=== PATIENT | female | born 1990 | race Caucasian/White ===

== ENCOUNTER 2018-07-22 09:36 | Emergency (ER) | payer MEDICAID, SELFPAY ==
[2018-07-22 09:40] VITALS: BP 118/64; PULSE 109; RESP 16; TEMP 36.2; O2SAT 97
--- NOTE | 2018-07-22 11:09 | ED.GENADUL_ITS ---
Discharge Plan Disposition Patient Disposition: HOME Condition: Stable Discharge Details Chief Complaint: Sorethroat Clinical Impression: Strep tonsillitis Primary Care Provider: None,None ED Provider: Sj Kohler Home Meds and New Rx's Prescriptions: New amoxicillin 500 mg capsule 500 mg PO BID Qty: 20 RF: 0 Continued Mini Pill 1 tab PO DAILY RF: 0 Discharge Instructions Instructions: Strep Throat (ED) Additional Instructions: Take antibiotic's as prescribed and until fully gone. Please return to the [facility] department for any new or significant worsening of symptoms otherwise follow-up with primary care provider for reassessment if not improving after antibiotics are completed Stand Alone Forms: Work Release Referrals: Primary Care Provider [Outside] (As needed for reassessment) Discharge Data Discharge Date/Time-TO BE ENTERED AT DEPARTURE: 07/22/18 13:17 Medical Decision Making Patient presenting the emergency department for chief complaint of sore throat for last 3 days. She states chills throughout the evening and fever at night that seemed to resolve by morning and symptoms have slightly improved but given that this is been persistent for the last 3 days with some lymph node swelling to her neck she is presenting for concern of strep throat. Patient denies any nasal congestion cough, or secondary symptoms. Patient has bilateral tonsillary erythema and hypertrophy with superior anterior cervical lymphadenopathy that is also mild otherwise patient is nontoxic in appearance uvula midline no signs of Vikas's angina, peritonsillar abscess, or retropharyngeal abscess. 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 This does correlate with patient's clinical symptoms and physical exam. Patient placed upon amoxicillin for 10 days. Return precautions discussed. After discussion of diagnosis and plan of care patient has no further needs, questions, or concerns and states clear understanding to return to the emergency department for any worsening symptoms. HPI General Mode of arrival: ambulatory . Date/Time Provider Initiated Documentation: 07/22/18 10:51 . Limitations to Documentation: no limitations . Information obtained by: patient and RN notes reviewed . History of Present Illness 28 year old F presents to the emergency department with the chief complaint of Sore throat, described as moderate, with intensity rated at 5. Quality is described as aching, and is localized to the mouth (Sore throat). Patient started experiencing this day(s) (3) and it has been intermittent. No relieving factors improve symptom(s), Patient did receive the following treatments prior to arrival, none Related Data Home Medications Medication Instructions Recorded Confirmed Mini Pill 1 tab PO DAILY 07/22/18 amoxicillin 500 mg PO BID #20 cap 07/22/18 Previous Rx's Medication Instructions Recorded amoxicillin 500 mg PO BID #20 cap 07/22/18 Allergies Allergy/AdvReac Type Severity Reaction Status Date / Time sulfamethoxazole Allergy Severe Unverified 07/22/18 09:42 [From ] trimethoprim [From ] Allergy Severe Unverified 07/22/18 09:42 Latex, Natural Rubber Allergy Intermediate Swelling/Ed Unverified 07/22/18 09:42 alonso General Stated Complaint: Sorethroat LAURA: 4 Review of Systems Constitutional Reports chills, Reports fever(s) and Denies headache(s) ENT Denies change in voice, Denies dysphagia, Denies otalgia, Denies headache(s), Denies hoarseness, Denies lip swelling, Denies mouth lesions, Denies nasal congestion, Reports odynophagia, Reports sore throat, Denies throat swelling and Denies tongue swelling Cardiovascular Denies chest pain Respiratory Denies chest congestion and Denies cough Gastrointestinal Denies dysphagia and Reports odynophagia Neurologic Denies headache(s) Allergic/Immunologic Denies lip swelling, Denies throat swelling and Denies tongue swelling [facility] Social History Smoking/Tobacco Use Status: Never Drug use: Occasionally Exam Const General: cooperative, healthy appearing, comfortable, no acute distress and not ill appearing Orientation: alert, awake and oriented x3 HENMT Head: normal to inspection and normocephalic Ears: hearing grossly normal bilaterally, external ears normal, TM's normal bilaterally and mastoids normal General nose exam: external nose normal and nares normal Face and sinus: normal facial exam Mouth: oral mucosae normal, lip normal, tongue normal, no audible dysphonia, no drooling and no trismus Throat: uvula midline, abnormal tonsil bilaterally erythema and hypertrophy 2+, no peritonsillar masses and posterior oropharynx abnormal erythema Neck Neck: normal visual inspection, full ROM, no meningeal signs and lymphadenopathy (Mild superior anterior cervical) Resp Effort & Inspection: normal respiratory effort, able to speak in complete sentences and no stridor Skin General skin exam: no rashes or lesions noted Course Vital Signs Temperature 36.2 C L 07/22/18 09:40 Pulse 109 H 07/22/18 09:40 Respiratory Rate 16 07/22/18 09:40 Blood Pressure 118/64 07/22/18 09:40 Pulse Oximetry 97 07/22/18 09:40 Temperature 36.2 C L 07/22/18 09:40 Temperature Source Skin 07/22/18 09:40 Pulse 109 H 07/22/18 09:40 Respiratory Rate 16 07/22/18 09:40 Respiratory Effort Non-Labored 07/22/18 09:41 Blood Pressure 118/64 07/22/18 09:40 Blood Pressure Position Sitting 07/22/18 09:40 Pulse Oximetry 97 07/22/18 09:40 Oxygen Delivery Method Room Air 07/22/18 09:40 Oxygen Flow Rate 0 07/22/18 09:40 Pain Level 5 07/22/18 09:40 Lab/Test Results Lab/Test Results: POC Strep Test-YUMIKO(Rapid) Start: 07/22/18 09:54 Freq: .Rapid Strep Test Status: Active Protocol: Document 07/22/18 09:55 MMQ (Rec: 07/22/18 09:55 MMQ [id number]) Strep test-YUMIKO(Rapid)-POC POC-Strep test-YUMIKO (Rapid) Positive POC-Strep test-YUMIKO (Rapid) Positive
== END 2018-07-22 13:17 | disposition home or self-care (01) ==
PROVIDERS: Emergency Provider Nurse Practitioner Family
DX: J03.00 Acute streptococcal tonsillitis, unspecified (principal)
CPT/HCPCS: 87880; 99283

== ENCOUNTER 2020-12-25 02:03 | Emergency (ER) | payer MEDICAID, SELFPAY ==
--- NOTE | 2020-12-25 02:06 | ED.GENADUL_ITS ---
Discharge Plan Disposition Patient Disposition: HOME Condition: Good Discharge Details Clinical Impression: Kidney stone Primary Care Provider: None,None ED Provider: Piyush Henson Home Meds and New Rx's Prescriptions: New cephalexin 500 mg capsule 500 mg PO QID 3 Days Qty: 12 RF: 0 Continued [id number]-lac-Nn-FA 1 mg Tablet 1 tab PO DAILY RF: 0 Discharge Instructions Instructions: Kidney Stones (ED) Additional Instructions: At this time your symptoms and urinalysis are concerning for potential kidney stone. Please drink plenty of fluids, take Tylenol and the pain pills as needed. The pain pills do have Tylenol in them, you can take 500 mg Tylenol with them. Due to your we have decided to hold off on imaging at this time. If you have continued pain over the next 36 hours does not get better please return for reassessment and potential x-ray and ultrasound. Please use the urine strainer to look for your kidney stone. As a precaution we have started you on an antibiotic to prevent any infection associated with potential kidney stone. It is been sent to your pharmacy. Please take this as directed. If you notice any worsening of your symptoms, or any new symptoms such as vomiting, diarrhea, fever, chills, shortness of breath, chest pain, numbness, weakness, or fainting , please return immediately to the emergency department for reevaluation. Please follow up with your primary care provider as soon as possible for reassessment and reevaluation. As always, it was a pleasure participating in your medical care today. Stand Alone Forms: Work Release Referrals: Sj Suazo [ [facility] STAFF PHYSICIAN] - Medical Decision Making 30-year-old female who is a currently 17 weeks presents today for evaluation of left flank pain. Flank pain came on suddenly a few hours ago when the patient was at work. She denies any radiation to her groin. She denies any vaginal discharge or pelvic cramping. She denies any history of kidney stones. She denies any urinary frequency or burning. She did take 500 mg of Tylenol at home and this did not change anything. No other modifying factors. No other complaints at this time. Physical exam demonstrates no flank or CVA tenderness, mild left paraspinal spasm. Bedside ultrasound demonstrates minimal hydronephrosis on the left kidney, no hydronephrosis on the right. Urinalysis shows no evidence of infection, but does show evidence of moderate blood and 20-50 RBCs. As well as rare calcium oxalate stones. Suspect concern for potential kidney stone as this would correlate with the patient's signs and symptoms. Due to the patient's current after discussing the risks and benefits patient would like to hold off on radiographic imaging at this time. I do feel this is appropriate. Patient drove herself, and is not a candidate for IM narcotics at this time. She does not have someone who can pick her up. We will give her [place] to go. Out of an abundance of precaution we will start the patient on Keflex to prevent any infection. Recommend that the patient return for reassessment if she has continued pain after 36 hours. Recommend continued hydration, Tylenol, [place] as needed. Discussed red flags for which to return. I have extensively reviewed the treatment plan and discharge instructions with the patient. I have addressed all patient concerns at this time. The patient was made aware of what symptoms to monitor for that would warrant a return to the emergency department. Discussed the plan with the patient, they demonstrate verbal understanding and agreement with our assessment and plan at this time. The documentation in this chart was dictated using [employer] dictation software. Please excuse any dictation errors. HPI General Date/Time Provider Initiated Documentation: 12/25/20 02:04 . HPI Narrative: 30-year-old female who is a currently 17 weeks presents today for evaluation of left flank pain. Flank pain came on suddenly a few hours ago when the patient was at work. She denies any radiation to her groin. She denies any vaginal discharge or pelvic cramping. She denies any history of kidney stones. She denies any urinary frequency or burning. She did take 500 mg of Tylenol at home and this did not change anything. No other modifying fa ctors. No other complaints at this time. Related Data Home Medications Medication Instructions Recorded Confirmed cephalexin 500 mg PO QID 3 Days #12 cap 12/25/20 [id number]-FA 1 tab PO DAILY 12/25/20 12/25/20 Previous Rx's Medication Instructions Recorded cephalexin 500 mg PO QID 3 Days #12 cap 12/25/20 Allergies Allergy/AdvReac Type Severity Reaction Status Date / Time sulfamethoxazole Allergy Severe Unverified 12/25/20 02:17 [From ] trimethoprim [From ] Allergy Severe Unverified 12/25/20 02:17 Latex, Natural Rubber Allergy Intermediate Swelling/Ed Unverified 12/25/20 02:17 alonso General LAURA: 4 Review of Systems All systems reviewed & are unremarkable except as noted in HPI and below PFSH Social History Smoking/Tobacco Use Status: Never Smoking risk assessment performed?: Yes Alcohol Intake: never Drug use: Occasionally Exam Narrative Exam Narrative: 1.Const: Well-nourished, Well-developed, appearing stated age 2.Eyes: PERRL, no conjunctival injection, and symmetrical lids. 3.ENT: Atraumatic external nose and ears. Moist MM. Neck: Symmetric, trachea midline, No thyromegaly. 4.CVS: +S1/S2, No murmurs or gallops. Peripheral pulses 2+ and equal in all extremities. Brisk capillary refill in all extremities. 5.RESP: Unlabored respiratory effort. Clear to auscultation bilaterally. No wheezes rales or rhonchi 6.GI: Soft, Nontender/Nondistended, No hepatosplenomegaly. No guarding or rebound. No flank or CVA tenderness. No pelvic or suprapubic tenderness. 7.MSK: Normocephalic/Atraumatic, Extremities w/o deformity or ttp No cyanosis or clubbing, Normal movement of all extremities 8.Skin: Warm, Dry. No rashes or lesions. 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 Sensation grossly intact, no focal neurologic deficits. 10.Psych: (AAO) x3. Appropriate mood and affect
[2020-12-25 02:07] VITALS: BP 137/69; PULSE 106; RESP 16; TEMP 36.7; O2SAT 97
[2020-12-25 02:24] LABS: Bilirubin Negative (Negative); Blood Moderate (Negative); Clarity Sl Cloudy (Clear); Glucose Negative (Negative); Ketones >=160 mg/dL (Negative); Leukocyte Esterase Negative (Negative); Nitrite Negative (Negative); Specific Gravity >= 1.030 (1.005-1.025); Urobilinogen 0.2 EU/dL (Up TO 0.2)
[2020-12-25] MEDS: Lidocaine 5% Patch 1 PATCH TP (02:24)
[2020-12-25 02:33] LABS: Bacteria Few HPF (Negative); C & S Indicated? No/Sq. Contamination; Casts Negative LPF (Negative); Crystals Rare Calcium Oxalate HPF (Negative); Epithelial Cells Moderate HPF (Negative); Mucus Moderate (Negative); RBC 20-50 HPF (0-2)
[2020-12-25] MEDS: Cephalexin 500 MG CAP, 4 CAPS/BTL PO (02:58)
== END 2020-12-25 03:49 | disposition home or self-care (01) ==
LOC: ER 03:01
PROVIDERS: Emergency Provider Student in an Organized Health Care Education/Training Program
DX: O26.892 Other specified pregnancy related conditions, second trimester (principal); N20.0 Calculus of kidney; Z3A.17 17 weeks gestation of pregnancy
CPT/HCPCS: 99284; 81003; 81015; 99283

== ENCOUNTER 2021-10-31 12:28 | Emergency (ER) | payer MEDICAID, SELFPAY ==
[2021-10-31 12:38] VITALS: BP 134/78; PULSE 98; RESP 18; TEMP 37.1; O2SAT 97
== END 2021-10-31 16:16 | disposition left before discharge ==
DX: Z53.21 Procedure and treatment not carried out due to patient leaving prior to being seen by health care provider (principal)

== ENCOUNTER 2022-01-02 14:54 | Emergency (ER) | payer MEDICAID, SELFPAY ==
[2022-01-02 14:58] VITALS: BP 135/86; PULSE 98; RESP 16; TEMP 36.6; O2SAT 98
--- NOTE | 2022-01-02 15:23 | ED.GENADUL_ITS ---
Discharge Plan Disposition Patient Disposition: HOME Condition: Stable Discharge Details Chief Complaint: Urinary Clinical Impression: Hematuria Primary Care Provider: None,None ED Provider: Pablito Dickens Home Meds and New Rx's Prescriptions: No Action [id number]-Sr-[id number] 1 mg Tablet 1 tab PO DAILY Discharge Instructions Instructions: Hematuria (ED) Additional Instructions: Please follow-up with your primary care physician. Please follow-up with urology as scheduled. Return to the emergency department for any worsening symptoms Medical Decision Making 31-year-old female history of kidney stones, currently 7 months , presents with asymptomatic hematuria over the last several hours, denies frequency urgency or dysuria denies back pain fevers chills nausea or vomiting, denies vaginal bleeding or rectal bleeding. No new strenuous physical activity that would predispose her to rhabdo. Consider early UTI versus asymptomatic kidney stone versus less likely rhabdomyolysis; will obtain UA as well as urine . Pending results consider disposition with treatment for UTI versus further labs and possibly imaging. Patient currently resting comfortably no acute distress afebrile nontoxic. 16: 07 evidence of hematuria. No evidence of UTI. Given asymptomatic nontoxic afebrile will have patient follow-up closely with urology. Given home care instructions and return precautions. HPI General Date/Time Provider Initiated Documentation: 01/02/22 15:13 . HPI Narrative: 31-year-old female history of kidney stones, presents with asymptomatic bloody urine, denies fevers chills nausea vomiting back pain or urinary symptoms such as frequency or dysuria. Currently is 7 months . No recent heavy exertion Related Data Home Medications Medication Instructions Recorded Confirmed ofuvewcp-zie-Ac-FA 1 mg 1 tab PO DAILY 12/25/20 01/02/22 tablet Allergies Allergy/AdvReac Type Severity Reaction Status Date / Time sulfamethoxazole Allergy Severe Unverified 12/25/20 02:17 [From ] trimethoprim [From ] Allergy Severe Unverified 12/25/20 02:17 Latex, Natural Rubber Allergy Intermediate Swelling/Ed Unverified 12/25/20 02:17 alonso General Stated Complaint: Urinary LAURA: 4 Review of Systems Narrative: Review of Systems Constitutional: negative Eyes: negative ENT: negative Cardiovascular: negative Respiratory: negative Gastrointestinal: negative : Bloody urine Musculoskeletal: negative Skin: negative Neurologic: negative Psych: negative PFSH All Active Problems (Updated 01/02/22 @ 16:08 by Pablito Dickens MD) Kidney stone (Chronic) Hematuria (Acute) Social History Smoking/Tobacco Use Status: Never Smoking risk assessment performed?: Yes Alcohol Intake: current Alcohol Intake frequency: a few times a month Alcohol type: hard liquor Drug use: Occasionally Substance use type: marijuana Do you feel safe at home: Yes Do you feel safe in your relationship?: Yes Exam Narrative Exam Narrative: Physical Examination General: alert, awake, cooperative, resting comfortably, no acute distress HEENT: normocephalic, atraumatic; PERRL, EOM intact, conjunctiva normal; no nasal discharge; moist mucous membranes, oral and pharyngeal mucosa normal, tolerating secretions Neck: supple, trachea midline; full ROM Chest: normal to inspection Respiratory: normal respiratory effort, speaking in full sentences, clear to auscultation, no wheezing, rales or rhonchi Cardiac: regular rate, regular rhythm, S1S2 intact, no murmurs rubs or gallops GI: abdomen soft, non-tender, non-distended; no palpable mass or hepatosplenomegaly : No CVA tenderness Skin: no lesions, rashes or trauma appreciated Neuro: AAOx3, normal speech, moving all extremities Psych: Appropriate mood and affect Course Vital Signs Vital signs: Vital Signs Temperature 36.6 C 01/02/22 14:58 Pulse 98 H 01/02/22 14:58 Respiratory Rate 16 01/02/22 14:58 Blood Pressure 135/86 01/02/22 14:58 Pulse Oximetry 98 01/02/22 14:58 Temperature 36.6 C 01/02/22 14:58 Temperature Source Temporal Artery Scan 01/02/22 14:58 Pulse 98 H 01/02/22 14:58 Respiratory Rate 16 01/02/22 14:58 Respiratory Effort Non-Labored 01/02/22 15:02 Blood Pressure 135/86 01/02/22 14:58 Blood Pressure Position Sitting 01/02/22 14:58 Pulse Oximetry 98 01/02/22 14:58 Oxygen Delivery Method Room Air 01/02/22 14:58 Oxygen Flow Rate 0 01/02/22 14:58 Pain Level 0 01/02/22 15:05 PAWSS Have you Been Recently Intoxicated or Drunk Within the Last 30 days?: No Have you Ever Experienced Previous Episodes of Alcohol Withdrawal?: No Have you ever Experienced Withdrawal Seizures?: No Have you ever Experienced Delirium Tremens(DT)s?: No Have you ever undergone Alcohol Rehabilitation Treatment (i.e, inpt ot outpatient treatment programs)?: No Have you ever Experienced Blackouts?: No Have you ever Combined Alcohol with other Downers within the last 90 days?: No Have you ever Combined Alcohol with any other Substance of Abuse during the last 90 days?: No Positive Blood Alcohol level on Presentation? [PCS.BAL]: No Evidence of Increased Autonomic Activity (i.e. HR>120, tremor, sweating, agitation, nausea)?: No Result: 0
[2022-01-02 15:50] LABS: Bilirubin Negative (Negative); Blood Large (Negative); Clarity Cloudy (Clear); Glucose Negative (Negative); Ketones Negative (Negative); Leukocyte Esterase Negative (Negative); Nitrite Negative (Negative); Specific Gravity >= 1.030 (1.005-1.025); Urobilinogen 0.2 EU/dL (Up TO 0.2); pH 5.5 (5-8)
[2022-01-02 15:58] LABS: Bacteria Few HPF (Negative); Crystals Negative HPF (Negative); Epithelial Cells Many HPF (Negative); Mucus Negative (Negative); RBC >50 HPF (0-2); WBC 0-2 HPF (0-5)
[2022-01-02 15:59] LABS: C & S Indicated? No/Sq. Contamination
--- NOTE | 2022-01-02 18:05 | NUR.NOTE ---
Nursing Note: Referral faxed to [facility] for hematuria in 1 to 2 weeks.
== END 2022-01-02 16:13 | disposition home or self-care (01) ==
PROVIDERS: Emergency Provider Emergency Medicine
DX: R31.9 Hematuria, unspecified (principal)
CPT/HCPCS: 81025; 99281; 81003; 81015

== ENCOUNTER 2022-01-03 08:09 | Emergency (ER) | payer MEDICAID, SELFPAY ==
[2022-01-03 08:24] VITALS: BP 143/75; PULSE 85; RESP 18; TEMP 36.8; O2SAT 98
--- NOTE | 2022-01-03 09:30 | DI.CT_ITS ---
Exam(s) CT RENAL COLIC WO EXAM: CT RENAL COLIC WO CLINICAL HISTORY: rt flank pain, hematuria, nausea/vomiting. TECHNIQUE: Imaging Protocol: Axial computed tomography images with coronal and sagittal reformatted images were created and reviewed. COMPARISON: No exams were available for comparison FINDINGS: ABDOMEN: Lung Bases: Normal where visualized. Liver: Normal density. No measurable mass. Gallbladder and biliary tract: Gallstones are present. There is no biliary ductal dilatation. Pancreas: Normal density, no abnormal calcifications or inflammatory process. Spleen: Normal. Kidneys: Normal size, contour and axis.There is a 6 mm right UPJ stone causing mild hydronephrosis. There is bilateral nephrolithiasis. No masses seen. Adrenal glands: No mass is seen. Lymph nodes: Within normal limits. Abdominal Aorta: Abdominal portion non-dilated. PELVIS: Bladder:Symmetric distention, no gross wall thickening. Bowel: No obstruction or bowel wall thickening. Appendix is unremarkable. Peritoneal cavity: No ascites, collection or mesenteric inflammatory response. No free air. Reproductive organs: Unremarkable as visualized. Bones: Within normal limits. Soft Tissues: Within normal limits. IMPRESSION: 1. There is a 6 mm right UPJ stone causing mild hydronephrosis. 2. Bilateral nephrolithiasis. 3. Cholelithiasis. No biliary ductal dilatation. 4. Findings were discussed with Dr. Olivo at 10:09 a.m. on 01/03/2022. RADIATION DOSE DELIVERED: 1,031.29mGy.cm Total DLP DATA REPOSITORY: All CT scans at this facility are submitted to the National Radiology Data Registry (NRDR) Dose Index Registry (DIR) with the [employer] (A[employer]). RADIATION OPTIMIZATION: All CT scans at this facility use at least one of these dose optimization te chniques: automated exposure control; mA and/or kV adjustment per patient size (includes targeted exa ms where dose is matched to clinical indication); or iterative reconstruction.
--- NOTE | 2022-01-03 09:34 | W.ED.GENAD ---
Discharge Plan Disposition Patient Disposition: HOME Condition: Stable Discharge Details Clinical Impression: Kidney stone ED Provider: Clif Olivo Home Meds and New Rx's Prescriptions: No Action norethindrone (contraceptive) 0.35 mg tablet 1 tab PO HS Label Comments: TAKE 1 TABLET BY MOUTH EVERY DAY Discharge Instructions Instructions: Kidney Stones (ED) Additional Instructions: Please follow-up with urology. There is plan for likely procedure on . Please call urology office later today or tomorrow to arrange follow-up. Please contact your primary care physician to arrange follow-up. Return to the ER immediately for any worsening or new concerning symptoms. Referrals: Craig Haley MD [ [facility] STAFF PHYSICIAN] - Discharge Data Discharge Date/Time-TO BE ENTERED AT DEPARTURE: 01/03/22 10:53 Medical Decision Making 941 -- 31-year-old female with history of renal stone diagnosed during without imaging, here 7 months with hematuria that started yesterday, initially painless, now with right flank pain that started this morning. Suspect renal stone. Plan to CT abdomen pelvis. 1022 --CT of the abdomen pelvis interpreted by radiology: 1. There is a 6 mm right UPJ stone causing mild hydronephrosis. 2. Bilateral nephrolithiasis. 3. Cholelithiasis.? No biliary ductal dilatation. 4. Findings were discussed with Dr. Olivo at 10:09 a.m. on 01/03/2022. I consulted urology, Dr. Haley, discussed ED presentation course, he will plan on stone removal procedure on . He recommended prescribing Toradol. Patient reassessed and currently pain-free. Tolerating p.o. All results were discussed with the patient. Discharge plan discussed with the patient. HPI General Mode of arrival: ambulatory. Date/Time Provider Initiated Documentation: 01/03/22 09:02. Limitations to Documentation: no limitations. Information obtained by: patient. HPI Narrative: 31-year-old female presents with chief complaint of right flank pain. Patient has history of renal stones that were diagnosed during . She notes she passed a large stone during . She is now 7 months . She came to the emerge department yesterday with hematuria that was painless. Patient was felt to have likely kidney stone and discharged. This morning around 5 AM she developed severe pain in right flank. Pain persistent. Severe. Radiating to right lower abdomen. Associated nausea and vomiting. She continues to have hematuria. Related Data Home Medications Medication Instructions Recorded Confirmed norethindrone (contraceptive) 0.35 1 tab PO HS 01/04/22 01/16/22 mg tablet Allergies Allergy/AdvReac Type Severity Reaction Status Date / Time sulfamethoxazole Allergy Severe Hives Verified 01/13/22 13:44 [From ] trimethoprim [From ] Allergy Severe Hives Verified 01/13/22 13:44 Latex, Natural Rubber Allergy Intermediate Swelling/Ed Verified 01/13/22 13:44 alonso General Stated Complaint: Nk/Back Pain LAURA: 3 Review of Systems All systems reviewed & are unremarkable except as noted in HPI and below Constitutional Constitutional: Denies fever(s) Genitourinary Genitourinary: Reports as per HPI, Denies urinary urgency and Denies vaginal discharge Integumentary/Breasts Skin/Breast: Reports rash (On breast that started 2 days ago after swimming in a hotel pool, no inflam) PFSH All Active Problems (Updated 01/16/22 @ 06:19 by Elena Yap) Kidney stone (Chronic) Hematuria (Acute) Medical History (Updated 01/16/22 @ 06:19 by Elena Yap) Kidney stone Surgical History (Updated 01/16/22 @ 06:20 by Elena Yap) H/O lithotripsy History of adenoidectomy Hx of wisdom tooth extraction Social History Smoking/Tobacco Use Status: Never Smoking risk assessment performed?: Yes Alcohol Intake: current Alcohol Intake frequency: a few times a week Alcohol type: beer and hard liquor Drug use: Occasionally Substance use type: marijuana Details: pt states she smokes it, close to a week ago Do you feel safe at home: Yes Do you feel safe in your relationship?: Yes Exam Const General: cooperative and no acute distress [facility] [place] Head: normocephalic Mouth: moist mucous membranes Eyes Conjunctivae: normal conjunctivae Sclera: normal sclerae Resp Auscultation: clear to auscultation bilaterally, no rales, no rhonchi and no wheezes Cardio Rate: regular rate and not tachycardic Rhythm: regular rhythm GI Palpation: soft, not firm, no guarding, no masses, not rigid and nontender Skin Rashes: rashes noted (she has macular rash of the upper breasts bilaterally with no erythema) Neuro General: patient alert, patient awake and tone normal Extrem General: no edema Psych Appearance: grossly normal Mental Status: mental status grossly normal Course Vital Signs Vital signs: Vital Signs Temperature 36.8 C 01/03/22 08:24 Pulse 85 01/03/22 08:24 Respiratory Rate 18 01/03/22 08:24 Blood Pressure 143/75 H 01/03/22 08:24 Pulse Oximetry 98 01/03/22 08:24 Temperature 36.8 C 01/03/22 08:24 Temperature Source Temporal Artery Scan 01/03/22 08:24 Pulse 85 01/03/22 08:24 Respiratory Rate 18 01/03/22 08:24 Respiratory Effort Non-Labored 01/03/22 08:28 Blood Pressure 143/75 H 01/03/22 08:24 Blood Pressure Position Sitting 01/03/22 08:24 Pulse Oximetry 98 01/03/22 08:24 Oxygen Delivery Method Room Air 01/03/22 08:24 Oxygen Flow Rate 0 01/03/22 08:24
== END 2022-01-03 10:53 | disposition home or self-care (01) ==
PROVIDERS: Emergency Provider Student in an Organized Health Care Education/Training Program
DX: N13.2 Hydronephrosis with renal and ureteral calculous obstruction (principal)
CPT/HCPCS: 99284; 74176

== ENCOUNTER 2022-01-04 21:19 | Emergency (ER) | payer MEDICAID, SELFPAY ==
[2022-01-04 21:25] VITALS: BP 123/93; PULSE 77; RESP 20; TEMP 37; O2SAT 99
--- NOTE | 2022-01-04 21:31 | ED.GENADUL_ITS ---
Discharge Plan Disposition Patient Disposition: HOME Condition: Stable Discharge Details Clinical Impression: Kidney stone Primary Care Provider: None,None ED Provider: Michael Dickey Home Meds and New Rx's Prescriptions: Continued norethindrone (contraceptive) 0.35 mg tablet 1 tab PO HS Label Comments: TAKE 1 TABLET BY MOUTH EVERY DAY No Action ketorolac 10 mg tablet 10 mg PO Q6H PRN (Reason: pain) 5 Days Qty: 30 0RF Discharge Instructions Instructions: Kidney Stones (ED) Additional Instructions: follow up as scheduled with urology for surgery tomorrow if you feel more ill, have persistent vomiting or fevers return to the emergency department Medical Decision Making 31 yo female who had a ct done on 01/03 for flank pain and found to have bilateral kidney stones and an obstructing right upj stone. She is scheduled to have surgery with urology tomorrow. She arrives tonight with continued right flank pain, had no tylenol at home and was told not to take nsaids before the procedure. She denies fevers, chills, chest pain dyspnea. She localizes the pain to the right lower back and radiates to the right groin. She has no abdominal tenderness. Given recent ct suspect renal colic with pain not adequately controlled. No fevers or other systemic symptoms to suggest sepsis, do not feel labs indicated, will treat her pain and reassess. pt feels significantly better after one dose of im dilaudid and feel well enough for d/c. Discussed that one time dose of an opiate unlikely to cause significant issues with but if she continues to take opiates at home she should not breastfeed her child. She will f/u as scheduled for surgery tomorroow, return precautions given Differential Diagnosis Differential Diagnosis: kidney stone, renal colic HPI General Mode of arrival: ambulatory . Date/Time Provider Initiated Documentation: 01/04/22 21:19 . Limitations to Documentation: no limitations . Information obtained by: patient . History of Present Illness 31 year old F presents to the emergency department with the chief complaint of right flank pain, described as severe, with intensity rated at 9. Quality is described as sharp, and is localized to the back. Patient abdomen. Patient started experiencing this day(s) (2) and it has been constant. No relieving factors improve symptom(s), No exacerbating factors reported . Patient notes denies fever/chills. Patient did receive the following treatments prior to arrival, none Related Data Home Medications Medication Instructions Recorded Confirmed ketorolac 10 mg tablet 10 mg PO Q6H PRN pain 5 days #30 01/03/22 01/04/22 tabs norethindrone (contraceptive) 0.35 1 tab PO HS 01/04/22 01/04/22 mg tablet Previous Rx's Medication Instructions Recorded ketorolac 10 mg tablet 10 mg PO Q6H PRN pain 5 days #30 01/03/22 tabs Allergies Allergy/AdvReac Type Severity Reaction Status Date / Time sulfamethoxazole Allergy Severe Hives Verified 01/04/22 21:28 [From ] trimethoprim [From ] Allergy Severe Hives Verified 01/04/22 21:28 Latex, Natural Rubber Allergy Intermediate Swelling/Ed Verified 01/04/22 21:28 alonso General Stated Complaint: FlankPain LAURA: 3 Review of Systems All systems reviewed & are unremarkable except as noted in HPI and below Constitutional Constitutional: Denies chills, Denies fever(s) and Denies weakness Cardiovascular Cardiovascular: Denies dyspnea Respiratory Respiratory: Denies cough and Denies dyspnea Neurologic Neurologic: Denies weakness PFSH All Active Problems (Updated 01/04/22 @ 22:00 by Michael Dickey MD) Kidney stone (Chronic) Hematuria (Acute) Surgical History (Updated 01/04/22 @ 11:27 by Escobar Vasquez) History of adenoidectomy Hx of wisdom tooth extraction Social History Smoking/Tobacco Use Status: Never Smoking risk assessment performed?: Yes Alcohol Intake: current Alcohol Intake frequency: a few times a month Alcohol type: hard liquor Drug use: Occasionally Substance use type: marijuana Do you feel safe at home: Yes Do you feel safe in your relationship?: Yes Exam Const Orientation: alert HENMT Head: normal to inspection Ears: external ears normal General nose exam: external nose normal Mouth: moist mucous membranes Eyes General: appearance normal, both eyes and all related structures Neck Neck: normal visual inspection Resp Effort & Inspection: normal respiratory effort and able to speak in complete sentences Cardio Rate: regular rate GI Palpation: soft and nontender Skin General skin exam: no rashes or lesions noted Neuro General: patient alert and patient oriented x3 Extrem General: normal to inspection Psych Mental Status: mental status grossly normal Course Vital Signs Vital signs: Vital Signs Temperature 37 C 01/04/22 21:25 Pulse 77 01/04/22 21:25 Respiratory Rate 20 01/04/22 21:25 Blood Pressure 123/93 H 01/04/22 21:25 Pulse Oximetry 99 01/04/22 21:25 Temperature 37 C 01/04/22 21:25 Temperature Source Temporal Artery Scan 01/04/22 21:25 Pulse 77 01/04/22 21:25 Respiratory Rate 20 01/04/22 21:25 Respiratory Effort 01/04/22 21:25 Blood Pressure 123/93 H 01/04/22 21:25 Pulse Oximetry 99 01/04/22 21:25 Oxygen Delivery Method Room Air 01/04/22 21:25 Oxygen Flow Rate 0 01/04/22 21:25 Pain Level 10 01/04/22 21:25
[2022-01-04] MEDS: HYDROmorphone 2 MG/ML SYR IM (21:59)
[2022-01-04 22:41] VITALS: BP 119/85; PULSE 75; RESP 18; TEMP 36.8; O2SAT 96
== END 2022-01-04 22:47 | disposition home or self-care (01) ==
PROVIDERS: Emergency Provider Emergency Medicine
DX: N20.2 Calculus of kidney with calculus of ureter (principal); Z32.02 Encounter for pregnancy test, result negative
CPT/HCPCS: 81025; 96372; 99284; J1170

== ENCOUNTER 2022-01-05 11:24 | Day surgery (SDC) | payer MEDICAID, SELFPAY ==
[2022-01-05] VITALS (9 sets, daily range): BP systolic 110–132; BP diastolic 57–89; PULSE 71–95; RESP 16–20; TEMP 36.6–36.8; O2SAT 95–97; BMI 39.6
--- NOTE | 2022-01-05 11:41 | W.PM.HP.N ---
Date of service: 01/05/22 Time of Service: 11:42 Assessment and Plan Assessment and plan (1) Kidney stone: Status: Chronic Assessment and plan: Symptomatically, I would not be surprised if her stone has migrated distally. We will be prepared to perform cystoscopy, retrograde pyelogram and ureteroscopy (either flexible or semirigid based on the stone location). We may place a ureteral stent and make a planned return to the OR as she has additional large stones in the kidneys. I do not have access to old films to make any judgement about benito rates of her stones. History of Present Illness History of Present Illness Chief Complaint: Right ureteral stone Narrative: This is a 31-year-old woman who previously passed the stone during a . She presented to the emergency department earlier this week with an acute onset of right sided flank pain. She was found to have a 6 mm right proximal ureteral stone along with bilateral nonobstructing kidney stones. Her pain has been persistent and intermittent. She has nausea but no fever or chills. She now feels the need to void but only small volumes of urine are obtained. She is not seeing any gross hematuria. She has no dysuria. Because of the persistence of her symptoms, she presents for ureteroscopy and stone manipulation. Review of Systems Narrative: No fevers or chills No vision change or dysphasia No diabetes or thyroid No shortness of breath, cough or hemoptysis No chest pain or palpitations No nausea, vomiting, hepatitis, ulcers, jaundice, diarrhea or constipation No seizures, strokes or peripheral neuropathy No bleeding disorders or anemia No gout or arthralgia PFSH All Active Problems (Updated 01/04/22 @ 22:00 by Michael Dickey MD) Kidney stone (Chronic) Hematuria (Acute) Surgical History History of adenoidectomy Hx of wisdom tooth extraction Social History Smoking/Tobacco Use Status: Never Smoking risk assessment performed?: Yes Alcohol Intake: current Alcohol Intake frequency: a few times a week Alcohol type: beer and hard liquor Drug use: Occasionally Substance use type: marijuana Details: pt states she smokes it, close to a week ago Do you feel safe at home: Yes Do you feel safe in your relationship?: Yes Meds Allergies and Home Medications Allergies Allergy/AdvReac Type Severity Reaction Status Date / Time sulfamethoxazole Allergy Severe Hives Verified 01/05/22 11:44 [From ] trimethoprim [From ] Allergy Severe Hives Verified 01/05/22 11:44 Latex, Natural Rubber Allergy Intermediate Swelling/Ed Verified 01/05/22 11:44 alonso Home Medications Medication Instructions Recorded Confirmed Type ketorolac 10 mg tablet 10 mg PO Q6H PRN pain 5 days #30 01/03/22 01/04/22 Rx tabs norethindrone (contraceptive) 0.35 1 tab PO HS 01/04/22 01/04/22 History mg tablet Exam Const General: cooperative Neck Neck: supple Resp Effort & Inspection: normal respiratory effort Auscultation: clear to auscultation bilaterally Cardio Rate: regular rate Rhythm: regular rhythm Neuro General: patient alert, patient awake and patient oriented x3
--- NOTE | 2022-01-05 11:50 | W.ANESPRE ---
General Info Date of Service Date Performed: 01/05/22 Height: 5 ft 2 in Weight: 98.2 kg Body Mass Index (BMI): 39.6 Surgical Procedure: Operation Date: 01/05/22 13:10 Proposed Procedure Side Surgeon p Cystoscopy/Retrograde/Ureteroscopy/Stone Manipulation/? Stone Craig Haley MD Meds Allergies and Home Medications Allergies Allergy/AdvReac Type Severity Reaction Status Date / Time sulfamethoxazole Allergy Severe Hives Verified 01/05/22 11:44 [From ] trimethoprim [From ] Allergy Severe Hives Verified 01/05/22 11:44 Latex, Natural Rubber Allergy Intermediate Swelling/Ed Verified 01/05/22 11:44 alonso Home Medication Medication Instructions Recorded ketorolac 10 mg tablet 10 mg PO Q6H PRN pain 5 days #30 01/03/22 tabs norethindrone (contraceptive) 0.35 1 tab PO HS 01/04/22 mg tablet Current Visit Medications: Current Medications Generic Name Dose Route Start Last Admin Trade Name Freq PRN Reason Stop Dose Admin Ringer's Solution 1,000 mls @ 80 mls/hr 01/05/22 06:00 IV 02/03/22 23:59 INFUSION JULIA Cefazolin Sodium/Dextrose 2 gm in 50 mls @ 100 mls/hr 01/05/22 06:00 Ancef Duplex IVPB 01/05/22 16:00 PREOP JULIA IV Miscellaneous Supplies 1 each 01/05/22 06:00 Iv Access IV 02/03/22 23:59 DIRECTED JULIA Sodium Chloride 0 ml 01/05/22 06:00 Normal Saline Flush 10 Ml Syr IV 02/03/22 23:59 PRN PRN Sodium Chloride 0 ml 01/05/22 06:00 Normal Saline 10 Ml Vial IJ 02/03/22 23:59 DIRECTED PRN Sterile Water 0 ml 01/05/22 06:00 Water,Injection,Sterile 10 Ml Vial IJ 02/03/22 23:59 DIRECTED PRN PFSH Active Problems Active Problems: Problem Status Onset Code Kidney stone N20.0 Hematuria R31.9 Medical History Medical History Comments:: Pt states she wakes up swinging from adenoidectomy Surgical History Surgical History History of adenoidectomy Hx of wisdom tooth extraction Tobacco Smoking/Tobacco Use Status: Never Alcohol Alcohol Intake: current Alcohol intake frequency: a few times a week Alcohol type: beer and hard liquor Substance Use Substance use: Occasionally Substance use type: marijuana Details: pt states she smokes it, close to a week ago Vital Signs and Lab Results Vital Signs Most Recent Vital Signs in EMR: Most Recent Vital Signs Temp Pulse Resp BP Pulse Ox 36.6 C 95 H 18 132/89 97 01/05/22 11:36 01/05/22 11:36 01/05/22 11:36 01/05/22 11:36 01/05/22 11:36 Vital Signs Comment Vital Signs Comment:: Temp Pulse Resp BP Pulse Ox 36.6 C 95 H 18 132/89 97 01/05/22 11:36 01/05/22 11:36 01/05/22 11:36 01/05/22 11:36 01/05/22 11:36 Lab Results Blood Type / Crossmatch: No Data to Display Complete Blood Count: No Data to Display Complete Metabolic Panel: No Data to Display Liver Function Panel: No Data to Display Coagulation Panel: No Data to Display Cardiac Panel: No Data to Display Arterial Blood Gas: No Data to Display Venous Blood Gas: No Data to Display Pancreas Panel: No Data to Display Thyroid Panel: No Data to Display Infectious Disease: No Data to Display Blood Cultures: No Data to Display Toxicology Panel: No Data to Display Panel: No Data to Display Anesthesia Assessment and Plan Anesthesia History Personal History: Other Family History: No Family History of Anesthesia Complications Exercise Tolerance Exercise Tolerance: Metabolic Equivalents>4 Pertinent Negatives Pertinent Negatives: No Symptoms of GERD, No Major Cardiovascular Symptoms or Complaints and No Major Pulmonary Symptoms or Complaints Cardiac & Pulmonary Exam Cardiac Exam: Normal S1/S2 Heart Sounds Pulmonary Exam: Clear Bilateral Breath Sounds Implantable Cardiac Device Does patient have a Pacemaker or an ICD?: No Airway Exam Known Difficult Airway: No Mallampati Class: 1 Mouth Opening: Normal (> 3cm) Thyromental Distance: Greater than 3 cm Neck Range of Motion: Full ROM Neck Circumference: Normal Teeth Condition: Normal Dentition ASA Classification ASA Score: ASA 2 Emergency Case?: No NPO Status NPO Status: NPO Clears >2 hours, Solids >8 hours Status Status: Negative HCG Anesthesia Plan Resuscitation Status: Full Code Anesthesia Technique: General Anesthesia Airway Planned: LMA Monitors Used: Standard Monitors
[2022-01-05] MEDS: Lactated Ringers 1,000 ML 80 ML IV (11:58)
[2022-01-05] MEDS: ceFAZolin 2 GM/50 ML BAG IVPB (12:33)
[2022-01-05] MEDS: Lidocaine 2% Jelly 6 ML SYR (12:47)
--- NOTE | 2022-01-05 13:16 | DI.RAD_ITS ---
Exam(s) XR RETROGRADE IN OR EXAM: XR RETROGRADE IN OR CLINICAL HISTORY: bilateral renal calculi TECHNIQUE: 2D and realtime digital imaging was performed. CONTRAST MATERIAL: Refer to procedure report. COMPARISON: No exams were available for comparison FINDINGS: Fluoroscopy was provided for Dr. Haley during the performance of a retrograde evaluation of the dacia l collecting system. Please refer to the procedure report for complete details. Ka,r=9.54 mGy IMPRESSION: RADIATION DOSE DELIVERED:
--- NOTE | 2022-01-05 13:19 | W.PM.DSUDISC ---
Discharge Plan Disposition Patient Disposition: HOME Condition: Good Discharge Details Reason For Visit: ureteroscopy Attending Provider: Craig Haley Primary Care Provider: None,None Home Meds and New Rx's Prescriptions: No Action ketorolac 10 mg tablet 10 mg PO Q6H PRN (Reason: pain) 5 Days Qty: 30 0RF norethindrone (contraceptive) 0.35 mg tablet 1 tab PO HS Label Comments: TAKE 1 TABLET BY MOUTH EVERY DAY Discharge Instructions Additional Instructions: no need to strain urine my office will contact patient to arrange followup flexible ureteroscopy to address stone in kidney pt has stent (without string) so frequency, urgency and blood in urine are common Activity:: Activity as Tolerated Shower/Bathe:: 24 hours Diet:: As Tolerated Discharge Orders Discharge Orders: Discharge Order (Routine); Ordered 01/05/22 Ordered By: Craig Haley DS: Diagnosis Discharge Diagnosis (1) Kidney stone: Status: Chronic
--- NOTE | 2022-01-05 13:23 | W.PM.OP ---
Date of service: 01/05/22 Time of Service: :23 Operative Note Operative Note DATE OF PROCEDURE: 01/05/22 PRE-OP DIAGNOSIS: Right ureteral stone POST-OP DIAGNOSIS: same right renal stone PROCEDURE: cystoscopy, right retrograde pyelogram, right semirigid ureteroscopy, holmium laser lithotripsy of stone, extraction of stone fragments, insert right ureteral stent SURGEON: Craig Haley ANESTHESIA TYPE: General LMA/ETT Refer to Anesthesia Record ESTIMATED BLOOD LOSS: 10 PATHOLOGY: other (stone for chemical analysis) COMPLICATIONS: None Patient was transported to: PACU Patient's condition: stable Implants: 6 Burmese by 22 to 30 cm right ureteral stent Indications: This is a 31-year-old woman who has a past history of kidney stones. She passed a stone during her recent . No imaging studies were taken at that time. More recently, she presented to our emergency department with right-sided flank pain. She was found to have a proximal 7 mm right ureteral stone with bilateral nonobstructing renal stones. She has remained symptomatic so she presents now for ureteroscopy. Findings: Stone had migrated distally into the right ureter Nonobstructing right lower pole kidney stone Procedure Description: The patient was brought to the operating room on 01/05/2022. She was given preoperative IV antibiotics. After successful induction of general anesthesia, she was placed in the dorsal lithotomy position. Her genitalia and perineum were prepped and draped. 2% Xylocaine jelly was then instilled into the urethra to act as a local anesthetic. A 22 Burmese rigid cystoscope was passed through the urethra into the bladder. The bladder was inspected with a 30 degree lens. The left ureteral orifice appeared normal in configuration and location. The right ureteral orifice appeared normal in location, but there was increased erythema surrounding the right orifice. No obvious swelling in the intramural portion of the ureter was identified. The right orifice was then cannulated with a 6 Burmese access catheter. Retrograde pyelogram was obtained by injecting Omnipaque through the access catheter under fluoroscopic guidance. The previously identified right proximal ureter was now seen in the right distal ureter. I was able to pass a guidewire through the lumen of the access catheter and advanced the wire up the remainder of the ureter. We left the wire in place as a safety wire. The cystoscope was removed and the semirigid ureteroscope was advanced through the urethra into the bladder. The scope was advanced up to the level of the stone. The stone appeared closely adherent to the ureteral mucosa. We then treated the stone with a 365 ?m holmium laser fiber. We used a dusting setting of 200 with a rate of 8. The stone fragmented/dusted quite nicely. Once the stone was more mobile within the lumen of the ureter, we grasped the stone fragment in a Angely stone basket and removed the stone fragment in its entirety. The stone was sent to pathology for chemical analysis. The ureteroscope was reintroduced and no additional large stone fragments were identified. Omnipaque was injected through the ureteroscope and no extravasation of contrast was identified. Based on her previous CT scan, we know that she has a large stone in the right lower pole. We elected to place a ureteral stent in preparation for a return to the operating room to address the right lower pole stone. We chose a 6 Burmese variable length stent and advanced the stent over the safety wire. The proximal end of the stent was curled in the upper pole calyx and the distal end was curled within the bladder. The patient tolerated this procedure well with no complications.
--- NOTE | 2022-01-05 14:06 | W.ANESPOSTOP ---
Postoperative Evaluation Date, Time and Location Date Performed: 01/05/22 Time Performed: 14:06 Patient Location: Day Surgery Unit Vital Signs Most Recent Imported Vital Signs: Most Recent Vital Signs Temp Pulse Resp BP Pulse Ox 36.7 C 82 17 127/81 95 01/05/22 13:50 01/05/22 13:55 01/05/22 13:55 01/05/22 13:55 01/05/22 13:55 Pain Score Most Recent Pain Score: Most Recent Pain Score Pain Level 0 01/05/22 13:55 Assessment Mental Status: Awake (Alert & Oriented to Patient Baseline) Airway and Respiratory Function: Patent airway with normal (patient baseline) respiratory exam Cardiovascular Function: Hemodynamically Stable Hydration Status: Adequately Hydrated Nausea & Vomiting: No Nausea or Vomiting Pain: Pt. Denies Any Pain Peripheral Nerve Block: Patient did not receive a nerve block
[2022-01-12 13:33] LABS: Source: Right Ureter
== END 2022-01-05 14:31 | disposition home or self-care (01) ==
PROVIDERS: Visit Provider Urology
PROC: (CPT 52356; principal; 2022-01-05 13:00)
DX: N20.1 Calculus of ureter (principal)
CPT/HCPCS: 52356; 74420; 82365; J0690; J1100; J1885; J2250; J2405; J2704

== ENCOUNTER 2022-01-16 06:12 | Day surgery (SDC) | payer MEDICAID, SELFPAY ==
[2022-01-16] VITALS (8 sets, daily range): BP systolic 104–124; BP diastolic 57–80; PULSE 70–80; RESP 15–22; TEMP 36.2–36.6; O2SAT 95–99; BMI 38.5
[2022-01-16] MEDS: Lactated Ringers 1,000 ML 80 ML IV (06:45)
--- NOTE | 2022-01-16 06:45 | DI.RAD_ITS ---
Exam(s) XR RETROGRADE IN OR EXAM: XR RETROGRADE IN OR CLINICAL HISTORY: Right ureteral stone. TECHNIQUE: Fluoroscopy was provided for the referring physician for guidance with performing retrogr linda procedure. COMPARISON: XA XR RETROGRADE IN OR from 01/05/2022 FINDINGS: Please see procedure note for details. Fluoro time: 13.2 seconds RADIATION DOSE DELIVERED: arpit Gilbert=3.94 mGy
--- NOTE | 2022-01-16 06:52 | W.ANESPRE ---
General Info Date of Service Date Performed: 01/16/22 Height: 5 ft 3 in Weight: 98.7 kg Body Mass Index (BMI): 38.5 Surgical Procedure: Operation Date: 01/16/22 07:40 Proposed Procedure Side Surgeon p Cystoscopy/Laser/Ureteroscopy/Removal of Ureteral Stent Right Craig Haley MD Meds Allergies and Home Medications Allergies Allergy/AdvReac Type Severity Reaction Status Date / Time sulfamethoxazole Allergy Severe Hives Verified 01/13/22 13:44 [From ] trimethoprim [From ] Allergy Severe Hives Verified 01/13/22 13:44 Latex, Natural Rubber Allergy Intermediate Swelling/Ed Verified 01/13/22 13:44 alonso Home Medication Medication Instructions Recorded norethindrone (contraceptive) 0.35 1 tab PO HS 01/04/22 mg tablet Current Visit Medications: Current Medications Generic Name Dose Route Start Last Admin Trade Name Freq PRN Reason Stop Dose Admin Ringer's Solution 1,000 mls @ 80 mls/hr 01/16/22 06:00 01/16/22 06:45 IV 02/12/22 23:59 80 mls/hr INFUSION JULIA Administration Cefazolin Sodium/Dextrose 2 gm in 50 mls @ 100 mls/hr 01/16/22 06:00 Ancef Duplex IVPB 02/12/22 23:59 PREOP JULIA IV Miscellaneous Supplies 1 each 01/16/22 06:00 Iv Access IV 02/12/22 23:59 DIRECTED JULIA Sodium Chloride 0 ml 01/16/22 06:00 Normal Saline Flush 10 Ml Syr IV 02/12/22 23:59 PRN PRN Sodium Chloride 0 ml 01/16/22 06:00 Normal Saline 10 Ml Vial IJ 02/12/22 23:59 DIRECTED PRN Sterile Water 0 ml 01/16/22 06:00 Water,Injection,Sterile 10 Ml Vial IJ 02/12/22 23:59 DIRECTED PRN PFSH Active Problems Active Problems: Problem Status Onset Code Kidney stone N20.0 Hematuria R31.9 Medical History Medical History (Updated 01/16/22 @ 06:19 by Elena Yap) Kidney stone Medical History Comments:: Pt states she wakes up swinging from adenoidectomy Surgical History Surgical History (Updated 01/16/22 @ 06:20 by Elena Yap) H/O lithotripsy History of adenoidectomy Hx of wisdom tooth extraction Tobacco Smoking/Tobacco Use Status: Never Alcohol Alcohol Intake: current Alcohol intake frequency: a few times a week Alcohol type: beer and hard liquor Substance Use Substance use: Occasionally Substance use type: marijuana Details: pt states she smokes it, close to a week ago Vital Signs and Lab Results Vital Signs Most Recent Vital Signs in EMR: Most Recent Vital Signs Temp Pulse Resp BP Pulse Ox 36.6 C 78 18 124/67 97 01/16/22 06:15 01/16/22 06:15 01/16/22 06:15 01/16/22 06:15 01/16/22 06:15 Lab Results Blood Type / Crossmatch: No Data to Display Complete Blood Count: No Data to Display Complete Metabolic Panel: No Data to Display Liver Function Panel: No Data to Display Coagulation Panel: No Data to Display Cardiac Panel: No Data to Display Arterial Blood Gas: No Data to Display Venous Blood Gas: No Data to Display Pancreas Panel: No Data to Display Thyroid Panel: No Data to Display Infectious Disease: No Data to Display Blood Cultures: No Data to Display Toxicology Panel: No Data to Display Panel: No Data to Display Anesthesia Assessment and Plan Anesthesia History Personal History: No History of Anesthesia Complications Family History: No Family History of Anesthesia Complications Exercise Tolerance Exercise Tolerance: Metabolic Equivalents>4 Cardiac & Pulmonary Exam Cardiac Exam: Normal S1/S2 Heart Sounds Pulmonary Exam: Clear Bilateral Breath Sounds Implantable Cardiac Device Does patient have a Pacemaker or an ICD?: No Airway Exam Known Difficult Airway: No Mallampati Class: 1 Mouth Opening: Normal (> 3cm) Thyromental Distance: Greater than 3 cm Neck Range of Motion: Full ROM Neck Circumference: Normal Teeth Condition: Normal Dentition ASA Classification ASA Score: ASA 2 Emergency Case?: No NPO Status NPO Status: NPO Clears >2 hours, Solids >8 hours Status Status: Negative HCG Anesthesia Plan Resuscitation Status: Full Code Anesthesia Technique: General Anesthesia Airway Planned: LMA Monitors Used: Standard Monitors
--- NOTE | 2022-01-16 07:00 | W.PM.HP.N ---
Date of service: 01/16/22 Time of Service: 07:00 History of Present Illness History of Present Illness Chief Complaint: Kidney stones Narrative: This is a 31-year-old woman who has a history of kidney stones. She passed a stone during the recent , but then developed a symptomatic left ureteral stone. She was treated with ureteroscopy and holmium laser lithotripsy of the stone. She still has nonobstructing stones up in the left kidney. She presents now for stent removal, ureteroscopy and treatment of her other remaining stones. She has some stent discomfort but no fever or chills Review of Systems Narrative: No fevers or chills No vision change or dysphasia No diabetes or thyroid No shortness of breath, cough or hemoptysis No chest pain or palpitations No nausea, vomiting, hepatitis, ulcers, jaundice No seizures, strokes or peripheral neuropathy No bleeding disorders or anemia No gout or arthralgia PFSH All Active Problems (Updated 01/16/22 @ 06:19 by Elena Yap) Kidney stone (Chronic) Hematuria (Acute) Medical History (Updated 01/16/22 @ 06:19 by Elena Yap) Kidney stone Surgical History (Updated 01/16/22 @ 06:20 by Elena Yap) H/O lithotripsy History of adenoidectomy Hx of wisdom tooth extraction Social History Smoking/Tobacco Use Status: Never Smoking risk assessment performed?: Yes Alcohol Intake: current Alcohol Intake frequency: a few times a week Alcohol type: beer and hard liquor Drug use: Occasionally Substance use type: marijuana Details: pt states she smokes it, close to a week ago Do you feel safe at home: Yes Do you feel safe in your relationship?: Yes Meds Allergies and Home Medications Allergies Allergy/AdvReac Type Severity Reaction Status Date / Time sulfamethoxazole Allergy Severe Hives Verified 01/13/22 13:44 [From ] trimethoprim [From ] Allergy Severe Hives Verified 01/13/22 13:44 Latex, Natural Rubber Allergy Intermediate Swelling/Ed Verified 01/13/22 13:44 alonso Home Medications Medication Instructions Recorded Confirmed Type norethindrone (contraceptive) 0.35 1 tab PO HS 01/04/22 01/16/22 History mg tablet Exam Const General: cooperative and comfortable Neck Neck: supple Resp Effort & Inspection: normal respiratory effort Auscultation: clear to auscultation bilaterally Cardio Rate: regular rate Rhythm: regular rhythm GI Inspection: normal to inspection Neuro General: patient alert, patient awake and patient oriented x3 Results Last Vital Signs Temp 36.6 C 01/16/22 06:15 Pulse 78 01/16/22 06:15 Resp 18 01/16/22 06:15 BP 124/67 01/16/22 06:15 Pulse Ox 97 01/16/22 06:15
[2022-01-16] MEDS: ceFAZolin 2 GM/50 ML BAG IVPB (07:36)
[2022-01-16] MEDS: Lidocaine 2% Jelly 6 ML SYR (08:09)
--- NOTE | 2022-01-16 08:46 | W.PM.DSUDISC ---
Date of service: 01/16/22 Time of Service: 08:46 Discharge Plan Disposition Patient Disposition: HOME Condition: Good Discharge Details Attending Provider: Craig Haley Primary Care Provider: None,None Home Meds and New Rx's Prescriptions: No Action norethindrone (contraceptive) 0.35 mg tablet 1 tab PO HS Label Comments: TAKE 1 TABLET BY MOUTH EVERY DAY Discharge Instructions Additional Instructions: no need to strain urine foolowup for stent removal 3 to 7 days (tell my office there is string on pt's stent) followup appt @ 6 weeks with renal US Activity:: Activity as Tolerated Shower/Bathe:: 24 hours Diet:: As Tolerated Discharge Orders Discharge Orders: Discharge Order (Routine); Ordered 01/16/22 Ordered By: Craig Haley
--- NOTE | 2022-01-16 08:53 | ROE_ITS ---
Date of service: 01/16/22 Time of Service: 08:54 Operative Note Operative Note DATE OF PROCEDURE: 01/16/22 PRE-OP DIAGNOSIS: Right renal stone POST-OP DIAGNOSIS: same PROCEDURE: Cystoscopy, remove right ureteral stent, right retrograde pyelogram, right ureteroscopy with holmium laser lithotripsy, extraction of stone fragments, insert right ureteral stent SURGEON: Craig Haley ANESTHESIA TYPE: Local By Surgeon and General:No Airway Refer to Anesthesia Record ESTIMATED BLOOD LOSS: 10 PATHOLOGY: other (stones for chemical analysis) COMPLICATIONS: None Patient was transported to: PACU Implants: 4.8 Liberian by 22 to 30 cm ureteral stent (with string attached) Indications: Is a 31-year-old woman who has a history of kidney stones that initially presented during . After her delivery, she again had an episode of right flank pain and was found to have a ureteral stone that was causing obstruction. She also had a nonobstructing lower pole kidney stone on the right. She had undergone ureteroscopy and treatment of her right ureteral stone. The stent was left in place. She presents now for stent removal and flexible ureteroscopy to address her lower pole stone. Findings: large right lower pole stone Procedure Description: Was brought to the operating room on 01/16/2022. After successful induction of general anesthesia, she was placed in the dorsal lithotomy position. Her genitalia was prepped and draped. 2% Xylocaine jelly was instilled into the urethra to act as a local anesthetic. A 22 Liberian rigid cystoscope was passed through the urethra into the bladder. The bladder was inspected with a 30 degree lens. The right ureteral stent was visualized as it protruded from the right ureteral orifice. The stent was grasped and alligator forceps and brought to the level of the urethral meatus. A Glidewire was advanced through the lumen of the stent and the stent was removed leaving the wire in place. A dual-lumen catheter was advanced over the wire and the catheter was positioned with the proximal end in the ureter. A retrograde pyelogram was obtained by injecting Omnipaque through the second lumen of the dual-lumen catheter under fluoroscopic guidance. This allowed us to outline the collecting system. Second wire was then positioned through the dual-lumen catheter and the catheter was removed. A ureteral access sheath was advanced over one of the wires. We chose the second wire as our safety wire. The flexible ureteroscope was then advanced through the lumen of the access sheath. The scope was advanced up to the kidney and the lower pole calyces were inspected. A large stone was seen in the lower pole calyx. The stone was grasped in a 0 tip stone basket and brought up to the level of the renal pelvis. We then released the stone from the basket and removed the basket. We treated the stone with a 272 ?m holmium laser fiber. We fragmented the stone with a power setting of 800 and a rate of 8. We then grasped each of the stone fragments and remove them with a 0 tip stone basket. Each of the stone fragments was sent to pathology for analysis. Once all large stone burden was removed, we removed the access sheath. I placed a 4.8 Liberian variable length stent over the safety wire. The proximal end of the stent was seen in the renal pelvis and the distal and was within the bladder. The safety string was left in place and brought through the patient's urethral meatus. The end of the safety string was tucked into the patient's vaginal cavity. The patient tolerated this procedure well with no complications. She was taken to the recovery room in stable condition.
[2022-01-16] MEDS: Ketorolac 15 MG/ML VIAL IVP (09:15)
--- NOTE | 2022-01-16 09:47 | W.ANESPOSTOP ---
Postoperative Evaluation Date, Time and Location Date Performed: 01/16/22 Time Performed: 09:47 Patient Location: PACU Vital Signs Most Recent Imported Vital Signs: Most Recent Vital Signs Temp Pulse Resp BP Pulse Ox 36.4 C L 71 15 118/63 98 01/16/22 09:35 01/16/22 09:35 01/16/22 09:35 01/16/22 09:35 01/16/22 09:35 Pain Score Most Recent Pain Score: Most Recent Pain Score Pain Level 0 01/16/22 09:35 Assessment Mental Status: Awake (Alert & Oriented to Patient Baseline) Airway and Respiratory Function: Patent airway with normal (patient baseline) respiratory exam Cardiovascular Function: Hemodynamically Stable Hydration Status: Adequately Hydrated Nausea & Vomiting: No Nausea or Vomiting Pain: Pt. Denies Any Pain Peripheral Nerve Block: Patient did not receive a nerve block
[2022-01-23 15:33] LABS: Source: Right Kidney
== END 2022-01-16 10:50 | disposition home or self-care (01) ==
PROVIDERS: Visit Provider Urology
PROC: (CPT 52356; principal; 2022-01-16 07:30)
DX: N20.0 Calculus of kidney (principal)
CPT/HCPCS: 52356; 81025; 74420; 82365; J0690; J1100; J1885; J2250; J2405; J2704

== ENCOUNTER → 2022-02-24 00:25 | Outpatient (CLI) | payer MEDICAID, SELFPAY ==
--- NOTE | 2022-02-24 07:30 | DI.US_ITS ---
Exam(s) US RENAL EXAM: US RENAL CLINICAL HISTORY: ? HYDRONEPHROSIS AFTER URETEROSCOPY, CALCULUS OF KIDNEY,N20.0. TECHNIQUE: Jerez scale, color and spectral Doppler were used. COMPARISON: CT CT RENAL COLIC WO from 01/03/2022 FINDINGS: Renal size in cm: Right: 11 left: 11 Echogenicity: Normal Hydronephrosis: No Cyst or mass: No Nephrolithiasis: Right: None visible. Left: 7 millimeter stone lower pole. Questionable echogenic f ocus upper pole left kidney. No stone was seen in this location on the prior CT in this may be artif actual. Bladder: Empty. Not evaluated. IMPRESSION: Left nephrolithiasis. No evidence of hydronephrosis. DATA REPOSITORY:
== END ==
PROVIDERS: Visit Provider Urology
DX: N20.0 Calculus of kidney (principal)
CPT/HCPCS: 76770

== ENCOUNTER 2022-03-14 10:23 | Outpatient (REF) | payer MEDICAID, SELFPAY | END 2022-03-14 10:24 | disposition home or self-care (01) | LOC: LBN 10:23 | PROVIDERS: Visit Provider Nurse Practitioner Family | DX: L98.9 Disorder of the skin and subcutaneous tissue, unspecified (principal) | CPT/HCPCS: 87077; 87070; 87205 ==

== ENCOUNTER 2022-07-29 09:20 | Emergency (ER) | payer MEDICAID, SELFPAY ==
[2022-07-29 09:23] VITALS: BP 115/62; PULSE 83; RESP 16; TEMP 37.1; O2SAT 97
--- NOTE | 2022-07-29 09:31 | W.ED.GENAD ---
Discharge Plan Disposition Patient Disposition: Home Condition: Stable Discharge Details Clinical Impression: Skin pustule, Chronic dermatitis of feet Primary Care Provider: None,None ED Provider: Leticia Montanez Home Meds and New Rx's Prescriptions: Continued cephalexin 500 mg capsule 500 mg PO BID Patient Comments: TAKE 1 CAPSULE BY MOUTH TWICE DAILY FOR 10 DAYS Rx Instructions: for 10 days, started 07/28/22. betamethasone, augmented 0.05 % ointment 1 applic TOPICAL BID Discharge Instructions Instructions: Contact Dermatitis (ED), Eczema (ED), Abscess (ED), Blister (ED) Additional Instructions: Keep your feet clean and dry. Try to elevate your feet as much as possible to help with swelling and pain. Keep wound clean and dry. Cover wound with bandage if risk of contamination. Otherwise you can keep the wound open to air if resting at home to allow edges to dry and heal. Continue your topical betamethasone and oral antibiotic cephalexin as directed until finished. You have been placed on care management list to arrange for a follow-up appointment with a primary care doctor to establish care and for reevaluation. Follow-up with your scheduled appointment with dermatology next month. Return immediately to the emergency department if you develop any worsening or new concerning symptoms such as fever, worsening pain, redness or swelling. Stand Alone Forms: Work Release Discharge Data Discharge Date/Time-TO BE ENTERED AT DEPARTURE: 07/29/22 12:12 Discharge Physician: Leticia Montanez Medical Decision Making 0915 -- 32-year-old female with a history of chronic pruritic and tender rash to her hands and feet for the past 10 years, seen by multiple providers including a PCP, the ED and dermatology for which she is currently being followed at [facility] dermatology with a biopsy pending presents for a separate area of increased pain and swelling noted to her left lateral foot. Patient appears otherwise comfortable and nontoxic. She is afebrile. There is a 3 x 5 mm pustule to her left lateral foot just below her lateral malleolus. There does appear to be a mild amount of surrounding cellulitis. Patient has an allergy to sulfa. Discussed with patient that it would likely would be beneficial to puncture the area to drain the pus and continue with her cephalexin. Do not see an indication for labs or imaging at this time. We will attempt to contact [facility] dermatology if they are recommending any additional or changing antibiotics. Patient is breast-feeding and is allergic to sulfa, so would potentially need clindamycin which may cause patient and infant diarrhea. 1130 --Case discussed with [facility] dermatology Dr. Lerner --agrees with plan for attempt at drainage. Discussed that mainly only serous fluid with a tiny amount of purulent fluid was expressed. She had recommended a wound culture if possible to obtain otherwise can continue on the cephalexin and follow-up as scheduled. Wound culture was obtained and sent. Skin markers placed. Patient does not have a PCP. We will place patient on care management list to establish care with a primary care doctor and for reevaluation in the next week. Patient advised to keep the left lateral foot clean and dry. Advised to elevate her foot as much as possible. Usual and customary return precautions given prior to discharge. Medical Records Medical records reviewed: Yes I reviewed the patient's medical records. HPI General Mode of arrival: ambulatory. Date/Time Provider Initiated Documentation: 07/29/22 09:23. Limitations to Documentation: no limitations. Information obtained by: patient. HPI Narrative: Patient is a 32-year-old female with a history of kidney stones with lithotripsy with chronic pruritic and at times tender rash to both feet and hands for the past 10 years. Patient has seen multiple providers including a PCP, the ED and dermatology for this in the past, most recently 3 days ago and had a biopsy by dermatology at [facility] at that time. Patient states she has been treated with topical steroids and antifungals and antibiotics in the past. She reports that with all 3 of her pregnancies the rash had resolved and then returned after giving a few months later. Patient states the incising machine operator at [facility] reported 3 days ago that her rash is not fungal and was concerned about a secondary skin infection and was placed on cephalexin and betamethasone topical. She reports that she had been also told previously by a provider that she has polycystic psoriasis. She states over the past 10 years she has been told that she has possibly eczema or psoriasis. She has never been given a formal diagnosis. She has not taken any injections or other immunomodulators for this. She reports she has just started the cephalexin and is taking it as prescribed. She reports she is here today as she noted that an area to her left lateral heel has become larger and more painful and this is why she presented to the ED. She has not taken any Motrin or Tylenol. She denies any known and reports she is currently on her menses and her has a history of a vasectomy. She denies any known fever, new injury, new soaps, lotions, detergents. Related Data Home Medications Medication Instructions Recorded Confirmed betamethasone, augmented 0.05 % 1 applic topical BID 07/29/22 07/29/22 topical ointment cephalexin 500 mg capsule 500 mg PO BID 07/29/22 07/29/22 Allergies Allergy/AdvReac Type Severity Reaction Status Date / Time sulfamethoxazole Allergy Severe Hives Verified 07/29/22 09:30 [From ] trimethoprim [From ] Allergy Severe Hives Verified 07/29/22 09:30 Latex, Natural Rubber Allergy Intermediate Swelling/Ed Verified 07/29/22 09:30 alonso General Stated Complaint: Cellulitis LAURA: 3 Review of Systems All systems reviewed & are unremarkable except as noted in HPI and below Constitutional Constitutional: Reports as per HPI, Denies chills and Denies fever(s) Eyes Eyes: Denies blurry vision ENT Ears, Nose, Mouth, and Throat: Denies dizziness, Denies sore throat and Denies throat swelling Cardiovascular Cardiovascular: Denies chest pain and Denies dyspnea Respiratory Respiratory: Denies cough and Denies dyspnea Gastrointestinal Gastrointestinal: Denies abdominal pain, Denies diarrhea and Denies vomiting Genitourinary Genitourinary: Denies hematuria and Denies dysuria Musculoskeletal Musculoskeletal: Denies back pain and Denies numbness Integumentary/Breasts Skin/Breast: Denies lesions and Denies rash Comments: Chronic hand and foot rash, area to left foot now more swollen and painful. Neurologic Neurologic: Denies dizziness, Denies localized weakness and Denies numbness Allergic/Immunologic Allergic/Immunologic: Denies throat swelling PFSH All Active Problems (Updated 07/29/22 @ 11:35 by Leticia Montanez DO) Skin pustule (Acute) Chronic dermatitis of feet (Acute) Kidney stone (Chronic) Medical History (Updated 07/29/22 @ 11:35 by Leticia Montanez DO) Kidney stone Surgical History (Updated 01/16/22 @ 06:20 by Elena Yap) H/O lithotripsy History of adenoidectomy Hx of wisdom tooth extraction Social History Smoking/Tobacco Use Status: Never Smoking risk assessment performed?: Yes Alcohol Intake: current Alcohol Intake frequency: a few times a week Alcohol type: beer and hard liquor Drug use: Occasionally Substance use type: marijuana Details: pt states she smokes it, close to a week ago Do you feel safe at home: Yes Do you feel safe in your relationship?: Yes Exam Const General: cooperative, healthy appearing and no acute distress Orientation: alert, awake and oriented x3 HENMT Head: normal to inspection Mouth: oral mucosae normal Eyes General: appearance normal, both eyes and all related structures Neck Neck: normal visual inspection Resp Effort & Inspection: normal respiratory effort and able to speak in complete sentences Cardio Rate: regular rate Skin General skin exam: no rashes or lesions noted Neuro General: patient alert, patient awake and patient oriented x3 Motor: muscle tone normal throughout Extrem Ankle/foot/toe images: 1. 3 x 5 mm pustule noted to the left lateral foot just below the lateral malleolus. There is a 2 to 3 mm area of circular erythema surrounding this pustule. This area is tender to palpation. There is no obvious crepitus. There is also an area of more faint erythema spreading from this location superiorly. There is no obvious streaking or lymphangitis. There is no drainage or bleeding. 2. Scaling, crusts, erosions noted to dorsal and volar toes. There is no drainage or bleeding. There is mild to moderate edema. 3. Scaling crusts and erosions noted to dorsal and volar first and fifth toes, remainder of toes without significant rash. Other: There is also scaling and erosions noted to the proximal volar and dorsal right hand worse bilaterally but this does not appear as significant as the left foot and no evidence of cellulitis, abscess, drainage or bleeding. Psych Appearance: grossly normal Affect: normal affect Course Vital Signs Vital signs: Vital Signs Temperature 98.7 F 07/29/22 09:23 Pulse 83 07/29/22 09:23 Respiratory Rate 16 07/29/22 09:23 Blood Pressure 115/62 07/29/22 09:23 Pulse Oximetry 97 07/29/22 09:23 Temperature 98.7 F 07/29/22 09:23 Temperature Source Oral 07/29/22 09:23 Pulse 83 05/06/23 09:23 Respiratory Rate 16 07/29/22 09:23 Respiratory Effort Normal, Non-Labored 07/29/22 09:28 Blood Pressure 115/62 07/29/22 09:23 Blood Pressure Position Sitting 07/29/22 09:23 Pulse Oximetry 97 07/29/22 09:23 Oxygen Delivery Method Room Air 07/29/22 09:23 Oxygen Flow Rate 0 07/29/22 09:23 Pain Level 5 07/29/22 09:23 Procedures Abscess I/D Site: Foot Side (if applicable): Left Technique: Other (18g) Amount of fluid expressed (mL): 1 (mostly serous, some purulence) Irrigation: Yes Packing used?: None PAWSS Have you Been Recently Intoxicated or Drunk Within the Last 30 days?: Yes Have you Ever Experienced Previous Episodes of Alcohol Withdrawal?: No Have you ever Experienced Withdrawal Seizures?: No Have you ever Experienced Delirium Tremens(DT)s?: No Have you ever undergone Alcohol Rehabilitation Treatment (i.e, inpt ot outpatient treatment programs)?: No Have you ever Experienced Blackouts?: No Have you ever Combined Alcohol with other Downers within the last 90 days?: No Have you ever Combined Alcohol with any other Substance of Abuse during the last 90 days?: No Positive Blood Alcohol level on Presentation? [PCS.BAL]: No Evidence of Increased Autonomic Activity (i.e. HR>120, tremor, sweating, agitation, nausea)?: No Result: 1
[2022-07-29] MEDS: Acetaminophen 500 MG TAB 1000 MG PO (10:21)
[2022-07-29] MEDS: Ibuprofen 600 MG TAB PO (10:21)
--- NOTE | 2022-07-29 18:48 | NUR.NOTE ---
Referral per Dr. Montanez for foot abscess in 1-2 weeks to establish care with a PCP. Put the referral on care management's list for f/u assistance.Nursing Note:
--- NOTE | 2022-08-01 09:41 | CMACTNOTE_ITS ---
Date of service: 08/01/22 Time of Service: 09:41 Care Management Activity Note Activity Note Text Activity Note Text: Jorge Luis is seen in the ED for a foot abscess. At the request of ED provider, CM coordinates a referral to Ben Ryan MD, of [facility], [facility], to assist Jorge Luis in obtaining a follow up appointment and in establishing care with a PCP.
== END 2022-07-29 12:12 | disposition home or self-care (01) ==
PROVIDERS: Emergency Provider Physician Assistant
DX: L08.9 Local infection of the skin and subcutaneous tissue, unspecified (principal); L30.9 Dermatitis, unspecified; B95.61 Methicillin susceptible Staphylococcus aureus infection as the cause of diseases classified elsewhere
CPT/HCPCS: 10060; 81025; 87077; 87070; 87186; 87205

== ENCOUNTER 2022-07-30 10:04 | Emergency (ER) | payer MEDICAID, SELFPAY ==
[2022-07-30 10:07] VITALS: BP 119/67; PULSE 89; RESP 15; TEMP 37.1; O2SAT 97
--- NOTE | 2022-07-30 10:15 | DI.RAD_ITS ---
Exam(s) XR ANKLE LT COMPLETE EXAM: XR ANKLE LT COMPLETE CLINICAL HISTORY: skin lesion, ?osteo. TECHNIQUE: 2D digital imaging was performed. COMPARISON: No exams were available for comparison FINDINGS: 3 views No evidence of acute fracture or widening of the ankle mortise. Talar dome unremarkable. Os trigonu m noted. Base of the 5th meta tarsal is intact. No osseous tarsal coalition seen. IMPRESSION: No acute fracture evident. DATA REPOSITORY: RADIATION DOSE DELIVERED:
--- NOTE | 2022-07-30 10:22 | ED.GENADUL_ITS ---
Discharge Plan Disposition Patient Disposition: Home Condition: Stable Discharge Details Clinical Impression: Leg wound, left Primary Care Provider: None,None ED Provider: Michael Dickey Home Meds and New Rx's Prescriptions: New amoxicillin-pot clavulanate 875-125 mg tablet 1 tab PO BID Qty: 14 0RF Continued betamethasone, augmented 0.05 % ointment 1 applic TOPICAL BID Discontinued cephalexin 500 mg capsule 500 mg PO BID Patient Comments: TAKE 1 CAPSULE BY MOUTH TWICE DAILY FOR 10 DAYS Rx Instructions: for 10 days, started 07/28/22. Discharge Instructions Additional Instructions: Your ultrasound and xray did not show concerning findings at this time you have been referred to get set up with a primary care provider if you feel more ill, have severe worsening pain or fevers return to the emergency department Medical Decision Making 32 yo female with hx of chronic dermatitis of her feet and [place] [facility] [place] placed on cephalexin 3 days ago. She has a lesion on the left lateral ankle, was seen yesterday for it in the ED and provider attempted to drain it and only had serosanguinous fluid. She states she still has redness and discomfort so came here. She has no fevers or chills. She arrives stable ambulatory and appears well in no distress. She has a flat white 2cm circular lesion that appears to be an ulcer on the left lateral ankle with 3cm reddy rrounding erythema that is not warm to touch. On bedside u/s has no fluid collection or cobble stoning. I suspect this could be related to her dermatitis vs vasculitis, no findings to suggest abscess. Will obtain xray though suspicion for osteomyelitis is low xray unremarkable other then soft tissue swelling, pt stable. She is nursing so will hold on adding clindamycin or doxy as unlikely mrsa. Will change from cephalexin to augmentin. I did recommend prednisone as well but she declined as she states she had side effects in the past. She is on the f/u list to see a pcp, return precautions given Differential Diagnosis Differential Diagnosis: cellulitis, vasculitis, dermatitis Imaging Data Radiologic Study: Attestation: I personally reviewed and interpreted this imaging study as follows: Imaging: X-Ray My impression: no acute findings HPI General Mode of arrival: ambulatory . Date/Time Provider Initiated Documentation: 07/30/22 10:09 . Limitations to Documentation: no limitations . Information obtained by: patient . History of Present Illness 32 year old F presents to the emergency department with the chief complaint of left ankle/foot lesion, described as moderate, Patient started experiencing this day(s) (3) and it has been constant. No relieving factors improve symptom(s), No exacerbating factors reported . Patient notes no other symptoms.. Related Data Home Medications Medication Instructions Recorded Confirmed betamethasone, augmented 0.05 % 1 applic topical BID 07/29/22 07/30/22 topical ointment amoxicillin 875 mg-potassium 1 tab PO BID #14 tabs 07/30/22 clavulanate 125 mg tablet Previous Rx's Medication Instructions Recorded amoxicillin 875 mg-potassium 1 tab PO BID #14 tabs 07/30/22 clavulanate 125 mg tablet Allergies Allergy/AdvReac Type Severity Reaction Status Date / Time sulfamethoxazole Allergy Severe Hives Verified 07/30/22 10:13 [From ] trimethoprim [From ] Allergy Severe Hives Verified 07/30/22 10:13 Latex, Natural Rubber Allergy Intermediate Swelling/Ed Verified 07/30/22 10:13 alonso General Stated Complaint: Cellulitis LAURA: 4 Review of Systems All systems reviewed & are unremarkable except as noted in HPI and below Constitutional Constitutional: Denies chills, Denies fever(s) and Denies weakness Cardiovascular Cardiovascular: Denies chest pain and Denies dyspnea Respiratory Respiratory: Denies cough and Denies dyspnea Gastrointestinal Gastrointestinal: Denies abdominal pain, Denies nausea and Denies vomiting Musculoskeletal Musculoskeletal: Denies joint swelling Neurologic Neurologic: Denies weakness PFSH All Active Problems (Updated 07/30/22 @ 11:01 by Michael Dickey MD) Skin pustule (Acute) Chronic dermatitis of feet (Acute) Leg wound, left (Acute) Kidney stone (Chronic) Medical History (Updated 07/30/22 @ 11:01 by Michael Dickey MD) Kidney stone Surgical History (Updated 01/16/22 @ 06:20 by Elena Yap) H/O lithotripsy History of adenoidectomy Hx of wisdom tooth extraction Social History Smoking/Tobacco Use Status: Never Smoking risk assessment performed?: Yes Alcohol Intake: current Alcohol Intake frequency: a few times a week Alcohol type: beer and hard liquor Drug use: Occasionally Substance use type: marijuana Details: pt states she smokes it, close to a week ago Do you feel safe at home: Yes Do you feel safe in your relationship?: Yes Exam Const General: no acute distress Orientation: alert HENMT Head: normal to inspection Ears: external ears normal General nose exam: external nose normal Mouth: moist mucous membranes Eyes General: appearance normal, both eyes and all related structures Neck Neck: normal visual inspection Resp Effort & Inspection: normal respiratory effort and able to speak in complete sentences Cardio Rate: regular rate Neuro General: patient alert and patient oriented x3 Extrem General: full ROM and capillary refill normal Psych Mental Status: mental status grossly normal Course Vital Signs Vital signs: Vital Signs Temperature 37.1 C 07/30/22 10:07 Pulse 89 07/30/22 10:07 Respiratory Rate 15 07/30/22 10:07 Blood Pressure 119/67 07/30/22 10:07 Pulse Oximetry 97 07/30/22 10:07 Temperature 37.1 C 07/30/22 10:07 Temperature Source Tympanic 07/30/22 10:07 Pulse 89 07/30/22 10:07 Respiratory Rate 15 07/30/22 10:07 Respiratory Effort Normal 07/30/22 10:09 Blood Pressure 119/67 07/30/22 10:07 Blood Pressure Position Sitting 07/30/22 10:07 Pulse Oximetry 97 07/30/22 10:07 Oxygen Delivery Method Room Air 07/30/22 10:07 Oxygen Flow Rate 0 07/30/22 10:07 Pain Level 1 07/30/22 10:07
--- NOTE | 2022-07-30 10:58 | DI.VRAD_ITS ---
PROCEDURE INFORMATION: Exam: XR Left Ankle Exam date and time: 07/30/2022 10:32 AM Age: 32 years old Clinical indication: Other: Skin lesion, No history of trauma or recent surgery is provided. TECHNIQUE: Imaging protocol: Radiologic exam of the left ankle. 3image(s) are provided. Views: 3 or more views. COMPARISON: No relevant prior studies available. FINDINGS: Bones/joints: There is some posterior os trigonum demonstrated. Osseous alignment is maintained.No displaced fracture or dislocation is appreciated.No cortical irregularity or periosteal reaction is appreciated. No osseous erosion is appreciated. Soft tissues: No radiopaque foreign body or subcutaneous emphysema is appreciated. There is slight undulation of the skin laterally as well as slight suspected soft tissue swelling. Other findings: There is some penetration artifact. IMPRESSION: There is soft tissue swelling with lateral predominance. No underlying fracture or osseous erosion to suggest osseous inflammation is appreciated. Dictated and Authenticated by: Hector Lopez MD. Ordering:DIEGO Rodriguez MD
--- NOTE | 2022-08-01 11:46 | W.EDPROG ---
Date of service: 08/01/22 Time of Service: 11:46 Medical Decision Making Patient's wound culture returned final on my shift showing Staph aureus and strep pyogenes group A. Staph was sensitive to oxacillin. Patient was discharged on cephalexin. Given sensitivity to oxacillin I am not suspicious for MRSA so no indication to add on MRSA coverage. Patient has primary care and dermatology follow-up. Discharge Plan Disposition Patient Disposition: Home Condition: Stable Discharge Details Clinical Impression: Leg wound, left Primary Care Provider: None,None ED Provider: Michael Dickey [place] Meds and New Rx's Prescriptions: New amoxicillin-pot clavulanate 875-125 mg tablet 1 tab PO BID Qty: 14 0RF Continued betamethasone, augmented 0.05 % ointment 1 applic TOPICAL BID Discontinued cephalexin 500 mg capsule 500 mg PO BID Patient Comments: TAKE 1 CAPSULE BY MOUTH TWICE DAILY FOR 10 DAYS Rx Instructions: for 10 days, started 07/28/22. Discharge Instructions Additional Instructions: Your ultrasound and xray did not show concerning findings at this time you have been referred to get set up with a primary care provider if you feel more ill, have severe worsening pain or fevers return to the emergency department Discharge Data Discharge Date/Time-TO BE ENTERED AT DEPARTURE: 07/30/22 11:12
== END 2022-07-30 11:12 | disposition home or self-care (01) ==
PROVIDERS: Emergency Provider Emergency Medicine
DX: S91.302A Unspecified open wound, left foot, initial encounter (principal); B95.61 Methicillin susceptible Staphylococcus aureus infection as the cause of diseases classified elsewhere; X58.XXXA Exposure to other specified factors, initial encounter
CPT/HCPCS: 99284; 73610; 99283

== ENCOUNTER 2022-09-01 00:01 | Outpatient (CLI) | payer MEDICAID, SELFPAY ==
--- NOTE | 2022-09-01 07:45 | DI.US_ITS ---
Exam(s) US RENAL EXAM: US RENAL CLINICAL HISTORY: monitoring left renal calculi size/position,KIDNEY STONE,N20.0. TECHNIQUE: Jerez scale, color and spectral Doppler were used. COMPARISON: CT CT RENAL COLIC WO from 01/03/2022 US US RENAL from 02/24/2022 FINDINGS: Renal size in cm: Right: 11. Left: 11.7. Echogenicity: Normal. Hydronephrosis: No. Cyst or mass: No. Nephrolithiasis: There is a 1.2 cm echogenic focus in the lower pole of the left kidney. There is a 9 mm echogenic focus in the midpole of the right kidney. Other findings: None. Bladder:Normal. Ureteral jets: Right: Visualized and unremarkable. Left: Visualized and unremarkable. Prevoid vol:157 cc Postvoid vol:45 cc Renal color flow: Symmetric and within normal limits. IMPRESSION: Bilateral nephrolithiasis. No hydronephrosis. DATA REPOSITORY:
== END 2022-09-01 00:21 ==
LOC: DI 00:02
PROVIDERS: Visit Provider Nurse Practitioner Gerontology
DX: N20.0 Calculus of kidney (principal)
CPT/HCPCS: 76770

== ENCOUNTER → 2023-03-02 00:44 | Outpatient (CLI) | payer MEDICAID, SELFPAY ==
--- NOTE | 2023-03-02 08:30 | DI.US_ITS ---
Exam(s) US RENAL EXAM: US RENAL CLINICAL HISTORY: monitoring renal calculi, kidney stone, N20.0 TECHNIQUE: Ultrasound of both kidneys performed using standard protocol. COMPARISON: CT CT RENAL COLIC WO from 01/03/2022 US US RENAL from 09/01/2022 FINDINGS: RIGHT KIDNEY: Measures 11.5 cm in length. No cysts evident. Normal cortical thickness and corticomedullary differen tiation .No solid masses There is a 6 millimeter echogenic focus in the lower pole calyx of the right kidney consistent with n onobstructive calculus. Another smaller calculus is noted in the upper pole region. There is no hyd ronephrosis. LEFT KIDNEY: Measures 10.0 cm in length. No cysts evident. Normal cortical thickness and corticomedullary differe ntiaion. No solids masses. There is a 9 millimeter inferior pole level nonobstructive calculus. No hydronephrosis. URINARY BLADDER: Prevoid volume is 87 cc Postvoid volume is 0 cc No evidence of bladder mass nor diverticuli. Ureterovesical jets: Both identified and appear symmetrical IMPRESSION: 1. Bilateral nephrolithiasis. Findings are similar to findings on prior studies. 2. No hydronephrosis. DATA REPOSITORY:
== END ==
PROVIDERS: Visit Provider Nurse Practitioner Gerontology
DX: N20.0 Calculus of kidney (principal)
CPT/HCPCS: 76770

== ENCOUNTER 2023-03-17 06:59 | Emergency (ER) | payer MEDICAID, SELFPAY ==
[2023-03-17 07:04] VITALS: BP 131/65; PULSE 88; RESP 15; TEMP 36.6; O2SAT 99
[2023-03-17 07:10] VITALS: BP 131/65; PULSE 88; RESP 15; TEMP 36.6; O2SAT 99
[2023-03-17 07:14] LABS: Source Nasal/Nares
[2023-03-17] MEDS: Erythromycin Ophth Oint 3.5 GM TUBE OU (07:36)
--- NOTE | 2023-03-17 07:44 | ED.GENADUL_ITS ---
Discharge Plan Disposition Patient Disposition: Home Discharge Details Clinical Impression: Conjunctivitis Primary Care Provider: Unknown,Unknown ED Provider: Clif Olivo Home Meds and New Rx's Prescriptions: New erythromycin 5 mg/gram (0.5 %) ointment 0.5 inch ophthalmic (eye) QID Qty: 3.5 0RF Discharge Instructions Instructions: Erythromycin (Into the eye), Conjunctivitis (ED) Additional Instructions: Please contact your primary care physician to arrange follow-up. Return to the ER immediately for any worsening or new concerning symptoms. Medical Decision Making 32-year-old female here with conjunctivitis left greater than right. Consider viral versus bacterial versus allergic. Patient otherwise asymptomatic. [id number] COVID testing negative. Plan for erythromycin eye ointment which was provided to the patient. Usual and customary discharge instructions reviewed. HPI General Mode of arrival: ambulatory . Date/Time Provider Initiated Documentation: 03/17/23 07:05 . Limitations to Documentation: no limitations . Information obtained by: patient . HPI Narrative: 32-year-old female presents with chief complaint of eye inflammation. Patient notes yesterday she had some goop in her left eye that she asked her to help her removed. This morning she woke up with both eyes sealed shut. Left eye is red. Eyes were noted to be itchy earlier. No itchiness now. No pain. No visual changes. Patient does not wear contacts. Related Data Home Medications Medication Instructions Recorded Confirmed erythromycin 5 mg/gram (0.5 %) eye 0.5 inch ophthalmic (eye) QID #3.5 03/17/23 ointment grams Previous Rx's Medication Instructions Recorded erythromycin 5 mg/gram (0.5 %) eye 0.5 inch ophthalmic (eye) QID #3.5 03/17/23 ointment grams Allergies Allergy/AdvReac Type Severity Reaction Status Date / Time sulfamethoxazole Allergy Severe Hives Verified 03/17/23 07:08 [From ] trimethoprim [From ] Allergy Severe Hives Verified 03/17/23 07:08 Latex, Natural Rubber Allergy Intermediate Swelling/Ed Verified 03/17/23 07:08 alonso General Stated Complaint: EyeProblem LAURA: 4 Review of Systems Constitutional Constitutional: Denies fever(s) Eyes Eyes: Reports as per HPI Respiratory Respiratory: Denies cough PFSH All Active Problems Conjunctivitis (Acute) Leg wound, left (Acute) Kidney stone (Chronic) Medical History Kidney stone Surgical History H/O lithotripsy Hx of wisdom tooth extraction History of adenoidectomy Social History Smoking/Tobacco Use Status: Never Smoking risk assessment performed?: Yes Alcohol Intake: current Alcohol Intake frequency: a few times a week Alcohol type: beer and hard liquor Drug use: Occasionally Substance use type: marijuana Details: pt states she smokes it, close to a week ago Housing: house Do you feel safe at home: Yes Do you feel safe in your relationship?: Yes Exam Const General: no acute distress HENMT Face and sinus: normal facial exam, sinuses nontender, face symmetric and no erythema Mouth: moist mucous membranes Eyes Alignment and Position: alignment normal Periorbital: periorbital findings normal Conjunctivae: conjunctival abnormality right conjunctival injection localized (medial mild) and left conjunctival injection diffuse Sclera: normal sclerae Pupils: PERRL EOM: EOM intact bilaterally Resp Auscultation: clear to auscultation bilaterally, no rales, no rhonchi and no wheezes Cardio Rate: regular rate and not tachycardic Rhythm: regular rhythm Course Vital Signs Vital signs: Vital Signs Temperature 36.6 C 03/17/23 07:04 Pulse 88 03/17/23 07:04 Respiratory Rate 15 03/17/23 07:04 Blood Pressure 131/65 03/17/23 07:04 Pulse Oximetry 99 03/17/23 07:04 Temperature 36.6 C 03/17/23 07:10 Temperature Source Temporal Artery Scan 03/17/23 07:10 Pulse 88 03/17/23 07:10 Respiratory Rate 15 03/17/23 07:10 Respiratory Effort Normal 03/17/23 07:07 Blood Pressure 131/65 03/17/23 07:10 Blood Pressure Position Sitting 03/17/23 07:10 Pulse Oximetry 99 03/17/23 07:10 Oxygen Delivery Method Room Air 03/17/23 07:10 Oxygen Flow Rate 0 12/23/23 07:10 Pain Level 1 03/17/23 07:10 Lab/Test Results Lab/Test Results: Laboratory Tests Range/Units 03/17/23 07:13 COVID-19 Source Nasal/Nares PAWSS Have you Been Recently Intoxicated or Drunk Within the Last 30 days?: No Have you Ever Experienced Previous Episodes of Alcohol Withdrawal?: No Have you ever Experienced Withdrawal Seizures?: No Have you ever Experienced Delirium Tremens(DT)s?: No Have you ever undergone Alcohol Rehabilitation Treatment (i.e, inpt ot outpatient treatment programs)?: No Have you ever Experienced Blackouts?: No Have you ever Combined Alcohol with other Downers within the last 90 days?: No Have you ever Combined Alcohol with any other Substance of Abuse during the last 90 days?: No Result: 0
[2023-03-17 07:48] LABS: COVID-19 PCR Negative (Negative)
== END 2023-03-17 07:47 | disposition home or self-care (01) ==
PROVIDERS: Emergency Provider Student in an Organized Health Care Education/Training Program
DX: H10.9 Unspecified conjunctivitis (principal); Z11.52 Encounter for screening for COVID-19; Z91.040 Latex allergy status; Z88.8 Allergy status to other drugs, medicaments and biological substances; Z88.2 Allergy status to sulfonamides
CPT/HCPCS: 87426; 87635; 99283

== ENCOUNTER 2023-09-18 15:12 | Outpatient (REF) | payer OTHER, SELFPAY | END 2023-09-18 15:13 | disposition home or self-care (01) | LOC: NCHCN 15:12 | PROVIDERS: Visit Provider Family Medicine | DX: N39.0 Urinary tract infection, site not specified (principal) | CPT/HCPCS: 87086 ==

== ENCOUNTER 2023-12-17 16:39 | Outpatient (REF) | payer OTHER, SELFPAY ==
--- OUTSIDE RECORDS SUMMARY | 2023-12-17 16:40 | XMS_ITS | Encounter Summary ---
Author Organization [facility] [place] [address] Care Team Providers Care Plaster Caster Name Role Phone Sj Suazo MD Primary Care Provider [phone] Reason for Visit * Reason Onset Date Comments Prior Authorization 01/31/2023 ruxolitinib 1.5 % Cream Encounter Details Date Type Department Care Team (Late st Contact Info) Description 01/31/2023 [place] [address] Shila Roach MA Prior Authorization (ruxolitinib 1.5 % Cream ) Social History Tobacco Use Types Packs/Day Years Used Date Smoking Tobacco: Never Sex and Gender Information Value Date Recorded Sex Assigned at Not on file Gender Identity Not on file Sexual Orientation Not on file documented as of this encounter Miscellaneous Notes * Telephone Encounter - Shila Roach MA - 01/31/2023 1:29 PM ESTSummary: PA Denial ruxolitinib 1.5 % Cream Images from the original note were not included. Submitted Date: Submitted Date: 01/31/2023 PA Outcome: PA Denial [place] [address] DENIED: ruxolitinib 1.5 % Cream Case/Reference #: [id number] Additional Information from Insurance: * Telephone Encounter - Stacey Dean CMA - 01/31/2023 12:48 PM EST Images from the original note were not included. * Telephone Encounter - Shila Roach MA - 01/31/2023 10:30 AM ESTSummary: PA Request ruxolitinib 1.5 % Cream PA Submitted Submitted Date: Date Submitted: 01/31/2023 Medication Prior Authorization Patient: Jorge Luis Subramanian Patient : 1990 Insurance Company: [place] [employer] Sent via: [facility] Voss: [id number] Physician: Jaxon De La Fuente MD Medication Requested: ruxolitinib 1.5 % Cream Frequency/Sig: Apply topically two times daily to affected areas on hands and feet Disp: 60 g Refills: 3 Currently taking: NO If yes, how long: Diagnosis for this medication: Dermatitis [L30.9] Prior medications trialed in this patient: Medication: betamethasone valerate (VALISONE) 0.1 % Cream Approx Dates: 04/01/15 Outcome/Adverse Reactions: Inadequate response Medication: triamcinolone (KENALOG) 0.1 % Cream Approx Dates: 04/12/15 Outcome/Adverse Reactions: Inadequate response Medication: tacrolimus (Protopic) 0.1 % Ointment Approx Dates: 10/25/22 Outcome/Adverse Reactions: Inadequate response Medication: dupilumab (Dupixent Pen) 300 mg/2 mL Pen Injector Approx Dates: 10/25/22 Outcome/Adverse Reactions: inadequate response Medication: mupirocin (Bactroban) 2 % Ointment Approx Dates: 11/27/14 -present Outcome/Adverse Reactions: inadequate response alone Medication: clobetasol (TEMOVATE) 0.05 % Ointment Approx Dates: 02/05/15 -04/01/15 Outcome/Adverse Reactions: inadequate response Additional Notes:01/30/2023 Office Notes of Jaxon De La Fuente MD Dermatology History of Present Illness: Jorge Luis Subramanian is a 32 y.o. Patient returns to clinic today for an Eczema follow up.She reports improvement. She states she is using OTC cortes sally daily. She states she did get Cearve SA and did try it but it did not help. She states Rx Dupixent got denied and states the only areas of rash todayt are located on her toes. She reports a toe nail is falling off due to the rash. Last visit at Dermatology: 10/25/2022 Last visit with this provider: 10/25/2022 Assessment/Plan #. Favor Eczema- On the bilateral distal dorsal feet and toes, well-demarcated pink plaques with yellow white scale noted. Few vesicles noted on the soles - Significant impact on quality of life given location on hands and feet. Hand involvement limits patient's ability to perform activities of daily living during flares, especially with three childrenat home. Involvement of feet limits mobility and activity during flares - Patient has a long standing history of this rash. In the past treated with topical steroids and cyclosporin. Patient not sure how it responded on cyclosporine. - Patch testing in 2014 showed positives to colophonium and cobalt and equivocal reactions to Methyldibromo. Patient avoiding her allergens and Free and Clear products. Moisturizing daily. - ISIDRO testing of the skin scraping was negative for fungal elements at last visit. 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 - C/w refills Rx: augmented betamethasone BID to affected areas for 2 weeks under occlusion, 1 weekoff and repeat as needed. Will continue until Opzelura approval - Discussed plan with pharmacy team today. Will initiate PA - Re-recommend CeraVe SA Lotion - Given failure to respond to prolonged courses of topical steroids, protopic, and cyclosporine, aswell as recent denial of dupixent due to insufficient BSA, will plan to start Rx Opzelura cream; Apply topically twice daily to affected areas of hands and feet. #. Acute paronychia- bright red erythema and mild edema of left fifth toe - discussed etiology and treatment options recommend treating with topical antibiotic today - Recent improvement and lack of pain is reassuring - Rx mupirocin ointment BID for 10 days - Recommend returning to clinic if fails to resolve Other: N/A RTC: 3 months for Dermatitis follow up. []Note routed to paralegal secretary []Recall placed in scheduling system [x]Appointment scheduled at checkout Scribe attestation: Caron Cronin CMA has performed the documentation for this encounter in the presence of and acting as a scribe for Jaxon De La Fuente MD. I performed the above scribed service and agree with the accuracy of the documentation in this encounter. Reviewed and signed by: Jaxon De La Fuente MD Dermatology [facility] Patient seen and evaluated with staff dairy powder mixer operator: Almas Jane MD Dermatology [facility] documented in this encounter Plan of Treatment Not on file documented as of this encounter Visit Diagnoses Not on filedocumented in this encounter Care Teams Plaster Caster Relationship Specialty Start Date End Date Sj Suazo MD [address] [facility] [facility] [address] [place] [address] PCP - General Obstetrics and Gynecology 04/19/22 documented as of this encounter
--- OUTSIDE RECORDS SUMMARY | 2023-12-17 16:40 | XMS_ITS | Encounter Summary ---
[place] [address] Care Team Providers Care Brickmason Apprentice Name Role Phone Sj Suazo MD Primary Care Provider [phone] Encounter Details Date Type Department Care Team (Latest Contact Info) Description 10/25/2022 Travel Social History Tobacco Use Types Packs/Day Years Used Date Smoking Tobacco: Never Sex and Gender Information Value Date Recorded Sex Assigned at Not on file Gender Identity Not on file Sexual Orientation Not on file documented as of this encounter Plan of Treatment Not on file documented as of this encounter Visit Diagnoses Not on filedocumented in this encounter Care Teams Brickmason Apprentice Relationship Specialty Start Date End Date Sj Suazo MD [address] [place] [address] PCP - General Obstetrics and Gynecology 04/19/22 documented as of this encounter
--- OUTSIDE RECORDS SUMMARY | 2023-12-17 16:40 | XMS_ITS | Encounter Summary ---
[place] [address] Care Team Providers Care Medical Insurance Claims Specialist Name Role Phone Sj Suazo MD Primary Care Provider Reason for Visit * Reason Comments Prior Authorization Dupixent 300mg/2ml s opn Encounter Details Date Type Department Care Team (Late st Contact Info) Description 10/27/2022 Specialty [place] [address] Maribel Justin, IRONWORKER FOREMAN Social History Tobacco Use Types Packs/Day Years Used Date Smoking Tobacco: Never Sex and Gender Information Value Date Recorded Sex Assigned at Not on file Gender Identity Not on file Sexual Orientation Not on file documented as of this encounter Progress Notes * Maribel Justin - 10/27/2022 9:02 AM EDT [facility], Medication Prior Authorization Submission Patient: Jorge Luis Subramanian Patient : 1990 Patient Address: [address] [place] [address] (home) Medication Name: DUPIXENT 300 MG/2 ML SUBCUTANEOUS PEN INJECTOR Medication ID: [id number] Subscriber Insurance: [place] Subscriber Insurance Comment: Phone: Fax: Physician: MONIQUE LIZARRAGA Physician Comment: Sent Via: Fax Voss: Ref/Case/PA#: Medication Strength Frequency Requested: INJECT THE CONTENTS OF TWO PENS (600MG) UNDER THE SKIN ONCE INITIALLY, THEN INJECT THE CONTENTS OF ONE PEN (300MG) ONCE EVERY 14 DAYS THEREAFTER Qty/Day Supply: 07/07 New Start: New to Therapy Diagnosis & ICD-10 Code: Dermatitis L30.9 Patient Notified: Yes Submission Notes: None Maribel Justin 10/27/22 9:03 AM * Maribel Justin - 10/27/2022 9:02 AM EDT [facility], Prior Authorization Denial Medication Name: DUPIXENT 300 MG/2 ML SUBCUTANEOUS PEN INJECTOR Medication ID: [id number] Case/Reference # : [id number] Denial Summary: Needs at least 10% BSA. Needs at least 1 month trial of tacrolimus (filled 10/25 per fax) Patient Notified of Denial: No Additional Information from insurance carrier. Please see below: None For any questions relating to this denial please reach out directly to your section's specialty pharmacist, or the specialty pharmacy team at [facility] Maribel Justin 10/27/22 11:25 AM documented in this encounter Plan of Treatment Not on file documented as of this encounter Visit Diagnoses Not on filedocumented in this encounter Care Teams Medical Insurance Claims Specialist Relationship Specialty Start Date End Date Sj Suazo MD [address] [facility],[address] [place] [address] PCP - General Obstetrics and Gynecology 04/19/22 documented as of this encounter
--- OUTSIDE RECORDS SUMMARY | 2023-12-17 16:40 | XMS_ITS | Encounter Summary ---
Author Organization [facility] Address [facility] [place] [address] Care Team Providers Care Racetrack Steward Name Role Phone Sj Suazo MD Primary Care Provider Encounter Details Date Type Department Care Team (Late st Contact Info) Description 01/30/2023 11:00 AM EST Office Visit Dermatology at [facility] [address] [place] [address] Jaxon De La Fuente MD [facility] [address] [place] [address] Dermatitis; Paronychia of fifth toe Social History Tobacco Use Types Packs/Day Years Used Date Smoking Tobacco: Never Sex and Gender Information Value Date Recorded Sex Assigned at Not on file Gender Identity Not on file Sexual Orientation Not on file documented as of this encounter Progress Notes * Jaxon De La Fuente MD - 01/30/2023 11:00 AM EST Images from the original note were not included. DEPARTMENT OF DERMATOLOGY Medical Dermatology Clinic Provider: Jaxon De La Fuente MD Patient's preferred name Jorge Luis Preferred contact method for results [x]Phone []myD-H []Letter Detailed phone message OK? Yes Are there any other people with whom we may discuss your care? No Past Medical History Date, location, treatment Melanoma No Dysplastic nevi No SCC No BCC No AKs No UV Exposure & Protection No Other relevant past medical history 07/26/2022 - Left first toe, skin punch biopsy: Spongiotic dermatitis + Patch testing 2014 showed positives to colophonium and cobalt and equivocal reactions to Methyldibromo glutaronitrile/phenoxyethanol. Biopsy results biopsy May 2014 showed acute spongiotic dermatitis. Family History Details Melanoma NMSC Other relevant family history Social History Occupation: Hobbies: Other: Pre-Procedure Screening Details Allergy to lidocaine, epinephrine, Dermabond, chlorhexidine, or adhesives Bleeding disorder or blood thinners Implanted devices (Pacemaker, defibrillator, deep brain stimulator, cochlear implant) History of Present Illness: Jorge Luis Subramanian [...] 10/25/2022 Last visit with this provider: 10/25/2022 Medications: Reviewed in eD-H Allergies: Reviewed in eD-H Skin Examination: Focused skin examination of the feet was normal with the exception of the findings below. Assessment/Plan #. Favor Eczema- On the bilateral [...] for Dermatitis follow up. []Note routed to alumnae secretary []Recall placed in scheduling system [x]Appointment scheduled at checkout Scribe attestation: Caron Cronin [facility] has performed the documentation for this encounter in the presence of and acting as a scribe for Jaxon De La Fuente MD. I performed the above scribed service and agree with the accuracy of the documentation in this encounter. Reviewed and signed by: Jaxon De La Fuente MD Dermatology [facility] Patient seen and evaluated with staff rim roller operator: Osman Jane MD Dermatology [facility] * Osman Jane MD - 01/30/2023 11:00 AM EST I directly supervised Dr. De La Fuente in the care of this patient. I saw and evaluated this patient with Dr. De La Fuente. He presented the history and physical exam detailsto me, then we saw the patient together and I confirmed these findings. I agree with details as written. My physical examination confirms his findings. The assessment and plan were formulated in discussion with me at the time of visit and I agree withthem as documented. OSMAN JANE MD [facility]AD Staff Physician documented in this encounter Plan of Treatment Not on file documented as of this encounter Visit Diagnoses Diagnosis Dermatitis Contact dermatitis and other eczema, due to unspecified cause Paronychia of fifth toe documented in this encounter Care Teams Racetrack Steward Relationship Specialty Start Date End Date Sj Suazo MD [address] [facility] [address] [place] [address] PCP - General Obstetrics and Gynecology 04/19/22 documented as of this encounter
--- OUTSIDE RECORDS SUMMARY | 2023-12-17 16:40 | XMS_ITS | Encounter Summary ---
Author Organization [facility] Address [facility] [place] [address] Care Team Providers Care Cash Applications Associate Name Role Phone Sj Suazo MD Primary Care Provider Encounter Details Date Type Department Care Team (Late st Contact Info) Description 08/24/2022 9:20 AM EDT Office Visit Dermatology at [facility] [address] [place] [address] Gallito Heller MD [facility] [place] [address] Dermatitis Social History Tobacco Use Types Packs/Day Years Used Date Smoking Tobacco: Never Sex and Gender Information Value Date Recorded Sex Assigned at Not on file Gender Identity Not on file Sexual Orientation Not on file documented as of this encounter Progress Notes * Gallito Heller MD - 08/24/2022 9:20 AM EDT Images from the original note were not included. DEPARTMENT OF DERMATOLOGY Medical Dermatology Clinic Provider: Gallito Heller MD Patient's preferred name Rufusjaclyn Preferred contact method for results [x]?Phone []?myD-H []?Letter Detailed phone message OK? Yes Are there any other people with whom we may discuss your care? No ?? Past Medical History Date, location, treatment Melanoma [...] family history Social History Occupation: Hobbies: Other: ?? Pre-Procedure Questions Details Allergy to lidocaine, epinephrine, Dermabond, chlorhexidine, or adhesives Bleeding disorder or blood thinners Implanted devices (Pacemaker, defibrillator, deep brain stimulator, cochlear implant) History of Present Illness: Jorge Luis Subramanian is a 32 y.o. Patient returns to clinic today for 6 week dermatitis follow up. -patient returns to clinic for dermatitis follow up; states it is better but not resolved -she reports using topical steroid only once daily every other day at night; has not used Amlactin Rapid Relief Last visit at Dermatology: 07/26/2022 Last visit with this provider: 07/26/2022 Medications: Reviewed in eD-H Allergies: Reviewed in eD-H Skin Examination: Focused skin examination of the bilateral hands and feet was normal with the exception of the findings below. Assessment/Plan #. Favor Dyshydrotic eczema, Improving - On the plantar wrist and bilateral toes, well-demarcated pink plaques with yellow white scalp noted, better than last visit. Few vesicles noted on the palms and soles. (Figure 1) - Patient has a long standing history of this rash. In the past treated with topical steroids and cyclosporin. Patient not sure how it responded on cyclosporin. - Patch testing in 2014 showed positives [...] occlusion, 1 weekoff and repeat as needed. - Re-recommend CeraVe SA Lotion - Discussed Dupixant with patient; she would like to research and if symptoms are not resolved at next visit, then pursue that. Figure 1 Photo(s) taken and charted with patient's verbal consent. Other: ??? OTC skin products discussed RTC: 2 months for Eczema F/U []Note routed to board of education secretary []Recall placed in scheduling system [x]Appointment scheduled at checkout Scribe attestation: Jenna Augustin [facility] has performed the documentation for this encounter inthe presence of and acting as a scribe for Gallito Heller MD. I performed the above scribed service and agree with the accuracy of the documentation in this encounter. Reviewed and signed by: Gallito Heller MD Dermatology [facility] Patient seen and evaluated with staff obstetrics gynecology physician: Lucas Mosley MD Dermatology [facility] * Lucas Mosley MD - 08/24/2022 9:20 AM EDT I directly supervised the Dermatology resident during this office visit. The resident presented thehistory and physical exam to me. I then saw and examined this patient with the resident. We reviewed the history and pertinent details and I confirmed the physical findings. I agree with the details of the history and physical exam as documented in the resident's note. LUCAS MOSLEY MD Staff Physician documented in this encounter Plan of Treatment Not on file documented as of this encounter Visit Diagnoses Diagnosis Dermatitis Contact dermatitis and other eczema, due to unspecified cause documented in this encounter Care Teams Cash Applications Associate Relationship Specialty Start Date End Date Sj Suazo MD [address] [facility] [address] [place] [address] PCP - General Obstetrics and Gynecology 04/19/22 documented as of this encounter
--- OUTSIDE RECORDS SUMMARY | 2023-12-17 16:40 | XMS_ITS | Encounter Summary ---
Author Organization [facility] Address [facility] [place] [address] Care Team Providers Care Computer Language Coder Name Role Phone Sj Suazo MD Primary Care Provider [phone] Encounter Details Date Type Department Care Team (Late st Contact Info) Description 04/27/2023 10:00 AM EST Office Visit Dermatology at [facility] [address] [place] [address] Jaxon De La Fuente MD [facility] [place] [address] Eczema, unspecified type Social History Tobacco Use Types Packs/Day Years Used Date Smoking Tobacco: Never Sex and Gender Information Value Date Recorded Sex Assigned at Not on file Gender Identity Not on file Sexual Orientation Not on file documented as of this encounter Progress Notes * Jaxon De La Fuente MD - 04/27/2023 10:00 AM EST Images from the original note [...] to lidocaine, epinephrine, Dermabond, chlorhexidine, or adhesives No Bleeding disorder or blood thinners No Implanted devices (Pacemaker, defibrillator, deep brain stimulator, cochlear implant) No History of Present Illness: Jorge Luis Subramanian is a 33 y.o. Patient returns to clinic today for 3 month eczema follow up. Last visit at Dermatology: 01/30/2023 Last visit with this provider: 01/30/2023 Medications: Reviewed in eD-H Allergies: Reviewed in eD-H Skin Examination: Focused skin examination of the feet was normal with the exception of the findings below. Assessment/Plan #. Favor Eczema- Clear on exam today - Patient states that Opzelura cream was denied by insurance - Counseled patient on possible correlation with nickel and hand and foot rashes. Discussed nickel free diet, including using the Nickel Navigator application. - Continue Rx: augmented betamethasone BID to affected areas for 2 weeks under occlusion, 1 week off and repeat as needed. PMH: #. Favor Eczema- Clear on exam today. - Previous exam: on the bilateral distal dorsal feet and toes, well-demarcated pink plaques with yellow white scale noted. Few vesicles noted on the soles. Hands involved initially several years ago prior to her third - Significant impact on quality of life given location on hands and feet. Hand involvement limits patient's ability to perform activities of daily living during flares, especially with three childrenat home. Involvement of feet limits mobility and activity during flares. Failed prolonged courses of topical steroids, protopic, and cyclosporine. Insurance has previously denied dupixant and opzelura - Patient has a long standing history of this rash. In the past treated with topical steroids and cyclosporin. Patient not sure how it responded on cyclosporine. - Patch testing in 2014 showed positives to colophonium and cobalt and equivocal reactions to Methyldibromo. Patient avoiding her allergens and Free and Clear products. Moisturizing daily. 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 - Recommend CeraVe SA Lotion for itchiness - continue with PRN use of Rx: augmented betamethasone BID to affected areas for 2 weeks under occlusion, 1 week off and repeat as needed Other: N/A RTC: PRN []Note routed to transformer mechanic []Recall placed in scheduling system []Appointment scheduled at checkout Scribe attestation: Escobar Mills, RN has performed the documentation for this encounter in the presence of and acting as a scribe for Jaxon De La Fuente MD. I performed the above scribed service and agree with the accuracy of the documentation in this encounter. Reviewed and signed by: Jaxon De La Fuente MD Dermatology [facility] Staff family practice nurse practitioner: Alexander Hernadez MD Dermatology [facility] * Alexander Hernadez MD - 04/27/2023 10:00 AM EST I was the supervising physician working with the Dermatology resident, Jaxon De La Fuente MD, in the care of this Dermatology patient in person. For the purposes of billing, the resident provided the care. I have reviewed the encounter note details and level of service. ALEXANDER HERNADEZ MD Staff Pens And Pencils Repairer Department of Dermatology [facility] documented in this encounter Plan of Treatment Not on file documented as of this encounter Visit Diagnoses Diagnosis Eczema, unspecified type documented in this encounter Care Teams Computer Language Coder Relationship Specialty Start Date End Date Sj Suazo MD [address] [facility],[address] [address] PCP - General Obstetrics and Gynecology 04/19/22 documented as of this encounter
--- OUTSIDE RECORDS SUMMARY | 2023-12-17 16:40 | XMS_ITS | Encounter Summary ---
[place] [address] Care Team Providers Care Sand Hauler Name Role Phone Sj Suazo MD Primary Care Provider Reason for Visit * Reason Comments Patient Education Encounter Details Date Type Department Care Team (Late st Contact Info) Description 10/25/2022 Specialty [place] [address] Oscar Grigsby Rafael Social History Tobacco Use Types Packs/Day Years Used Date Smoking Tobacco: Never Sex and Gender Information Value Date Recorded Sex Assigned at Not on file Gender Identity Not on file Sexual Orientation Not on file documented as of this encounter Progress Notes * Oscar Grigsby RPH - 10/25/2022 2:13 PM EDT Specialty Pharmacy Initial Consultation; Oscar Grigsby RPH Comprehensive Medication Management (CMM) Jorge Luis Subramanian Diagnosis: Dermatitis Therapy Start Date: TBD - New Start Contact in person or via telephone: In person Ms. Jorge Luis Subramanian is a 32 y.o. (1990) female who was contacted in regard to specialty medication. Spoke with patient regarding Dupixent. A review of the medication therapy was performed. Is the patient willing to proceed with the Clinical Assessment? Yes Summary and Recommendations: A comprehensive review of Dupixent was discussed with the patient. Topic covered included: Review of patient's dose and indication Common side effects: common cold symptoms, injection site reaction, and eye irritation Warnings/precautions & contraindications: risk of serious infection was discussed and patient is aware to avoid all live vaccines. Patient instructed to reach out to their provider if they experience any change in vision. Storage: patient aware to store medication in the refrigerator and that the medication can be room temperature for up to 14 days Other topics discussed: drug mechanism of action, possible drug and/or food interactions, disposal,and anticipated time to effect Medication and allergy review completed Patient made aware of the prior authorization process and timeline and was provided with [facility] contact information if needed. General overview of self-injection process was provided and patient was encouraged to schedule an injection teaching appointment (in-person or telehealth) if they prefer to have first injection completed with medical oversight Clinic follow-up needed: yes - ongoing clinic follow up and monitoring. Injection teaching if requested Allergies and Drug intolerance: Allergies Allergen Reactions Latex Septra [Sulfamethoxazole-Trimethoprim] Problem List: Patient Active Problem List Diagnosis Code Allergic contact dermatitis L23.9 Special Dietary or Hydration Requirements: no Medication Reconciliation Discrepancies (compared to [facility] med list) -N/A Medication List: Current Outpatient Medications Medication Sig Note Dispense Refill tacrolimus (Protopic) 0.1 % Ointment Apply topically 2 times daily. 60 g 0 augmented betamethasone dipropionate (Diprolene-AF) 0.05 % Ointment Apply twice a day to affected areas for 2 weeks, take 1 week off and repeat as needed 100 g 3 triamcinolone (KENALOG) 0.1 % Cream Apply topically 2 times daily. 454 g 3 mupirocin (BACTROBAN) 2 % Ointment Apply to sutures with every dressing change twice a day 22 g 0 betamethasone valerate (VALISONE) 0.1 % Cream Apply topically 2 times daily. 90 g 3 cycloSPORINE (SANDIMMUNE) 100 mg Capsule 01/01/2015: Received from: External Pharmacy 0 halobetasol (ULTRAVATE) 0.05 % Ointment 01/01/2015: Received from: External Pharmacy 0 No current facility-administered medications for this visit. Most Recent Vitals: Ht Readings from Last 1 Encounters: No data found for Ht Wt Readings from Last 3 Encounters: No data found for Wt Temp Readings from Last 3 Encounters: No data found for Temp BP Readings from Last 3 Encounters: No data found for BP Pulse Readings from Last 3 Encounters: No data found for Pulse There is no height or weight on file to calculate BMI. Pertinent Lab values: No results found for: ALT, AST, GGT, ALKPHOS, BILITOT, BILIDIR, ALBUMIN, PROT No results found for: WBC, HGB, HCT, MCV, PLATELET No results found for: HA1C There is no immunization history on file for this patient. Assessment and Recommendations: Patient Counseling Patient informed of specialty services: Yes Patient accepted offer to recreation counselor: select all, adherence/missed doses, cost of medications/cost implications, doses and administration, possible drug/OTC drug and food interactions, possible adverse side effects and management, pharmacy contact information, lab monitoring/follow up, possible drug/Rx drug interactions, safe handling, storage, and disposal, therapeutic rationale Medication Management Summary Topics discussed: reviewed medication changes since last visit, medication safety precautions education provided, drug interaction education provided to patient, safe handling, storage, and disposal discussed, possible adverse effects and management discussed, lab monitoring and follow-up discussed, cost of medications and cost implications discussed, adherence and missed doses discussed, health goals discussed, monitoring medication discussed, preventative care discussed, recommendations to doctor discussed, reminder to refill or product picker medication discussed, self-monitoring discussed, start medication discussed, timing of medications discussed, vaccination discussed, referral needs discussed Treatment Outcomes 10/25/2022 1420 Disease progression: Stable Patient Overall Status: Stable Reviewed in detail with patient: Dose appropriateness based on recommended standard dosing Current medication list including OTC medications Medication and disease problems Allergies Comorbid conditions/ Problem List Past adverse events if any Special needs of the patient including physical and cognitive limitations Goals of therapy and management strategies Warnings, precautions, and contraindications Side effects Drug-drug and drug-food interactions Administration instructions including dose, frequency and method Handling, storage, and disposal Verifying expiration dates on products before use Rotating medication inventory to use oldest product first Relevant lab data Treatments impact on disease Dose appropriateness based on recommended standard dosing schedule, including any variations from FDA approved dosing Patient verbalizes understanding and is able to read-back instructions on self-administration/injection, proper storage, drug stability, importance of adherence and management strategies, side effect avoidance and mitigation strategies, and interruptions in therapy: Yes Patient is aware a licensed pharmacist is available 24 hours a day, 7 days a week to discuss medication-related questions or concerns: Yes Patient verbalizes understanding of the common side effect profile of their medication. The patient is able to call 911 or seek urgent care if signs/symptoms of allergy or harmful adverse reactions occur: Yes Additional care/services needed: No Additional equipment/supplies required: No Patient satisfied with care/services provided: Yes Specialty Assessment: Physical and Cognitive Assessment: Functional limitations identified: No Cognitive limitations identified: No Concern regarding orientation/memory: No Concern with reasoning/judgement: No Is patient a fall risk: No Social Assessment: Does patient have a primary rn urgent care: No Does patient have an emergency contact on file: Yes Does patient need referral to manager social services: No Does patient need referral to advocacy group: No Home Health Assessment: Is the patient in a safe home environment?: Yes Is the patient able to store their medication as directed?: Yes Does the patient have a support network at home?: Yes Reviewed potential home safety hazards with patient: Yes Economic Assessment: Patient is agreeable to medication copay: Other (see comments) (Comment: TBD - New Start) Welcome Packet and Rights and Responsibilities: Specialty Med Adherence Patient Demonstrates Understanding of Importance of Adherence: Yes Educational Information or Adherence Tools Provided: Yes Therapy Assessment: Current Medication Dosing/Route/Frequency: Dupixent 300mg/2mL Pens Inject the contents of two pens (600 mg) under the skin once initially, then inject the contents of one pen (300 mg) once every 14 days thereafter Appropriate Therapy: Yes Current Affected Areas: toes, feet, scalp Total BSA involved: unknown Recent Skin Exacerbations/Flaring: yes - significant impact on quality of life Recent Topical Corticosteroid Use: yes - augmented betamethasone Relapsing/Remitting Factors: no Diagnosis of Psoriatic Arthritis: No Patient's Problems/Needs: Additional treatment for eczema and ongoing clinic follow up Expected Outcome: Skin clearing and reduction of symptoms Treatment Outcome: Therapy initiated Patient's goals: Patient's specific desired goal: Skin clearing and reduction of symptoms Measured by: Patient reported s/sx and provider physical exam Time-frame to meet goal: 3-6 months On a scale of 1-10, what is the patient's overall confidence level with administering this medication? Not assessed Monitoring requirements for prescribed medication: Monitor for adverse effects, ocular side effects On a scale of 1-10 the patient rates their quality of life: Not assessed Care Plan Reviewed and Approved by both Pharmacist and Patient: Yes Interventions (if applicable): No N/A Pharmacist follow-up needed: Yes Delivery Method: Delivery Patient understands no changes to current drug regimen were made at the appointment and that [facility] is[facility] recommendations (summary located at top of note) for provider review and follow up. Oscar Grigsby RPH 10/25/22 2:21 PM documented in this encounter Plan of Treatment Not on file documented as of this encounter Visit Diagnoses Not on filedocumented in this encounter Care Teams Sand Hauler Relationship Specialty Start Date End Date Sj Suazo MD [address] [facility] [address] [place] [address] PCP - General Obstetrics and Gynecology 04/19/22 documented as of this encounter
--- OUTSIDE RECORDS SUMMARY | 2023-12-17 16:40 | XMS_ITS | Encounter Summary ---
Author Organization [facility] Address [facility] [place] [address] Care Team Providers Care Joint Cutter Name Role Phone Sj Suazo MD Primary Care Provider Encounter Details Date Type Department Care Team (Late st Contact Info) Description 10/25/2022 1:20 PM EDT Office Visit Dermatology at [facility] [address] [place] [address] Jaxon De La Fuente MD [facility] [place] [address] Dermatitis Social History Tobacco Use Types Packs/Day Years Used Date Smoking Tobacco: Never Sex and Gender Information Value Date Recorded Sex Assigned at Not on file Gender Identity Not on file Sexual Orientation Not on file documented as of this encounter Progress Notes * Jaxon De La Fuente MD - 10/25/2022 1:20 PM EDT Images from the original note were not included. DEPARTMENT OF DERMATOLOGY Medical Dermatology Clinic Provider: Jaxon De La Fuente MD Patient's preferred name Zuleima Preferred contact method for results [x]Phone []myD-H [...] y.o. Patient returns to clinic today for a rash follow up. Patient reports minimal improvement. Last visit at Dermatology: 08/24/2022 Last visit with this provider: 08/24/2022 Medications: Reviewed in eD-H Allergies: Reviewed in eD-H Skin Examination: Focused skin examination of the hands and feet was normal with the exception of the findings below. Assessment/Plan #. Favor Eczema- On the plantar wrist and bilateral toes, well-demarcated pink plaques with yellow white scalp noted. Few vesicles noted on the soles. (Figure 1) - Significant impact on quality of life [...] 1 weekoff and repeat as needed. - Given prolonged use of steroids will also trial Protopic for the next month, using medication twice per day. If this fails will proceed with Dupixant - Discussed plan with pharmacy team today. Will initiate PA - Re-recommend CeraVe SA Lotion Other: N/A RTC: 3 months for eczema f/u []Note routed to payroll secretary []Recall placed in scheduling system []Appointment scheduled at checkout Scribe attestation: Caron Cronin [facility] has performed the documentation for this encounter in the presence of and acting as a scribe for Jaxon De La Fuente MD. I performed the above scribed service and agree with the accuracy of the documentation in this encounter. Reviewed and signed by: Jaxon De La Fuente MD Dermatology [facility] Patient seen and evaluated with staff power generation technician: Angelia Finch MD Dermatology [facility] * Angelia Finch MD - 10/25/2022 1:20 PM EDT I directly supervised the resident during this office visit. The resident physician presented the history and physical exam to me. I then saw and examined this patient with the resident. We reviewed the history and pertinent details and I confirmed the physical exam findings. I agree with the details of the history and physical exam as documented in the resident physician's note. Angelia Finch MD ([place]), FAAD Staff Physician [facility] [place] documented in this encounter Plan of Treatment Not on file documented as of this encounter Visit Diagnoses Diagnosis Dermatitis Contact dermatitis and other eczema, due to unspecified cause documented in this encounter Care Teams Joint Cutter Relationship Specialty Start Date End Date Sj Suazo MD [address] [facility] [address] [place] [address] PCP - General Obstetrics and Gynecology 04/19/22 documented as of this encounter
--- OUTSIDE RECORDS SUMMARY | 2023-12-17 16:40 | XMS_ITS | Encounter Summary ---
[place] [address] Care Team Providers Care Kiss Setter Hand Name Role Phone Sj Suazo MD Primary Care Provider Encounter Details Date Type Department Care Team (Latest Contact Info) Description 07/26/2022 Travel Social History Tobacco Use Types Packs/Day Years Used Date Smoking Tobacco: Never Sex and Gender Information Value Date Recorded Sex Assigned at Not on file Gender Identity Not on file Sexual Orientation Not on file documented as of this encounter Plan of Treatment Not on file documented as of this encounter Visit Diagnoses Not on filedocumented in this encounter Care Teams Kiss Setter Hand Relationship Specialty Start Date End Date Sj Suazo MD [address] [place] [address] PCP - General Obstetrics and Gynecology 04/19/22 documented as of this encounter
--- OUTSIDE RECORDS SUMMARY | 2023-12-17 16:40 | XMS_ITS | Encounter Summary ---
[place] [address] Care Team Providers Care Plasterer Apprentice Name Role Phone Sj Suazo MD Primary Care Provider Encounter Details Date Type Department Care Team (Latest Contact Info) Description 08/24/2022 Travel Social History Tobacco Use Types Packs/Day Years Used Date Smoking Tobacco: Never Sex and Gender Information Value Date Recorded Sex Assigned at Not on file Gender Identity Not on file Sexual Orientation Not on file documented as of this encounter Plan of Treatment Not on file documented as of this encounter Visit Diagnoses Not on filedocumented in this encounter Care Teams Plasterer Apprentice Relationship Specialty Start Date End Date Sj Suazo MD [address] [place] [address] PCP - General Obstetrics and Gynecology 04/19/22 documented as of this encounter
--- OUTSIDE RECORDS SUMMARY | 2023-12-17 16:40 | XMS_ITS | Clinical Summary ---
Author Organization [facility] Address [facility] [place] [address] Care Team Providers Care Brusher And Shearer Name Role Phone Sj Suazo MD Primary Care Provider Allergies Active Allergy Reactions Criticality Noted Date Comments Latex 02/05/2015 Sulfamethoxazole-Trimethoprim 2014 Medications Medication Sig Dispensed Refills Start Date End Date Status cycloSPORINE (SANDIMMUNE) 100 mg Capsule 0 12/03/2014 Active halobetasol (ULTRAVATE) 0.05 % Ointment 0 12/04/2014 Active betamethasone valerate (VALISONE) 0.1 % CreamIndications:[place]field titis Apply topically 2 times daily. 90 g 3 04/01/2015 Active triamcinolone (KENALOG) 0.1 % CreamIndications:Aller gic dermatitis due to other chemical product Apply topically 2 times daily. 454 g 3 04/12/2015 Active augmented betamethasone dipropionate (Diprolene-AF) 0.05 % Ointment Apply twice a day to affected areas for 2 weeks, take 1 week off and repeat as needed 100 g 3 08/24/2022 Active tacrolimus (Protopic) 0.1 % OintmentIndications:De rmatitis Apply topically 2 times daily. 60 g 10/25/2022 Active ruxolitinib 1.5 % CreamIndications:[place]field titis Apply topically two times daily to affected areas on hands and feet 60 g 3 01/30/2023 Active mupirocin (Bactroban) 2 % OintmentIndications:Pa ronychia of fifth toe Apply topically two times daily to left fifth toe for 10 days 30 g 01/30/2023 Active Active Problems Problem Noted Date Diagnosed Date Allergic contact dermatitis 12/03/2014 Social History Tobacco Use Types Packs/Day Years Used Date Smoking Tobacco: Never Sex and Gender Information Value Date Recorded Sex Assigned at Not on file Gender Identity Not on file Sexual Orientation Not on file Plan of Treatment Health Maintenance Due Date Last Done Comments HIV screen 2010 Hepatitis C Screening 2010 Hepatitis B vaccine (0-59 yrs) (1) 2011 Tdap adult (Retired) 2011 Tetanus vaccine (Retired) 2011 HPV test 2022 PAP Smear 2022 Covid-19 Vaccine ( - season) 2023 Influenza (Flu) vaccine (1 o f 1 - Influenza standard series) 11/25/2023 Care Teams Brusher And Shearer Relationship Specialty Start Date End Date Sj Suazo MD [address] [place], [place] [id number] PCP - General Obstetrics and Gynecology 04/19/22
--- OUTSIDE RECORDS SUMMARY | 2023-12-17 16:40 | XMS_ITS | Encounter Summary ---
Author Organization [place] [address] Care Team Providers Care Oncology Nurse Navigator Name Role Phone Sj Suazo MD Primary Care Provider Encounter Details Date Type Department Care Team (Late st Contact Info) Description 10/27/2022 [place] [id number] Yvonne Augustin CMA Social History Tobacco Use Types Packs/Day Years Used Date Smoking Tobacco: Never Sex and Gender Information Value Date Recorded Sex Assigned at Not on file Gender Identity Not on file Sexual Orientation Not on file documented as of this encounter Miscellaneous Notes * Telephone Encounter - Yvonne Augustin CMA - 10/27/2022 11:14 AM EDT Summary: PA received Dupixent Accessed patient record due to the following: [x] Received an approval letter via fax surveillance observer- duplicate request, not our department, we didn't submit the PA. [] Received a denial letter via fax surveillance observer- duplicate request, not our department, we didn't submitthe PA. [] Received immunizations from an outside facility- immunizations entered in the chart, and the immunization report will be indexed in chart. [] Received labs from an outside facility- labs entered into the chart, and the lab report will be indexed in the chart. [] Went through our STPs in [facility] to see if approval or denial was documented, or needs to be documented. [] Helping teammate with PA request- finding correct information in order to submit PA [] Received PA request-its a duplicate request, not a department we service [] Received additional information on a PA request-its a duplicate [] Received a PA request that our department does not handle- sent to correct department that handles the request [] Indexing medical records into the chart [] Received labs-duplicate [] Received prior authorization/approval/denial in onbase for patient with similar name and [] Received appeal decision, our department did not send appeal to the insurance, sent appeal letter to the correct department that handled the request, or additional information to an appeal that wedidn't submit. [] Duplicate appeal request/decision [] Received a refill request- our department doesn't handle these- sent to correct department. [] Received medical records, Patient not scheduled in a department we currently service, records have been indexed to the chart, or records have been transferred to the correct department que in fax surveillance observer [] Received medical records for a patient that is not a DH patient [] verified information received on document in external fax surveillance observer [] Non-DH documents [] inbasket message /waiting to hear back from the provider/provider pool documented in this encounter Plan of Treatment Not on file documented as of this encounter Visit Diagnoses Not on filedocumented in this encounter Care Teams Oncology Nurse Navigator Relationship Specialty Start Date End Date Sj Suazo MD [address] [facility],[place] [id number] PCP - General Obstetrics and Gynecology 04/19/22 documented as of this encounter
--- OUTSIDE RECORDS SUMMARY | 2023-12-17 16:40 | XMS_ITS | Encounter Summary ---
Author Organization [facility] Address [facility] [place] [address] Care Team Providers Care Import Specialist Name Role Phone Sj Suazo MD Primary Care Provider Encounter Details Date Type Department Care Team (Late st Contact Info) Description 07/29/2022 Notes Only Dermatology at [facility] [address] [place] [address] Airam Andrews MD [facility] [address] [address] Social History Tobacco Use Types Packs/Day Years Used Date Smoking Tobacco: Never Sex and Gender Information Value Date Recorded Sex Assigned at Not on file Gender Identity Not on file Sexual Orientation Not on file documented as of this encounter Progress Notes * Airam Andrews MD - 07/29/2022 11:26 AM EDT Can Striper Resident Note: - Received Transfer Center Call from Dr. Montanez at [facility] - Pt known to Dermatology, last seen 07/[address] 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 Has a f/u with Dr. Heller in August for review of biopsy and f/u - Agree with plan, will forward note to Dr. Heller documented in this encounter Plan of Treatment Not on file documented as of this encounter Visit Diagnoses Not on filedocumented in this encounter Care Teams Import Specialist Relationship Specialty Start Date End Date Sj Suazo MD [address] [place] [address] PCP - General Obstetrics and Gynecology 04/19/22 documented as of this encounter
--- OUTSIDE RECORDS SUMMARY | 2023-12-17 16:40 | XMS_ITS | Encounter Summary ---
[place] [address] Care Team Providers Care Nursing Faculty Name Role Phone Sj Suazo MD Primary Care Provider Reason for Visit * Reason Comments Specialty Pharmacy Review Dupixent Encounter Details Date Type Department Care Team (Late st Contact Info) Description 10/25/2022 Specialty [place] [address] Conrado Mcgraw CPHT Social History Tobacco Use Types Packs/Day Years Used Date Smoking Tobacco: Never Sex and Gender Information Value Date Recorded Sex Assigned at Not on file Gender Identity Not on file Sexual Orientation Not on file documented as of this encounter Progress Notes * Conrado Mcgraw CPHT - 10/25/2022 11:59 PM EDT The [facility] has completed a benefits investigation for Jorge Luis Subramanian to review their eligibility to fill at [facility]. Per patient's medication list they are prescribedDupixent and the medication is able to be filled at the [facility]. The prior authorization was denied by the insurance on 10/27/22. documented in this encounter Plan of Treatment Not on file documented as of this encounter Visit Diagnoses Not on filedocumented in this encounter Care Teams Nursing Faculty Relationship Specialty Start Date End Date Sj Suazo MD [address] [facility] [place] [address] PCP - General Obstetrics and Gynecology 04/19/22 documented as of this encounter
--- OUTSIDE RECORDS SUMMARY | 2023-12-17 16:40 | XMS_ITS | Encounter Summary ---
[place] [address] Care Team Providers Care Lokie Driver Name Role Phone Sj Suazo MD Primary Care Provider [phone] Encounter Details Date Type Department Care Team (Latest Contact Info) Description 04/27/2023 Travel Social History Tobacco Use Types Packs/Day Years Used Date Smoking Tobacco: Never Sex and Gender Information Value Date Recorded Sex Assigned at Not on file Gender Identity Not on file Sexual Orientation Not on file documented as of this encounter Plan of Treatment Not on file documented as of this encounter Visit Diagnoses Not on filedocumented in this encounter Care Teams Lokie Driver Relationship Specialty Start Date End Date Sj Suazo MD [address] [facility] [address] [place] [address] PCP - General Obstetrics and Gynecology 04/19/22 documented as of this encounter
--- OUTSIDE RECORDS SUMMARY | 2023-12-17 16:40 | XMS_ITS | Encounter Summary ---
Author Organization [facility] Address [facility] [place] [address] Care Team Providers Care Antiquer Name Role Phone Sj Suazo MD Primary Care Provider Encounter Details Date Type Department Care Team (Late st Contact Info) Description 10/25/2022 Refill Dermatology at [facility] [address] [place] [address] Jaxon De La Fuente MD [facility] [address] [place] [address] Social History Tobacco Use Types Packs/Day Years Used Date Smoking Tobacco: Never Sex and Gender Information Value Date Recorded Sex Assigned at Not on file Gender Identity Not on file Sexual Orientation Not on file documented as of this encounter Miscellaneous Notes * Addendum Note - Kimberly Delgado RPH - 02/13/2023 9:29 AM ESTAddended by: KIMBERLY DELGADO on: 02/13/2023 09:29 AM Modules accepted: Orders documented in this encounter Plan of Treatment Not on file documented as of this encounter Visit Diagnoses Not on filedocumented in this encounter Care Teams Antiquer Relationship Specialty Start Date End Date Sj Suazo MD [address] [facility],[address] [address] PCP - General Obstetrics and Gynecology 04/19/22 documented as of this encounter
--- OUTSIDE RECORDS SUMMARY | 2023-12-17 16:40 | XMS_ITS | Encounter Summary ---
[place] [address] Care Team Providers Care Outreach Professional Name Role Phone Sj Suazo MD Primary Care Provider [phone] Encounter Details Date Type Department Care Team (Latest Contact Info) Description 01/30/2023 Travel Social History Tobacco Use Types Packs/Day Years Used Date Smoking Tobacco: Never Sex and Gender Information Value Date Recorded Sex Assigned at Not on file Gender Identity Not on file Sexual Orientation Not on file documented as of this encounter Plan of Treatment Not on file documented as of this encounter Visit Diagnoses Not on filedocumented in this encounter Care Teams Outreach Professional Relationship Specialty Start Date End Date Sj Suazo MD [address] [facility] [address] [place] [address] PCP - General Obstetrics and Gynecology 04/19/22 documented as of this encounter
--- OUTSIDE RECORDS SUMMARY | 2023-12-17 16:40 | XMS_ITS | Encounter Summary ---
Author Organization [facility] [address] Care Team Providers Care Mold Loft Worker Name Role Phone Sj Suazo MD Primary Care Provider Reason for Visit * Reason Comments Specialty Pharmacy Review Encounter Details Date Type Department Care Team (Late st Contact Info) Description 01/30/2023 Specialty [place] [address] Lion Jurado, [facility] Social History Tobacco Use Types Packs/Day Years Used Date Smoking Tobacco: Never Sex and Gender Information Value Date Recorded Sex Assigned at Not on file Gender Identity Not on file Sexual Orientation Not on file documented as of this encounter Progress Notes * Lion Jurado - 01/30/2023 11:59 PM EST The [facility] has completed a benefits investigation for Jorge Luis Subramanian to review their eligibility to fill at [facility]. Per patient's medication list they are prescribedDUPIXENT 300 MG/2 ML and the medication is not able to be filled at the [facility]. Theprior authorization has been denied. documented in this encounter Plan of Treatment Not on file documented as of this encounter Visit Diagnoses Not on filedocumented in this encounter Care Teams Mold Loft Worker Relationship Specialty Start Date End Date Sj Suazo MD [address] [place] [address] PCP - General Obstetrics and Gynecology 04/19/22 documented as of this encounter
--- OUTSIDE RECORDS SUMMARY | 2023-12-17 16:41 | XMS_ITS | Encounter Summary ---
Author Organization [facility] Address [facility] [place] [address] Care Team Providers Care Bullet Swaging Machine Adjuster Name Role Phone Diamond Cerrato FOOD MIXER REPAIRER Primary Care Provider [phone] Reason for Visit * Reason Comments Patch Testing Encounter Details Date Type Department Care Team ([facility] Contact Info) Description 03/08/2015 11:30 AM EST Office Visit Dermatology at [facility] [address] [place] [address] Almas Jane MD [address] [facility] [place] [address] Encounter for allergy testing (Primary Dx) Social History Tobacco Use Types Packs/Day Years Used Date Smoking Tobacco: Never Sex and Gender Information Value Date Recorded Sex Assigned at Not on file Gender Identity Not on file Sexual Orientation Not on file documented as of this encounter Progress Notes * Octavio Chisholm LPN - 03/08/2015 11:09 AM EST Images from the original note were not included. Visit For: Patch Test History of Present Illness Jorge Luis Subramanian is a 24 y.o. female. History of eczematous dermatitis on the hands and feet here for NACDG patch testing. Here today with father. Antecedent History: Complains of a recurrent severely pruritic, burining, painful rash on the handsand feet for two years. Worse with heat, hot water. Cold is soothing. No known triggers. Currently finished cyclosporin in the last few days. Previously treated with halobetasol, prednisone, cyclosporine, apple cider vinegar, tea tree oil, lavender, eucalyptus. None have helped. Skin biopsy done April 2013 showed allergic contact dermatitis but no report available; done at [facility]. Patient has been patch tested twice, reports whole body hives after both times and unable to read results. Interval changes to Medications and Medical, Family and Social Histories (including alcohol and tobacco use) Since Last Visit 01-26-15: No significant interval history. Allergies Allergies Allergen Reactions ??? Latex ??? Septra [Sulfamethoxazole-Trimethoprim] Medications Reconciled as above. 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 Examination Pain 0/10. Mood is appropriate and congruent with effect Well developed, well-nourished in no apparent distress, alert and oriented to time, person, place and situation. Examination of the back significant for the following: - clear back Assessment and Plan Dermatitis Here for patch testing with FREDERIC, supplemental and shoe allergens Extensively Counseled: Patch testing's use for determining potential allergens the skin is in contact with that may be contributing to current dermatitis, limitations and benefits, reasons for testing for suspected and unsuspected allergens. Reviewed procedure, time course and application method. Explained typical potential allergic reactions as well as potential adverse reactions, including but not limited to common AEs such as itching/irritation/blistering from the tape as well as rare AEs, such as hives, shortness of breath or development of an allergy to something tested; headache, chest pain, joint aching, fever, or any other systemic symptoms are NOT associated with patch testing, andif pt develops any of these he should seek immediate medical care. Discussed potential for flare-upof patient's dermatitis on previously-affected skin during the testing which seems to occur more frequently if relevant positive reactions develop during testing. Discussed expectations for the final patch visit: after the tests are interpreted on Sunday I will discuss the results in-depth. An information sheet about contact allergy will be given summarizing the positive results. For each allergic reaction, the patient will receive an information sheet reviewing the allergen name, synonyms, potential cross-reacting chemicals, possible exposure sources, and potential alternative products as needed. Answered all questions. Patient verbally expressed understanding and gave verbal consent to initiate the patch testing procedure. Panels applied and panels outlined in purple skin marker. Photo taken and charted with patient verbal consent Patch Test Name: NACDG Number of Allergens Applied: NACDG 70 Supplemental series: 5 Additional Shoe Tray: rubber chemicals : 5 total ( # 7 dibutylthiourea 1 % pet.) (# 13 diphenylthiourea 1 % pet) (# 14 dodecyl Mercaptan 0.1% pet ) ( # 17 hydroquinone monobenzlether 1 % pet. ) ( # 24 thiourea 0.1% pet. ) Dyes colorants: 3 total ( # 6 disperse orange - 3 1 % pet. ) ( # 7 disperse red -1 1 % pet ) ( # 10disperse yellow-3 1 % pet ) Metal compounds: 3 total ( # 1 aluminum hydroxide 10 % ) ( # 8 copper sulpahte 1 % pet ) ( # 9 copper sulphate 2% pet ) Location of Application of Panels: Back Applied By: OCTAVIO CHISHOLM LPN Counseled: keep back dry until after Sunday visit. Follow-up: Two (2) days for patch test removal and 48h interpretation I am documenting this encounter acting as the scribe for and in the presence of Dr. Jane: OCTAVIO CHISHOLM LPN I performed the above scribed service and agree with the accuracy of the documentation in this encounter. Almas Jane MD FAAD Section of Dermatology [facility] documented in this encounter Plan of Treatment Not on file documented as of this encounter Visit Diagnoses Diagnosis Encounter for allergy testing- Primary Diagnostic skin and sensitization tests documented in this encounter Care Teams Bullet Swaging Machine Adjuster Relationship Specialty Start Date End Date Diamond Cerrato APRN PCP - General Family Medicine 02/05/15 05/21/16 documented as of this encounter
--- OUTSIDE RECORDS SUMMARY | 2023-12-17 16:41 | XMS_ITS | Encounter Summary ---
Author Organization [facility] [place] [address] Care Team Providers Care Real Estate Appraiser Supervisor Name Role Phone Diamond Cerrato TIMBO Primary Care Provider [phone] Reason for Visit * Reason Comments Rash * Consultation (Routine) - Closed Specialty Diagnoses / Procedures Referred By Contac t Referred To Contact Dermatology Diagnoses Allergic dermatitis ? PATCH TESTING- ALLERGIC DERMATITIS, SUSPECT DYE ALLERGIES, PERHAPS TO PARAPHENYLENEDIAMINE Geo Rodrigez MD [address] [facility], [place] [address] Almas Jane MD [address] [facility] [address] Referral ID Status Reason Start Date Expiration Date V isits Requested Visits Authorized [id number] Closed Consult, [facility] 01/04/2015 01/04/2016 6 6 Encounter Details Date Type Department Care Team (Late st Contact Info) Description 02/05/2015 10:00 AM EST Office Visit Dermatology at [facility] [address] [place] [id number] Almas Jane MD [address] [facility] [address] Allergic contact dermatitis (Primary Dx) Social History Tobacco Use Types Packs/Day Years Used Date Smoking Tobacco: Never Sex and Gender Information Value Date Recorded Sex Assigned at Not on file Gender Identity Not on file Sexual Orientation Not on file documented as of this encounter Patient Instructions * Patient Instructions* Yana Slater LPN - 02/05/2015 10:29 AM EST How to Use Wet Wrap Therapy The basic technique is as follows: 1. The patient soaks in a lukewarm bath with no fragrances and the bath should last 10-20 minutes. 2. Within three minutes of exiting the bath, do the following steps: ??? Pat the skin partially dry with a towel. Do not rub the skin as rubbing can irritate the skin. ??? Apply moisturizer and medication. This should be applied to the patient???s skin as directed byyour purchasing officer. 3. Moisten the ???bandages?? (these can be hand towels or small towels). Soak them in the bathwater and then wring dry so not dripping wet. ??? When treating an infant or very young child, moistened pajamas may be used instead of wet wraps. ??? Special care must be taken to prevent from becoming chilled. 4. Wrap the affected areas. 5. Lock in moisture by applying dry ???bandages?? over the wet ones. Bleach Baths Add about 4 ounces of bleach to 40 gallons of water (the average bathtub holds about 40 gallons when filled). Skin should be rinsed off to remove bleach. (NOTE: some people have prefer using apple cider vinegar instead but this has not been well studied.) documented in this encounter Progress Notes * Yana Slater LPN - 02/05/2015 10:10 AM EST Reason for Referral: ? PATCH TESTING- ALLERGIC DERMATITIS, SUSPECT DYE ALLERGIES, PERHAPS TO PARAPHENYLENEDIAMINE Date of Referral: 01/04/2015 Referred by: Geo Rodrigez Md [place] [id number] Chief Complaint: Rash History of Present Illness Jorge Luis Subramanian is a 24 y.o. female. Complains of a recurrent severely pruritic, burining, painful rash on the hands and feet for two years. Worse with heat, hot water. Cold is soothing. No known triggers. Currently finished cyclosporinin the last few days. Previously treated with halobetasol, prednisone, cyclosporine, apple cider vinegar, tea tree oil, lavender, eucalyptus. None have helped. Skin biopsy done April 2013 showed a llergic contact dermatitis but no report available; done at [facility]. Patient has been patch tested twice, reports whole body hives after both times and unable to read results. ? Denies Skin Cancer History No personal history of skin cancer. No family history of skin cancer. Allergies Allergies Allergen Reactions ??? Latex ??? Septra [Sulfamethoxazole-Trimethoprim] Medications cycloSPORINE (SANDIMMUNE) 100 mg Capsule; halobetasol (ULTRAVATE) 0.05 % Ointment; mupirocin (BACTROBAN) 2 % Ointment Review of Systems Significant for no fevers, chills, night sweats, or fatigue and no other pertinent and acute changes in constitutional, other skin, HEENT, gastrointestinal, respiratory, cardiovascular, genitourinary, lymphatic, musculoskeletal, endocrine, neurologic, psychiatric, allergy/immunology systems upon specific queries. 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 Mood is appropriate. Well developed, well-nourished in no apparent distress, alert and oriented to time, person, place and situation. Skin Type: II. Examination of the face, eyelids, nose, neck, hands and feet, including the finger nails, significant for the following: - red, scaly patches -some vesicles and erosions/fissures- on the palms and soles Assessment and Plan Allergic Contact Dermatitis Starts on the feet and spreads to the hands. Images show that involve dorsum and plantar feet. Previous biopsy reportedly showed spongiotic dermatitis c/w ACD. Recommend FREDERIC and shoe patch testing (remove known urticaria-causing allergens, such as bacitracin). Counseled: patch testing, process, risk of blistering due to adhesive, keep back dry for 5 days to keep wells against skin and avoid washing off skin marker, interpretation (relevant v irrelevant vunknown positives, cross reactions, and false negatives). Must be off antihistamines 2w prior to testing. Answered all questions. Handout given. Patient to schedule in 4 weeks. ?? Clobetasol twice daily prn severe eczema. Soak and smear or wet wraps 3 x per week for 3 weeks optional. ?? Bleach baths ?? Pathology report from [facility] Follow-up: in 4 weeks for patch test or sooner as needed for worsening or new dermatitis. I am documenting this encounter acting as the scribe for and in the presence of Dr. Jane: YANA PRIETO LPN I performed the above scribed service and agree with the accuracy of the documentation in this encounter. Almas Jane MD FAAD Section of Dermatology [facility] documented in this encounter Plan of Treatment Not on file documented as of this encounter Visit Diagnoses Diagnosis Allergic contact dermatitis- Primary Contact dermatitis and other eczema, due to unspecified cause documented in this encounter Care Teams Real Estate Appraiser Supervisor Relationship Specialty Start Date End Date Diamond Cerrato APRN PCP - General Family Medicine 02/05/15 05/21/16 documented as of this encounter
--- OUTSIDE RECORDS SUMMARY | 2023-12-17 16:41 | XMS_ITS | Encounter Summary ---
Author Organization [facility] [place] [address] Care Team Providers Care Postdoctoral Scholar Name Role Phone Diamond Cerrato MAST MAKER Primary Care Provider [phone] Encounter Details Date Type Department Care Team ([facility] Contact Info) Description 04/12/2015 Telephone Dermatology at [facility] [address] [place] [address] Almas Jane MD [address] [facility] [place] [address] Social History Tobacco Use Types Packs/Day Years Used Date Smoking Tobacco: Never Sex and Gender Information Value Date Recorded Sex Assigned at Not on file Gender Identity Not on file Sexual Orientation Not on file documented as of this encounter Miscellaneous Notes * Telephone Encounter - Almas Jane MD - 04/12/2015 7:56 AM EST Discussed pathology results and treatment recommendations with the patient. Patient states that after visit (same day) for biopsy, she found out that she was . She has also undertaken a gluten-free diet with improvement of hands but no change of feet. Pathology Report Skin, right lateral foot, punch biopsy: - SPONGIOTIC DERMATITIS WITH EOSINOPHILS (SEE DISCUSSION) DISCUSSION The current findings are compatible with allergic contact dermatitis and provide less ??support for psoriasis. PASd staining (repeated) reveals sparse, scattered yeasts without ??hyphae on the surface of the stratum corneum that I interpret as commensal colonization. Assessment and Recomendation Allergic Contact Dermatitis Favor ACD and given distribution, colophony remains likely source. Slight improvement since going on gluten-free diet. Also, currently . Counseled: ACD, possible allergen not tested and consideration of further allergen testing after delivery of new child, and treatment options, including lowering class of topical steroid, limited rescues with ILK or clobetasol, and phototherapy (recommend hand and foot UVA or NBUVB but if unable tofind nearby clinic with light box, consider limited use of NBUVB wand, such as DermaLight 80 or Dermaray). Discussed expectations of treatment to be symptom mitigation rather than cure given that shecontinues to flare on the feet despite avoiding colophony to the best of her ability. ?? Start TAC 0.1% bid prn rash/itching. Counseled: risks of topical steroids, including but not limited to atrophy, dyspigmentation. ?? [place] clobetasol for 2-3 x per week for rescue with OB permission. ?? Avoid allergens as previously discussed ?? Recommend NBUVB phototherapy 3 x per week. Patient to contact Dr oRdrigez for follow-up , 1st Trimester Patient states that she found out after the office visit for the biopsy that she was . Notified patient that she received a low dose of epinephrine with her skin biopsy and epi is considered a Class C in and can be associated with risks but that the amount she received small.Patient understands risk. ?? Extensively counseled risks of topical steroids and development. ?? Encouraged patient to use TAC as her base topical steroid and use clobetasol with OB permission for rescue of rash/symptoms. ?? Follow-up with OB Reference Nirav Reyes, Manolo S, Svetlana F, Josiah G, Braxton E, Nic C. Safety of topical corticosteroids in . [employer] Database of Systematic Reviews 2015, Issue 10. Art. No.: [id number]. DOI: 10.1002/46382765.AJ294918.pub3 This update adds more evidence showing no causal associations between maternal exposure to topicalcorticosteroids of all potencies and outcomes including mode of delivery, congenital abnormalities, delivery, foetal , and low score, which is consistent with the previous version of this review. documented in this encounter Plan of Treatment Not on file documented as of this encounter Visit Diagnoses Diagnosis Allergic dermatitis due to other chemical product- Primary state, incidental documented in this encounter Care Teams Postdoctoral Scholar Relationship Specialty Start Date End Date Diamond Cerrato APRN PCP - General Family Medicine 02/05/15 05/21/16 documented as of this encounter
--- OUTSIDE RECORDS SUMMARY | 2023-12-17 16:41 | XMS_ITS | Encounter Summary ---
Author Organization [facility] Address [facility] [place] [address] Care Team Providers Care Irrigation Manager Name Role Phone Diamond Cerrato LIQUOR BRIDGE OPERATOR Primary Care Provider [phone]- [phone] Reason for Visit * Reason Comments Patch Testing Encounter Details Date Type Department Care Team ([facility] Contact Info) Description 03/10/2015 9:30 AM EST Office Visit Dermatology at [facility] [address] [place] [address] Almas Jane MD [address] [facility] [address] Dermatitis (Primary Dx); Encounter for allergy testing Social History Tobacco Use Types Packs/Day Years Used Date Smoking Tobacco: Never Sex and Gender Information Value Date Recorded Sex Assigned at Not on file Gender Identity Not on file Sexual Orientation Not on file documented as of this encounter Progress Notes * Yana Slater LPN - 03/10/2015 9:36 AM EST Visit For: Patch Test History of Present Illness Jorge Luis Subramanian is a 24 y.o. female. History of eczematous dermatitis on the hands and feet here for NACDG patch testing. Tolerating well. No hives. Antecedent History: Complains of a recurrent severely [...] dermatitis but no report available; done at [facility]. Patient has been patch tested twice, reports whole body hives after both times and unable to read results. Interval changes to Medications and Medical, Family and Social Histories (including alcohol and tobacco use) Since Last Visit 03/08/2015: No significant interval history. Allergies Allergies Allergen Reactions ??? Latex ??? Septra [Sulfamethoxazole-Trimethoprim] Medications clobetasol (TEMOVATE) 0.05 % Ointment; cycloSPORINE (SANDIMMUNE) 100 mg Capsule; halobetasol (ULTRAVATE) 0.05 % Ointment; mupirocin (BACTROBAN) 2 % Ointment Social History Tobacco use - Never smoker Alcohol use - Occasionally Review of Systems Significant for no fevers, chills, night sweats, or fatigue and no other pertinent and acute changes in constitutional, other skin, HEENT, allergy/immunology systems upon specific queries. Examination Pain 0/10. Mood is appropriate. Well developed, well-nourished in no apparent distress, alert and oriented to time, person, place and situation. Examination of the back significant for the following: - positives to Assessment and Plan Dermatitis 48h Positives: #18, 40, 43 Equivocals: #3, 48 Panels removed. No complications. Panels outlined in purple skin marker. Counseled: keep back dry until after next visit. Follow-up: Two (2) days for 96h patch test interpretation I am documenting this encounter acting as the scribe for and in the presence of Dr. Jane: YANA PRIETO LPN I performed the above scribed service and agree with the accuracy of the documentation in this encounter. Almas Jane MD FAAD Section of Dermatology [facility] documented in this encounter Plan of Treatment Not on file documented as of this encounter Visit Diagnoses Diagnosis Dermatitis- Primary Contact dermatitis and other eczema, due to unspecified cause Encounter for allergy testing Diagnostic skin and sensitization tests documented in this encounter Care Teams Irrigation Manager Relationship Specialty Start Date End Date Diamond Cerrato APRN PCP - General Family Medicine 02/05/15 05/21/16 documented as of this encounter
--- OUTSIDE RECORDS SUMMARY | 2023-12-17 16:41 | XMS_ITS | Encounter Summary ---
Author Organization [facility] Address [facility] [place] [address] Care Team Providers Care Circus Agent Name Role Phone Sj Suazo MD Primary Care Provider Reason for Visit * Consultation (Routine) - Closed Specialty Diagnoses / Procedures Referred By Germaine ley Referred To Contact Dermatology Diagnoses Other local lupus erythematosus Gissell Quick, [address] [place] [address] [facility] Dermatology [address] [place] [address] Referral ID Status Reason Start Date Expiration Date V isits Requested Visits Authorized [id number] Closed Consult, Test & Treat PCP Updated and/or Approved 04/19/2022 04/19/2023 6 6 Encounter Details Date Type Department Care Team (Late st Contact Info) Description 07/26/2022 4:00 PM EDT Office Visit Dermatology at [facility] [address] [place] [id number] Gallito Heller MD [facility] [address] [place] [address] Dermatitis; Neoplasm of unspecified behavior of bone, soft tissue, and skin Social History Tobacco Use Types Packs/Day Years Used Date Smoking Tobacco: Never Sex and Gender Information Value Date Recorded Sex Assigned at Not on file Gender Identity Not on file Sexual Orientation Not on file documented as of this encounter Progress Notes * Gallito Heller MD - 07/26/2022 4:00 PM EDT Images from the original note were not included. DEPARTMENT OF DERMATOLOGY Medical Dermatology Clinic Note Provider: Gallito Heller MD Patient's preferred name Zuleima Preferred contact method for results [x]Phone []myD-H []Letter Detailed phone message OK? Yes Are there any other people with whom we may discuss your care? No Past Medical History Date, location, treatment Melanoma No Dysplastic nevi No SCC No BCC No AKs No UV Exposure & Protection No Other relevant past medical history + Patch testing 2014 showed positives to colophonium and cobaltand equivocal reactions to Methyldibromo glutaronitrile/phenoxyethanol. Biopsy results biopsy May 2014 showed acute spongiotic dermatitis. Family History Details Melanoma NMSC Other relevant family history Social History Occupation: Hobbies: Other: Pre-Procedure Questions Details Allergy to lidocaine, epinephrine, Dermabond, chlorhexidine, or adhesives Bleeding disorder or blood thinners Implanted devices (Pacemaker, defibrillator, deep brain stimulator, cochlear implant) History of Present Illness: Jorge Luis Subramanian is a 32 y.o. Patient is referred to the clinic at the request of Gissell Quick for an evaluation of a rash located on the hands and feet. Patient reports the rash has been on and off for 10+ years on and off. Patient states the only time the rash has fully gone away is when she is . (3 's). Patient reports she has been using Rx Betamethasone cream. Patient reports she uses it twice daily for 2 weeks with a 1 week off and repeats. Review of Systems: General: Feeling well. Skin: No other skin concerns. Medications: Reviewed in eD-H Allergies: Reviewed in eD-H Skin Examination: Focused skin examination of the hands, feet, scalp, knees, elbows, and ears was normal with the exception of the findings below. Assessment/Plan #. 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 Few vesicles noted on the palms and soles. - Patient has a long standing history [...] the skin scraping was negative for fungal elements. - Start Rx: augmented betamethasone BID to affected areas for 2 weeks under occlusion, 1 week off and repeat as needed. - Start: Rx: Keflex 500 mg BID x 10 days - Recommended a skin biopsy. After discussion of potential risks (scarring, bleeding, infection), patient agreed to proceed. - Patient denies known allergies to lidocaine and epinephrine. Procedure: Skin punch biopsy. Location: Left first toe Discussed indications for the procedure and expectations including risks and benefits. Verbal consent obtained. Time out performed. Skin prepped with alcohol. Local anesthesia with 1% xylocaine, 1/100,000 epinephrine. A 4 mm punch biopsy to the level of the subcutis was performed. Specimen submitted to Pathology. Wound closed with monofilament suture. There were no complications; patient tolerated the procedure well. Wound dressed. Post-procedure expectations (including discomfort management), wound care and activity restrictions reviewed. - Follow-up based on pathology results. - Suture removal: 10 -14 days. Figure 1 Photo(s) taken and charted with patient's verbal consent. Other: ??? OTC skin products discussed RTC: 6 to 8 weeks for rash follow up. []Note routed to church secretary []Recall placed in scheduling system [x]Appointment scheduled at checkout Scribe attestation: CRUZ Enciso has performed the documentation for this encounter in the presence of and acting as a scribe for Gallito Heller MD. I performed the above scribed service and agree with the accuracy of the documentation in this encounter. Reviewed and signed by: Gallito Heller MD Dermatology [facility] Patient seen and evaluated with staff harbor boat pilot: Nikki Katz MD Department of Dermatology [facility] * Nikki Katz MD - 07/26/2022 4:00 PM EDT I directly supervised the resident [...] as documented in the resident physician's note. Nikki Katz MD Staff Physician [facility] [place] * Gallito Heller MD - 07/26/2022 4:00 PM EDT Called the patient to notify about the biopsy result. Discussed that the biopsy result was consistent with dyshidrotic eczema or allergic contact dermatitis. Patient has noted some improvement with topical steroid and oral antibiotics. Discussed continuing the steroids as prescribed and follow up on 08/24 DIAGNOSIS A - Left first toe, skin punch biopsy: - Spongiotic dermatitis (see discussion) documented in this encounter Plan of Treatment Not on file documented as of this encounter Procedures Procedure Name Priority Date/Time Associated Diagnosis Comments SURGICAL PATHOLOGY REPORT Routine 07/26/2022 4:56 PM EDT SPECIMEN TO PATHOLOGY Routine 07/26/2022 4:56 PM EDT Neoplasm of unspecified behavior of bone, soft tissue, and skin documented in this encounter Results * Surgical Pathology Report (07/26/2022 4:56 PM EDT) Final Diagnosis [id number] ? Location: [facility] The signing pathologist has (i) examined the relevant preparation(s) for the specimen(s) and (ii) rendered or confirmed the diagnosis(es). . ?Surgical Pathology DIAGNOSIS A - Left first toe, skin punch biopsy: - Spongiotic dermatitis (see discussion) Electronically signed by: ?Kacie Albert MD Verified: ??08/09/2022 17:07 ??Dermatopatholog ist Performed at: ??-[facility] [place] Dept. of [place]ology, [place] [address] Vp Rheumatology: Narcisa Mckeon MD, FCAP, ??CLIA Certificate: [id number] DISCUSSION Sections show acanthosis, spongiosis, parakeratosis, exocytosis of lymphocytes, and a superficial perivascular lymphocytic infiltrate. No fungal hyphae are detected with a PAS stain. ??The findings could support clinically considered ? dyshidrotic eczema. The ??differential diagnosis would also include allergic contact dermatitis, id ??reaction or spongiotic drug eruption although significant tissue eosinophils are not present. ??Clinicopatholog ic correlation is recommended. ADDITIONAL STUDIES Fungal microorganisms are not identified, as confirmed by interpretation of a PAS stain. Interpretation of multiple sections confirms the diagnosis above. SPECIMEN(S) SUBMITTED A - Left first toe, skin punch (1) CLINICAL INFORMATION Dyshidrosis eczema vs. palmoplantar pustulosis vs allergic contact dermatitis - on the plantar wrist and bilateral toes, well demarcated pink plaques with yellow white scale. Few vesicles noted on the palms and soles. SPECIMEN PROCESSING A - Labeled/Fixative: Patient demographics, formalin. Quantity/Size: ??Single, 0.5 cm excised to depth of 0.4 cm. Tissue Description: Punch of white skin. Sections/Processi ng: Bisected and entirely submitted in 1 cassette labeled A1. ??sdy 08/09/2022 5:07 PM EDT [facility] SPECIMEN FROM SKIN / Unknown 07/26/2022 4:56 PM EDT 07/26/2022 4:56 PM EDT Gallito Heller MD PATHOLOGY/CYTOLOGY O RUBEN [facility] [place] [address] [facility] [place] [address] * Specimen to Pathology (07/26/2022 4:56 PM EDT) AP Specimen 07/26/2022 4:56 PM EDT 07/26/2022 4:56 PM EDT Narrative [facility] - 07/26/2022 4:56 PM EDT Specimen requisition ordered. ??Separate Pathology report to follow Nikki Katz MD PATHOLOGY/CYTOLOGY O RDAKIKO Performing Organization Address City/[facility]/ZIP Co de Phone Number [facility] [place] [address] documented in this encounter Visit Diagnoses Diagnosis Dermatitis Contact dermatitis and other eczema, due to unspecified cause Neoplasm of unspecified behavior of bone, soft tissue, and skin documented in this encounter Care Teams Circus Agent Relationship Specialty Start Date End Date Sj Suazo MD [address] [facility] [address] [place] [address] PCP - General Obstetrics and Gynecology 04/19/22 documented as of this encounter
--- OUTSIDE RECORDS SUMMARY | 2023-12-17 16:41 | XMS_ITS | Encounter Summary ---
Author Organization [facility] [address] Care Team Providers Care Ceramic Engineering Professor Name Role Phone Sj Suazo MD Primary Care Provider Reason for Referral * Consultation (Routine) - Closed Specialty Diagnoses / Procedures Referred By Germaine ley Referred To Contact Dermatology Diagnoses Other local lupus erythematosus Gissell Quick PA [address] [place] [address] [facility] Dermatology [address] [place] [address] Referral ID Status Reason Start Date Expiration Date V isits Requested Visits Authorized [id number] Closed Consult, Test & Treat PCP Updated and/or Approved 04/19/2022 04/19/2023 6 6 Encounter Details Date Type Department Care Team (Latest Contact Info) Description 04/19/2022 Transcribe Orders eDH Incoming Referrals [phone] Gissell Quick [address] [place] [address] Other local lupus erythematosus Social History Tobacco Use Types Packs/Day Years Used Date Smoking Tobacco: Never Sex and Gender Information Value Date Recorded Sex Assigned at Not on file Gender Identity Not on file Sexual Orientation Not on file documented as of this encounter Plan of Treatment Scheduled Referrals Name Type Priority Associated Diagnoses Orde r Schedule Referral to Dermatology Outpatient Referral Routine Other local lupus erythematosus Ordered: 04/19/2022 documented as of this encounter Visit Diagnoses Diagnosis Other local lupus erythematosus documented in this encounter Care Teams Ceramic Engineering Professor Relationship Specialty Start Date End Date Sj Suazo MD [address] [facility] [address] [place] [id number] PCP - General Obstetrics and Gynecology 04/19/22 documented as of this encounter
--- OUTSIDE RECORDS SUMMARY | 2023-12-17 16:41 | XMS_ITS | Encounter Summary ---
Author Organization [facility] Address [facility] [place] [address] Care Team Providers Care Property Insurance Claims Examiner Name Role Phone Diamond Cerrato GERONTOLOGICAL NURSE PRACTITIONER Primary Care Provider +1- [phone] Reason for Visit * Reason Comments Follow-up Encounter Details Date Type Department Care Team ([facility] Contact Info) Description 03/31/2015 11:15 AM EST Office Visit Dermatology at [facility] [address] [place] [address] Almas Jane MD [address] [facility] [place] [address] Dermatitis (Primary Dx) Social History Tobacco Use Types Packs/Day Years Used Date Smoking Tobacco: Never Sex and Gender Information Value Date Recorded Sex Assigned at Not on file Gender Identity Not on file Sexual Orientation Not on file documented as of this encounter Patient Instructions * Patient Instructions* Yana Slater LPN - 03/31/2015 11:40 AM EST How to Use Wet Wrap [...] to the patient???s skin as directed byyour physician credentialing specialist. 3. Moisten the ???bandages?? (these can be [...] applying dry ???bandages?? over the wet ones. 6. documented in this encounter Progress Notes * Yana Slater LPN - 03/31/2015 11:14 AM EST Chief Complaint: ACD f/u - worsening History of Present Illness Jorge Luis Subramanian is a 24 y.o. 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 She has changed her shoes tosoft soles that reportedly do not have glued soles. Antecedent History: Complains of a recurrent severely [...] dermatitis but no report available; done at [facility]. Patient has been patch tested twice, reports whole body hives after both times and unable to read results. FREDERIC patch testing Feb 2015 showed positives to colophonium and cobalt and equivocal reactions to Methyldibromo glutaronitrile/phenoxyethanol. Biopsy results were requested from [facility] but as of Mar 2015 were not [place] [facility]. Interval Changes in Medications and Medical, Surgical Family, and Social Histories Since Last Visit03/12/2015: No significant and pertinent interval changes. Allergies Allergies Allergen Reactions ??? Latex ??? Septra [Sulfamethoxazole-Trimethoprim] Medications clobetasol (TEMOVATE) 0.05 % Ointment; cycloSPORINE (SANDIMMUNE) 100 mg Capsule; halobetasol (ULTRAVATE) 0.05 % Ointment; mupirocin (BACTROBAN) 2 % Ointment Social History Tobacco use - Never smoker Alcohol use - Occasionally Patient would like to get , hesitant to take teratogens Review of Systems Significant for no fevers, chills, night sweats, or fatigue and no other pertinent and acute changes in constitutional, other skin, HEENT, gastrointestinal, musculoskeletal, allergy/immunology systems upon specific queries. Examination Standby: YANA SLATER LPN Pain 0/10. Mood is appropriate. Well developed, well-nourished in no apparent distress, alert and oriented to time, person, place and situation. Examination of the forearms/hands, legs/feet significant for the following: ?? red, scaly patches -some vesicles and erosions/fissures- on the palms and soles; worse on the soles than the palms; pink poorly demarcated scaly patches and papules on the legs and forearms. Assessment and Plan Dermatitis Flaring despite treatment and allergen avoidance. Previously favored colophony. DDx: ACD v dyshidrotic eczema + Id reaction. Concerned about psoriasis. Favor ACD with Id reaction.Pathology report from [facility] has not been received. Counseled: eczema v psoriasis, patch test with Preservative series, rebiopsy and/or consideration of phototherapy or systemic therapy. Patient states that she would like to get soon. ?? DC Clobetasol ?? Start betamethasone valerate twice daily prn severe eczema. Soak and smear or wet wraps 3 x per week for 3 weeks optional. ?? Bleach baths daily ?? Consideration for rebiopsy of patient. Pathology report from [facility]. Follow-up: based on pathology report from [place]. I am documenting this encounter acting as the scribe for and in the presence of Dr. Jane: YANA PRIETO LPN I performed the above scribed service and agree with the accuracy of the documentation in this encounter. Almas Jane MD FAAChris Section of Dermatology [facility] documented in this encounter Plan of Treatment Not on file documented as of this encounter Visit Diagnoses Diagnosis Dermatitis- Primary Contact dermatitis and other eczema, due to unspecified cause documented in this encounter Care Teams Property Insurance Claims Examiner Relationship Specialty Start Date End Date Diamond Cerrato APRN PCP - General Family Medicine 02/05/15 05/21/16 documented as of this encounter
--- OUTSIDE RECORDS SUMMARY | 2023-12-17 16:41 | XMS_ITS | Encounter Summary ---
Author Organization [facility] Address [facility] [place] [address] Care Team Providers Care Electrician Manager Name Role Phone Diamond Cerrato TIMBO Primary Care Provider [phone] Encounter Details Date Type Department Care Team (Late Contact Info) Description 03/12/2015 1:15 PM EST Office Visit Dermatology at [facility] [address] [place] [address] Almas Jane MD [address] [facility] [place] [address] Dermatitis (Primary Dx); Allergic contact dermatitis Social History Tobacco Use Types Packs/Day Years Used Date Smoking Tobacco: Never Sex and Gender Information Value Date Recorded Sex Assigned at Not on file Gender Identity Not on file Sexual Orientation Not on file documented as of this encounter Progress Notes * Lyndon Camilo LPN - 03/12/2015 1:13 PM EST Visit For: Patch Test History of Present Illness Jorge Luis Subramanian is a 24 y.o. female. History of eczematous dermatitis on the hands and feet here for last day patch testing NACDG . Denies any changes in skin today, no new rashes. Reports back is entirely clear today. Antecedent History: Complains of a recurrent severely [...] dermatitis but no report available; done at [facility]. Patient has been patch tested twice, reports whole body hives after both times and unable to read results. Interval changes to Medications and Medical, Family and Social Histories (including alcohol and tobacco use) Since Last Visit 03/10/15: No significant interval history. Allergies Allergies Allergen Reactions ??? Latex ??? Septra [Sulfamethoxazole-Trimethoprim] Medications Reconciled as above. Social History Tobacco use - Never Alcohol use - Occasionally Review of Systems [...] the back significant for the following: - positive (+) to #3, 48 - equivocal (+/-) 18, 40 Assessment and Plan Dermatitis 96h Positives: colophonium and cobalt. Equivocal reactions to previous positive, #18. Overall favor ACD to colophony and/or potassium dichromate. Distribution on the plantar surface suggestive of colophony reaction. Should consider Id reaction on the hands. Allergic Contact Dermatitis, Shoe and Hand Dermatitis Most Likely Colophony comes from the sap of coniferous trees such as pines, junipers, firs, and cedars. Colophony (or rosin) is found in personal care and beauty products, topical medications, surface coatings, lubricants, adhesives and sealants, as well as the rosin for string instruments and dancers??? shoes. Another potential source of exposure to colophony is diapers and feminine hygiene products. Colophony derivatives are also found in shoe adhesives, particularly as a tackifier in the rubber cements that are used for sole attachment or for attaching layers below the insole. Potassium Dichromate is found naturally in our environment: in sand, snehal, hillary, and loam. It can befound in tools made of steel, and chrome-plated objects (silverware, handles, bracelets, needles, etc.). Chromium is also used as a component in leather (shoes, suede, upholstery) and fur-tanning agents, wood preservatives, anti-corrosion paints, fire retardants, printing inks, color glazes, chromium pigments, dark textile dyes, concrete, epoxy hardeners, and photographic color control supervisor. Chromate is also found in cement (not dried) and metal plating and is a cause of occupational dermatitis inbricklayers, construction workers, and metal workers. Less Likely [place] (II) chloride hexahydrate is a metal used with other metals to make metal alloys. Because cobalt and nickel can be found in many of the same metal products, allergies to both metals can develop. To prevent this, consider wearing jewelry made of frida silver or other reinaldo metals, rather than costume jewelry. [place] is frequently combined with nickel, and this may explain the fact that cosensitivity to these two metals is common. Nickel-plated objects are reported to be the most common exposure Uncertain Relevance Methyldibromo glutaronitrile/phenoxyethanol is a preservative composed of 80% phenoxyethanol and 20% methyldibromo glutaronitrile, the latter of which is a principle allergen. It is commonly used in cosmetics and personal care products such as body lotions, facial lotions, and hand lotions, sunscreen lotions, baby lotions, shower gels and shampoos, and massage oils. It may also be found in industrial cutting oils, drilling oils, and coolants. Follow-up: in 6 weeks or sooner as needed for worsening or new dermatitis. I am documenting this encounter acting as the scribe for and in the presence of Dr. Jane: LYNDON CAMILO LPN I performed the above scribed service and agree with the accuracy of the documentation in this encounter. Almas Jane MD FAAD Section of Dermatology [facility] documented in this encounter Plan of Treatment Not on file documented as of this encounter Visit Diagnoses Diagnosis Dermatitis- Primary Contact dermatitis and other eczema, due to unspecified cause Allergic contact dermatitis Contact dermatitis and other eczema, due to unspecified cause documented in this encounter Care Teams Electrician Manager Relationship Specialty Start Date End Date Diamond Cerrato APRN PCP - General Family Medicine 02/05/15 05/21/16 documented as of this encounter
--- OUTSIDE RECORDS SUMMARY | 2023-12-17 16:41 | XMS_ITS | Encounter Summary ---
Author Organization [facility] Address [facility] [place] [address] Care Team Providers Care Coat Repair Inspector Name Role Phone Diamond Cerrato Vikki IZQUIERDO Primary Care Provider [phone] Encounter Details Date Type Department Care Team (Late st Contact Info) Description 04/05/2015 2:00 PM EST Office Visit Dermatology at [facility] [address] [place] [address] Almas Jane MD [address] [facility] [place] [address] Dermatitis Social History Tobacco Use Types Packs/Day Years Used Date Smoking Tobacco: Never Sex and Gender Information Value Date Recorded Sex Assigned at Not on file Gender Identity Not on file Sexual Orientation Not on file documented as of this encounter Patient Instructions * Patient Instructions* Octavio Chisholm LPN - 04/05/2015 11:49 AM EST Treatment and Wound Care Instructions Your treatment today: You have had a punch biopsy of your skin, which is a removal of tissue for examination under a microscope. There are stitches in the wound that will need to be removed in 10-14 days. If bleeding occurs, hold firm pressure against the wound for 15 minutes. If bleeding continues, calls the office or go to your local emergency room. Please allow 1-2 weeks for the biopsy results to return. Your physician or nurse will contact you with the results by phone or letter; follow-up will be discussed at that time. Wound Care Instructions: You will need to keep the dressing placed over the wound dry and intact for 24 hours. Afterwards, perform the following wound care daily until your stitches are removed: ?? Wash your hands before changing the dressing. ?? Remove the bandage and clean the area with mild soap and water, then gently pat the area dry. ?? Apply a small amount of Vaseline to the area, then cover the wound with a band-aid. Change your dressing daily until the wound is fully healed. ?? A small amount of yellow drainage is part of normal healing. You might notice some redness around the edge of the wound. This is normal. ?? Please contact the office you you notice any of the following signs of infection: increased tenderness, pain, drainage, or redness that becomes hot or hard around the wound. If you have further questions or concerns, please call the office at [phone]. If it is after 5PM, or a holiday or weekend, please call [phone] and ask for the Farm Butcher on-call. documented in this encounter Progress Notes * Octavio Chisholm LPN - 04/05/2015 11:54 AM EST Visit For: punch biopsy History of Present Illness Jorge Luis Subramanian is a 24 y.o. 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 She has changed her shoes tosoft soles that reportedly do not have glued soles. Here today for biopsy. Antecedent History: Complains of a recurrent severely [...] dermatitis but no report available; done at [facility]. Patient has been patch tested twice, reports whole body hives after both times and unable to read results. FREDERIC patch testing Feb 2015 showed positives to colophonium and cobalt and equivocal reactions to Methyldibromo glutaronitrile/phenoxyethanol. Biopsy results biopsy May 2014 showed acute spongiotic dermatitis. Interval Changes in Medications and Medical, Surgical Family, and Social Histories Since Last Visit02/23--: No significant and pertinent interval changes. Allergies Allergies Allergen Reactions ??? Latex ??? Septra [Sulfamethoxazole-Trimethoprim] Medications betamethasone valerate (VALISONE) 0.1 % Cream; cycloSPORINE (SANDIMMUNE) 100 mg Capsule; halobetasol (ULTRAVATE) [...] allergy/immunology systems upon specific queries. Examination Standby: OCTAVIO S WEST, SUGAR PRESSER Pain 0/10. Mood is appropriate. Well developed, well-nourished in no apparent distress, alert and oriented to time, person, place and situation. Examination of the forearms/hands, legs/feet significant for the following: ?? red, scaly patches on the palms and soles with vesicles on the soles Procedure Punch Procedure Discussed with patient diagnostic options, including the risks and benefits of observation, empirictreatment, and biopsy, including but not limited to recurrence, cosmesis (scar, dyspigmentation, scar spread), pain, keloid/hypertrophic scar, bleeding, infection, hematoma, nerve damage, and bruising. Patient verbally understands and elects biopsy. Allergies See above or Breast Feeding Denies Defibrillator or Pacemaker Denies Time Out Performed: Full Name, , and site(s) confirmed with patient Procedure (s) A. Punch Location (s) A. Right lateral foot Pre-Operative Diagnosis A. ACD vs Psoriasis vs Tinea Anesthesia: 1% lidocaine+1:100,000 epinephrine Sterile Prep Alcohol Lesion biopsied with punch technique using a 5mm punch. Wound edges approximated with simple interrupted 3-0 prolene. <1ml blood loss. No complications. Specimen(s): Placed in formalin and sent to Pathology for histologic examination. Post-op care: Vaseline, Pressure Dressing Post-operative pain: 0/10 Assessment and Plan Dermatitis Wound care instructions provided. No soaking baths or swimming for 96h. Wound care: Vaseline or antibiotic ointment, bandaid every 12-24h. Remove sutures in 14d ?? New Rx: Mupirocin ointment 2% apply with every dressing change ?? Continue betamethasone valerate twice daily prn severe eczema. Soak and smear or wet wraps 3 x per week for 3 weeks optional. Follow-up: Based on pathology patient will be called. I am documenting this encounter acting as the scribe for and in the presence of Dr. Jane: OCTAVIO CHISHOLM LPN I performed the above scribed service and agree with the accuracy of the documentation in this encounter. Almas Jane MD FAAD Section of Dermatology [facility] documented in this encounter Plan of Treatment Not on file documented as of this encounter Procedures Procedure Name Priority Date/Time Associated Diagnosis Comments SURGICAL PATHOLOGY REPORT Routine 04/05/2015 12:06 PM EST SPECIMEN TO PATHOLOGY Routine 04/05/2015 12:06 PM EST Dermatitis documented in this encounter Results * Surgical Pathology Report (04/05/2015 12:06 PM EST) Final Diagnosis [id number] ?Location: [facility] The signing pathologist has (i) examined the relevant preparation(s) for the specimen(s) and (ii) rendered or confirmed the diagnosis(es). . ?Surgical Pathology DIAGNOSIS Skin, right lateral foot, punch biopsy: - SPONGIOTIC DERMATITIS WITH EOSINOPHILS (SEE DISCUSSION) 04/06/15 BJ 04/07/15 Verified by: ? Rojelio LUNSFORD, Wilian Lees ?Dermatopathol ogist ?(Electronic Signature) The attending pathologist whose signature appears on this report has reviewed all diagnostic slides and has edited the gross and/or microscopic portion of the report in rendering the final pathologic diagnosis. DISCUSSION The current findings are compatible with allergic contact dermatitis and provide less support for psoriasis. PASd staining (repeated) reveals sparse, scattered yeasts without hyphae on the surface of the stratum corneum that I interpret as commensal colonization. ADDITIONAL STUDIES Multiple step-leveled sections are reviewed. CLINICAL INFORMATION Specimen Submitted: A - Skin, right lateral foot, red, scaly pathces - some vesicles and erosions/fissur es, punch, (1) Clinical History: ACD versus psoriasis versus tinea SPECIMEN PROCESSING A - Labeled/Fixativ e: Right lateral foot, formalin. Quantity/Size: Single, 0.5 x 0.5 x 0.3 cm. Tissue Description: punch of firm vance-white granular skin. Sections/Proces sing: Bisected. (T1) ??aml 04/07/2015 10:22 AM EST [facility] SPECIMEN FROM SKIN / Unknown 04/05/2015 12:06 PM EST 04/05/2015 12:06 PM EST Almas Jane MD PATHOLOGY/CYTOLOGY O [facility] [place] [address] * Specimen to Pathology (surgical or derm) (04/05/2015 12:06 PM EST) AP Specimen 04/05/2015 12:0 6 PM EST 04/05/2015 3:27 PM EST Narrative [facility] - 04/05/2015 3:27 PM EST Specimen requisition ordered. ??Separate Pathology report to follow Resulting Agency Comment Spec In Lab Almas Jane MD PATHOLOGY/CYTOLOGY [facility] documented in this encounter Visit Diagnoses Diagnosis Dermatitis Contact dermatitis and other eczema, due to unspecified cause documented in this encounter Care Teams Coat Repair Inspector Relationship Specialty Start Date End Date Diamond Cerrato APRN PCP - General Family Medicine 02/05/15 05/21/16 documented as of this encounter
--- OUTSIDE RECORDS SUMMARY | 2023-12-17 16:41 | XMS_ITS | Encounter Summary ---
Author Organization [facility] Address [facility] [place] [address] Care Team Providers Care Lead Electrical Engineer Name Role Phone Shaun Figueroa MD Primary Care Provider [phone] Encounter Details Date Type Department Care Team (Late st Contact Info) Description 01/01/2015 3:00 PM EDT Office Visit Dermatology at [address] [address] Geo Rodrigez MD [address] [facility] [place] [address] Allergic contact dermatitis Social History Tobacco Use Types Packs/Day Years Used Date Smoking Tobacco: Never Sex and Gender Information Value Date Recorded Sex Assigned at Not on file Gender Identity Not on file Sexual Orientation Not on file documented as of this encounter Progress Notes * Geo Rodrigez MD - 01/01/2015 3:22 PM EDT Problem: Followup allergic contact dermatitis, feet, with id-type reaction of the hands also. Jorge Luis follows up and things are under control, but just barely. She continues on cyclosporine 100 mg one p.o. b.i.d. and has been using halobetasol ointment on a daily basis. She is wearing white socks, but she still has had since our last visit on December 03 two episodes of mild flaring of her toes, despite the fact that she was still actively taking cyclosporine. Physical examination today reveals a pleasant 24-year-old who has still patchy erythema on the soles of both feet, extending up onto the lateral and medial aspects of her foot, and onto the dorsum of her toes. She has some patchy erythema also of the palmar hands but without vesicles or bullae. There is no serous oozing today. There are no open erosions. She is much more comfortable. She is able to work. Assessment and Plan: Allergic contact dermatitis, question dye allergy, perhaps shoe allergy. a. We will again check with Dr. Conner's office about availability of patch testing for Dylanie. b. Continue cyclosporine 100 mg one p.o. b.i.d.; #60 dispensed with zero refills. Blood pressure today 120/80. c. Continue halobetasol ointment, applying on a q.day basis to affected areas. COPY: Maira Natarajan M.D. documented in this encounter Plan of Treatment Not on file documented as of this encounter Visit Diagnoses Diagnosis Allergic contact dermatitis Contact dermatitis and other eczema, due to unspecified cause documented in this encounter Care Teams Lead Electrical Engineer Relationship Specialty Start Date End Date Shaun Figueroa MD [address] [place] [address] PCP - General 02/15/10 02/04/15 documented as of this encounter
--- OUTSIDE RECORDS SUMMARY | 2023-12-17 16:41 | XMS_ITS | Encounter Summary ---
Author Organization [facility] [place] [address] Care Team Providers Care Final Inspector And Tester Name Role Phone Shaun Figueroa MD Primary Care Provider [phone] Reason for Visit * Reason Comments Dermatitis Encounter Details Date Type Department Care Team (Late st Contact Info) Description 12/03/2014 9:45 AM EDT Office Visit Dermatology at [address] [place] [address] Geo Rodrigez MD [address] [facility] [place] [address] Allergic contact dermatitis Discharge Disposition: Home Social History Tobacco Use Types Packs/Day Years Used Date Smoking Tobacco: Never Sex and Gender Information Value Date Recorded Sex Assigned at Not on file Gender Identity Not on file Sexual Orientation Not on file documented as of this encounter Patient Instructions * Patient Instructions* Melissa Alexander LPN - 12/03/2014 10:05 AM EDT Images from the original note were not included. [facility] Dermatitis: After Your Visit Your Care Instructions Dermatitis is the general name used for any rash or inflammation of the skin. Different kinds of dermatitis cause different kinds of rashes. Common causes of a rash include new medicines, plants (such as poison oak or poison windy), heat, stress, and allergies to soaps, cosmetics, detergents, chemicals, and fabrics. Certain illnesses can also cause a rash. Unless caused by an infection, these rashes cannot be spread from person to person. How long your rash will last depends on what caused it. Rashes may last a few days or months. Follow-up care is a myers part of your treatment and safety. Be sure to make and go to all appointments, and call your doctor if you are having problems. It???s also a good idea to know your test results and keep a list of the medicines you take. How can you care for yourself at home? ?? Do not scratch. Cut your nails short, and file them smooth. Or you may wear gloves if this helpskeep you from scratching. ?? If you use soap on the rash, choose a gentle soap and use as little as possible. ?? Put cold, wet cloths on the rash to reduce itching. ?? Keep cool, and stay out of the sun. Heat makes itching worse. ?? Leave the rash open to the air when you can. If your clothes have to cover the rash, wear cottonor silk. ?? If the rash itches, use hydrocortisone cream. Follow the directions on the label. Calamine lotion may help for plant rashes. ?? Try an [id number] antihistamine such as diphenhydramine (Benadryl) or chlorpheniramine (Chlor-Trimeton). Follow the directions on the label. ?? If you get a prescription steroid cream or pills, use them as directed. When should you call for help? Call your doctor now or seek immediate medical care if: ?? You have signs of infection, such as: ?? Increased pain, swelling, warmth, or redness. ?? Red streaks leading from the rash. ?? Pus draining from the rash. ?? A fever. ?? You have joint pain along with the rash. ?? The rash gets worse or spreads to other parts of your body. Watch closely for changes in your health, and be sure to contact your doctor if: ?? You do not get better after 2 to 3 weeks of home treatment. Where can you learn more? Visit our health information library at http://[employer] You can also view health information on [employer], your personal patient account. Log in or sign up today. Enter F270 in the search box to learn more about Dermatitis: After Your Visit. ?? [id number] [email or web address]. Care instructions adapted under license by [facility]. This care instruction is for use with your licensed healthcare professional. If you have questions about a medical condition or this instruction, always ask your healthcare professional. [email or web address] disclaims any warranty or liability for your use of this information. Content Version: 10.4.783396; Current as of: June 04, 2013 documented in this encounter Progress Notes * Geo Rodrigez MD - 12/03/2014 10:23 AM EDT Problem: Dermatitis. Jorge Luis follows up and is now 24. I last saw her seven years ago. Since then she has and was living in [place] and while there developed a vesicular dermatitis of her feet. She was seen by dermatologists who apparently did patch testing, which was inconclusive. The first patch test results were negative, but the second attempt resulted in a generalized, diffuse worsening of her dermatitis and a redness of her entire back. The patient describes blisters developing on the dorsum of her toes, then spreading up to the dorsum of the foot with patchy erythema and small vesicles on her legs, thighs, and palmar hands. She has been given courses of prednisone in the past. She has been told to avoid dyed socks. She works [employer] and did so in [place] as well. She has known allergies to SEPTRA and LATEX. She states that since March 2014 things were going fairly well, but just during the last couple of weeks things have flared up again out of the blue very badly. She just recently started working at [email or web address] and just recently bought some new dark socks to wear. The patient states that a biopsy was done in [place] and it was consistent with allergic contact dermatitis. The patient is here today with her father, Kofi. I have seen Jorge Luis in the past for multiple wart treatments. The patient is seen in consultation today for Diamond Cerrato. Physical examination reveals a vesicular eczematous dermatitis of the dorsum of the feet with serous oozing from open erosions. It extends somewhat in between the toe web spaces. She has spongiotic patches also on her thighs, legs, and palmar hands. Assessment and Plan: Allergic contact dermatitis, suspect dye allergies, perhaps to paraphenylenediamine. a. This might explain the explosive reaction she has been experiencing over the last week or two and the result of the second patch test attempt being unreadable. b. I recommended that she be seen by Dr. Cnoner for consideration of patch testing. Perhaps just paraphenylenediamine could be tested by itself separately rather than together with the whole tray. c. Begin cyclosporin 100 mg one p.o. b.i.d.; #60 dispensed with zero refills. d. Begin also halobetasol ointment, applying to feet on a b.i.d. basis; 45 grams dispensed with three refills. e. Return to clinic in two weeks for repeat check on her progress. COPY: Cherelle Natarajan MD documented in this encounter Plan of Treatment Not on file documented as of this encounter Visit Diagnoses Diagnosis Allergic contact dermatitis Contact dermatitis and other eczema, due to unspecified cause documented in this encounter Care Teams Final Inspector And Tester Relationship Specialty Start Date End Date Shaun Figueroa MD [address] [place] [address] PCP - General 02/15/10 02/04/15 documented as of this encounter
== END 2023-12-17 16:40 | disposition home or self-care (01) ==
LOC: NCHCN 16:39
PROVIDERS: PCP Family Medicine; Visit Provider Family Medicine
DX: N39.0 Urinary tract infection, site not specified (principal); R82.89 Other abnormal findings on cytological and histological examination of urine
CPT/HCPCS: 87086

== ENCOUNTER 2023-12-24 08:26 | Outpatient (REF) | payer OTHER, SELFPAY ==
--- OUTSIDE RECORDS SUMMARY | 2023-12-24 08:28 | XMS_ITS | Encounter Summary ---
[place] [address] Care Team Providers Care American Board Certified Orthotist Name Role Phone Sj Suazo MD Primary [...] on filedocumented in this encounter Care Teams American Board Certified Orthotist Relationship Specialty Start Date End Date Sj Suazo MD [address] [place] [address] PCP - General Obstetrics and Gynecology 04/19/22 documented as of this encounter
--- OUTSIDE RECORDS SUMMARY | 2023-12-24 08:28 | XMS_ITS | Encounter Summary ---
[place] [address] Care Team Providers Care Directory Clerk Name Role Phone Sj Suazo MD Primary [...] on filedocumented in this encounter Care Teams Directory Clerk Relationship Specialty Start Date End Date Sj Suazo MD [address] [place] [address] PCP - General Obstetrics and Gynecology 04/19/22 documented as of this encounter
--- OUTSIDE RECORDS SUMMARY | 2023-12-24 08:28 | XMS_ITS | Clinical Summary ---
Author Organization [facility] Address [facility] [place] [address] Care Team Providers Care English Faculty Member Name Role Phone Sj Suazo MD Primary Care Provider Allergies Active Allergy Reactions Criticality Noted Date Comments Latex 02/05/2015 Sulfamethoxazole-Trimethoprim 2014 Medications Medication Sig Dispensed Refills Start Date End Date Status cycloSPORINE (SANDIMMUNE) 100 mg Capsule 0 12/03/2014 Active halobetasol (ULTRAVATE) 0.05 % Ointment 0 12/04/2014 Active betamethasone valerate (VALISONE) 0.1 % CreamIndications:Henriette titis Apply topically 2 times daily. 90 [...] 60 g 10/25/2022 Active ruxolitinib 1.5 % CreamIndications:Henriette titis Apply topically two times daily to affected areas on hands and feet 60 g 3 01/30/2023 Active mupirocin (Bactroban) 2 % OintmentIndications:Elver lu of fifth toe Apply topically two times [...] Hepatitis B vaccine (0-59 yrs) (1) 2011 Tetanus/Diphtheria/Pertussis Vaccines (1 - Tdap) 04/21 HPV test 2022 PAP Smear 2022 Covid-19 Vaccine (1 - 2022- season) 2023 Influenza (Flu) vaccine (1 o f 1 - Influenza standard series) 11/25/2023 Care Teams English Faculty Member Relationship Specialty Start Date End Date Sj Suazo MD [address] [place], [place] [id number] PCP - General Obstetrics and Gynecology 04/19/22
--- OUTSIDE RECORDS SUMMARY | 2023-12-24 08:28 | XMS_ITS | Encounter Summary ---
Author Organization [facility] [place] [address] Care Team Providers Care Perforator Name Role Phone Sj Suazo MD Primary Care Provider Reason for Visit * Reason Comments Specialty Pharmacy Review Encounter Details Date Type Department Care Team (Late st Contact Info) Description 01/30/2023 Specialty [place] [address] Lion Jurado, [facility] Social History Tobacco Use Types Packs/Day Years Used Date Smoking Tobacco: Never Sex and Gender Information Value Date Recorded Sex Assigned at Not on file Gender Identity Not on file Sexual Orientation Not on file documented as of this encounter Progress Notes * Lion Jurado - 01/30/2023 11:59 PM EST The [facility] has completed a benefits investigation for Jorge Luis Subramanian to review their eligibility to fill at [facility]. Per patient's medication list they are prescribedDUPIXENT 300 MG/2 ML and the medication is not able to be filled at the [facility]. Theprior authorization has been denied. documented in this encounter Plan of Treatment Not on file documented as of this encounter Visit Diagnoses Not on filedocumented in this encounter Care Teams Perforator Relationship Specialty Start Date End Date Sj Suazo MD [address] [place] [address] PCP - General Obstetrics and Gynecology 04/19/22 documented as of this encounter
--- OUTSIDE RECORDS SUMMARY | 2023-12-24 08:28 | XMS_ITS | Encounter Summary ---
[place] [address] Care Team Providers Care Supervisor Roving Department Name Role Phone Sj Suazo MD Primary Care Provider Reason for Visit * Reason Comments Patient Education Encounter Details Date Type Department Care Team (Late st Contact Info) Description 10/25/2022 Specialty [place] [address] Oscar Grigsby Rafael Social History Tobacco Use [...] Requirements: no Medication Reconciliation Discrepancies (compared to [facility] med list) -N/A Medication List: Current Outpatient [...] specialty services: Yes Patient accepted offer to grief counselor: select all, adherence/missed doses, cost of [...] to doctor discussed, reminder to refill or warp picker medication discussed, self-monitoring discussed, start medication [...] Social Assessment: Does patient have a primary healthcare receptionist: No Does patient have an emergency contact on file: Yes Does patient need referral to social media manager: No Does patient need referral to advocacy [...] were made at the appointment and that [facility] isproviding recommendations (summary located at top of note) for provider review and follow up. Oscar Grigsby RPH 10/25/22 2:21 PM documented in this encounter Plan of Treatment Not on file documented as of this encounter Visit Diagnoses Not on filedocumented in this encounter Care Teams Supervisor Roving Department Relationship Specialty Start Date End Date Sj Suazo MD [address] [facility] [address] [place] [address] PCP - General Obstetrics and Gynecology 04/19/22 documented as of this encounter
--- OUTSIDE RECORDS SUMMARY | 2023-12-24 08:28 | XMS_ITS | Encounter Summary ---
[place] [address] Care Team Providers Care Water Tender Name Role Phone Sj Suazo MD Primary [...] on filedocumented in this encounter Care Teams Water Tender Relationship Specialty Start Date End Date Sj Suazo MD [address] [place] [address] PCP - General Obstetrics and Gynecology 04/19/22 documented as of this encounter
--- OUTSIDE RECORDS SUMMARY | 2023-12-24 08:28 | XMS_ITS | Encounter Summary ---
Author Organization [facility] Address [facility] [place] [address] Care Team Providers Care Doctor Of Optometry Name Role Phone Sj Suazo MD Primary Care Provider [phone] Encounter Details Date Type Department Care Team (Late st Contact Info) Description 04/27/2023 10:00 AM EST Office Visit Dermatology at [facility] [address] [place] [address] Jaxon De La Fuente MD [facility] [address] Eczema, unspecified type Social History Tobacco Use [...] Other: N/A RTC: PRN []Note routed to legal secretary []Recall placed in scheduling system []Appointment [...] by: Jaxon De La Fuente MD Dermatology [facility] Staff electrical electronics engineers: Alexander Hernadez MD Dermatology [facility] * Alexander Hernadez MD - 04/27/2023 10:00 AM EST I was the supervising physician working with the Dermatology resident, Jaxon De La Fuente MD, in the care of this Dermatology patient in person. For the purposes of billing, the resident provided the care. I have reviewed the encounter note details and level of service. ALEXANDER HERNADEZ MD Staff Mental Health Case Manager Department of Dermatology [facility] documented in this encounter Plan of Treatment Not on file documented as of this encounter Visit Diagnoses Diagnosis Eczema, unspecified type documented in this encounter Care Teams Doctor Of Optometry Relationship Specialty Start Date End Date Sj Suazo MD [address] [facility],[address] [address] PCP - General Obstetrics and Gynecology 04/19/22 documented as of this encounter
--- OUTSIDE RECORDS SUMMARY | 2023-12-24 08:28 | XMS_ITS | Encounter Summary ---
Author Organization [facility] [place] [address] Care Team Providers Care Geometry Teacher Name Role Phone Sj Suazo MD Primary Care Provider Encounter Details Date Type Department Care Team (Late st Contact Info) Description 10/27/2022 [place] [address] Yvonne Augustin CMA Social History Tobacco Use [...] [x] Received an approval letter via fax subpoena server- duplicate request, not our department, we didn't submit the PA. [] Received a denial letter via fax subpoena server- duplicate request, not our department, we didn't submitthe PA. [] Received immunizations from an outside facility- immunizations entered in the chart, and the immunization report will be indexed in chart. [] Received labs from an outside facility- labs entered into the chart, and the lab report will be indexed in the chart. [] Went through our STPs in [facility] to see if approval or denial was [...] to the correct department que in fax subpoena server [] Received medical records for a patient that is not a DH patient [] verified information received on document in external fax subpoena server [] Non-DH documents [] inbasket message /waiting to hear back from the provider/provider pool documented in this encounter Plan of Treatment Not on file documented as of this encounter Visit Diagnoses Not on filedocumented in this encounter Care Teams Geometry Teacher Relationship Specialty Start Date End Date Sj Suazo MD [address] [facility],[place] [id number] PCP - General Obstetrics and Gynecology 04/19/22 documented as of this encounter
--- OUTSIDE RECORDS SUMMARY | 2023-12-24 08:28 | XMS_ITS | Encounter Summary ---
Author Organization [facility] [place] [address] Care Team Providers Care Emergency Management Specialist Name Role Phone Sj Suazo MD Primary Care Provider [phone] Reason for Visit * Reason Onset Date Comments Prior Authorization 01/31/2023 ruxolitinib 1.5 % Cream Encounter Details Date Type Department Care Team (Late st Contact Info) Description 01/31/2023 [place] [address] Shila Roach MA Prior Authorization (ruxolitinib 1.5 [...] PA Outcome: PA Denial [place] [address] DENIED: ruxolitinib 1.5 % Cream Case/Reference #: [id number] Additional Information from Insurance: * Telephone Encounter - Stacey Dean CMA - 01/31/2023 12:48 PM EST Images from the original note were not included. * Telephone Encounter - Shila Roach MA - 01/31/2023 10:30 AM ESTSummary: PA Request ruxolitinib 1.5 % Cream PA Submitted Submitted Date: Date Submitted: 01/31/2023 Medication Prior Authorization Patient: Jorge Luis Subramanian Patient : 1990 Insurance Company: [place] [employer] Sent via: [facility] Voss: [id number] Physician: Jaxon De La Fuente [...] for Dermatitis follow up. []Note routed to corporation secretary []Recall placed in scheduling system [x]Appointment [...] by: Jaxon De La Fuente MD Dermatology [facility] Patient seen and evaluated with staff pathology manager: Almas Jane MD Dermatology [facility] documented in this encounter Plan of Treatment Not on file documented as of this encounter Visit Diagnoses Not on filedocumented in this encounter Care Teams Emergency Management Specialist Relationship Specialty Start Date End Date Sj Suazo MD [address] [facility] [address] [place] [address] PCP - General Obstetrics and Gynecology 04/19/22 documented as of this encounter
--- OUTSIDE RECORDS SUMMARY | 2023-12-24 08:28 | XMS_ITS | Encounter Summary ---
[place] [address] Care Team Providers Care Senior Dynamics Crm Developer Name Role Phone Sj Suazo MD Primary Care Provider [phone] Reason for Visit * Reason Comments Prior Authorization Dupixent 300mg/2ml s opn Encounter Details Date Type Department Care Team (Late st Contact Info) Description 10/27/2022 Specialty [place] [address] Maribel Justin, HAND BOBBIN CLEANER Social History Tobacco Use Types Packs/Day Years [...] Luis Subramanian Patient : 1990 Patient Address: [address] [place] [address] (home) Medication Name: DUPIXENT 300 MG/2 ML SUBCUTANEOUS PEN INJECTOR Medication ID: [id number] Subscriber Insurance: [place] Medicaid Subscriber Insurance Comment: Phone: Fax: Physician: [...] MG/2 ML SUBCUTANEOUS PEN INJECTOR Medication ID: [id number] Case/Reference # : [id number], [id number] Denial Summary: Needs at least 10% BSA. Needs at least 1 month trial of tacrolimus (filled 10/25 per fax) Patient Notified of Denial: No Additional Information from insurance carrier. Please see below: None For any questions relating to this denial please reach out directly to your section's specialty pharmacist, or the specialty pharmacy team at [facility] Maribel Justin 10/27/22 11:25 AM documented in this encounter Plan of Treatment Not on file documented as of this encounter Visit Diagnoses Not on filedocumented in this encounter Care Teams Senior Dynamics Crm Developer Relationship Specialty Start Date End Date Sj Suazo MD [address] [facility],[address] [place] [address] PCP - General Obstetrics and Gynecology 04/19/22 documented as of this encounter
--- OUTSIDE RECORDS SUMMARY | 2023-12-24 08:28 | XMS_ITS | Encounter Summary ---
Author Organization [facility] Address [facility] [address] Care Team Providers Care Supervisor Properties Name Role Phone Sj Suazo MD Primary Care Provider Encounter Details Date Type Department Care Team (Late st Contact Info) Description 10/25/2022 Refill Dermatology at [facility] [address] [place] [address] Jaxon De La Fuente MD [facility] [address] [place] [address] Social History Tobacco Use Types Packs/Day Years [...] filedocumented in this encounter Care Teams Supervisor Properties Relationship Specialty Start Date End Date Sj Suazo MD [address] [facility] [address] PCP - General Obstetrics and Gynecology 04/19/22 documented as of this encounter
--- OUTSIDE RECORDS SUMMARY | 2023-12-24 08:28 | XMS_ITS | Encounter Summary ---
Author Organization [facility] Address [facility] [place] [address] Care Team Providers Care Salesforce Trainer Name Role Phone Sj Suazo MD Primary Care Provider Encounter Details Date Type Department Care Team (Late st Contact Info) Description 01/30/2023 11:00 AM EST Office Visit Dermatology at [facility] [address] [place] [address] Jaxon De La Fuente MD [facility] [address] [address] Dermatitis; Paronychia of fifth toe Social History [...] for Dermatitis follow up. []Note routed to trade union secretary []Recall placed in scheduling system [x]Appointment scheduled at checkout Scribe attestation: Caron Cronin [facility] has performed the documentation for this encounter in the presence of and acting as a scribe for Jaxon De La Fuente MD. I performed the above scribed service and agree with the accuracy of the documentation in this encounter. Reviewed and signed by: Jaxon De La Fuente MD Dermatology [facility] Patient seen and evaluated with staff electroplater automatic: Osman Jane MD Dermatology [facility] * Osman Jane MD - 01/30/2023 11:00 [...] toe documented in this encounter Care Teams Salesforce Trainer Relationship Specialty Start Date End Date Sj Suazo MD [address] [facility] 21 [place] [address] PCP - General Obstetrics and Gynecology 04/19/22 documented as of this encounter
--- OUTSIDE RECORDS SUMMARY | 2023-12-24 08:28 | XMS_ITS | Encounter Summary ---
[place] [address] Care Team Providers Care Liquid Loader Name Role Phone Sj Suazo MD Primary Care Provider Reason for Visit * Reason Comments Specialty Pharmacy Review Dupixent Encounter Details Date Type Department Care Team (Late st Contact Info) Description 10/25/2022 Specialty [place] [address] Conrado Mcgraw CPHT Social History Tobacco Use Types Packs/Day Years Used Date Smoking Tobacco: Never Sex and Gender Information Value Date Recorded Sex Assigned at Not on file Gender Identity Not on file Sexual Orientation Not on file documented as of this encounter Progress Notes * Conrado Mcgraw CPHT - 10/25/2022 11:59 PM EDT The [facility] has completed a benefits investigation for Jorge Luis Subramanian to review their eligibility to fill at [facility]. Per patient's medication list they are prescribedDupixent and the medication is able to be filled at the [facility]. The prior authorization was denied by the insurance on 10/27/22. documented in this encounter Plan of Treatment Not on file documented as of this encounter Visit Diagnoses Not on filedocumented in this encounter Care Teams Liquid Loader Relationship Specialty Start Date End Date Sj Suazo MD [address] [facility] [place] [address] PCP - General Obstetrics and Gynecology 04/19/22 documented as of this encounter
--- OUTSIDE RECORDS SUMMARY | 2023-12-24 08:29 | XMS_ITS | Encounter Summary ---
Author Organization [facility] Address [facility] [place] [address] Care Team Providers Care Physician Intensivist Name Role Phone Sj Suazo MD Primary Care Provider Encounter Details Date Type Department Care Team (Late st Contact Info) Description 10/25/2022 1:20 PM EDT Office Visit Dermatology at [facility] [address] [place] [address] Jaxon De La Fuente MD [facility] [place] [address] Dermatitis Social History Tobacco Use Types Packs/Day [...] months for eczema f/u []Note routed to clerk secretary []Recall placed in scheduling system []Appointment scheduled at checkout Scribe attestation: Caron Cronin [facility] has performed the documentation for this encounter in the presence of and acting as a scribe for Jaxon De La Fuente MD. I performed the above scribed service and agree with the accuracy of the documentation in this encounter. Reviewed and signed by: Jaxon De La Fuente MD Dermatology [facility] Patient seen and evaluated with staff personnel analyst: Angelia Finch MD Dermatology [facility] * Angelia Finch MD - 10/25/2022 1:20 [...] Angelia Finch MD ([place]), FAAD Staff Physician [facility] Dermatology documented in this encounter Plan of Treatment Not on file documented as of this encounter Visit Diagnoses Diagnosis Dermatitis Contact dermatitis and other eczema, due to unspecified cause documented in this encounter Care Teams Physician Intensivist Relationship Specialty Start Date End Date Sj Suazo MD [address] [facility] [address] [place] [address] PCP - General Obstetrics and Gynecology 04/19/22 documented as of this encounter
--- OUTSIDE RECORDS SUMMARY | 2023-12-24 08:29 | XMS_ITS | Encounter Summary ---
Author Organization [facility] Address [facility] [place] [address] Care Team Providers Care Supervisor Stitching Department Name Role Phone Diamond Cerrato HAND STONE POLISHER Primary Care Provider [phone] Reason for Visit * Reason Comments Patch Testing Encounter Details Date Type Department Care Team ([facility] Contact Info) Description 03/10/2015 9:30 AM EST Office Visit Dermatology at [facility] [address] [place] [address] Almas Jane MD [address] [facility] [address] Dermatitis (Primary Dx); Encounter for allergy testing [...] dermatitis but no report available; done at [facility]. Patient has been patch tested twice, reports [...] Almas Jane MD FAAD Section of Dermatology [facility] documented in this encounter Plan of Treatment Not on file documented as of this encounter Visit Diagnoses Diagnosis Dermatitis- Primary Contact dermatitis and other eczema, due to unspecified cause Encounter for allergy testing Diagnostic skin and sensitization tests documented in this encounter Care Teams Supervisor Stitching Department Relationship Specialty Start Date End Date Diamond Cerrato APRN PCP - General Family Medicine 02/05/15 05/21/16 documented as of this encounter
--- OUTSIDE RECORDS SUMMARY | 2023-12-24 08:29 | XMS_ITS | Encounter Summary ---
[place] [address] Care Team Providers Care Packing And Final Assembly Supervisor Name Role Phone Sj Suazo MD Primary [...] on filedocumented in this encounter Care Teams Packing And Final Assembly Supervisor Relationship Specialty Start Date End Date Sj Suazo MD [address] [place] [address] PCP - General Obstetrics and Gynecology 04/19/22 documented as of this encounter
--- OUTSIDE RECORDS SUMMARY | 2023-12-24 08:29 | XMS_ITS | Encounter Summary ---
Author Organization [facility] [place] [address] Care Team Providers Care Rn Staff Name Role Phone Diamond Cerrato LEAD MASSAGE THERAPIST Primary Care Provider [phone] Encounter Details Date Type Department Care Team ([facility] Contact Info) Description 04/12/[address] [facility] [address] [place] [address] Almas Jane MD [address] [facility] [place] [address] Social History Tobacco Use Types Packs/Day Years [...] but not limited to atrophy, dyspigmentation. ?? [place] clobetasol for 2-3 x per week for rescue with OB permission. ?? Avoid allergens as previously discussed ?? Recommend NBUVB phototherapy 3 x per week. Patient to contact Dr Rodrigez for follow-up , 1st Trimester Patient states [...] Systematic Reviews 2015, Issue 10. Art. No.: [id number]. DOI: 10.1002/17021598.[id number].pub3 This update adds more evidence showing no [...] incidental documented in this encounter Care Teams Rn Staff Relationship Specialty Start Date End Date Diamond Cerrato APRN PCP - General Family Medicine 02/05/15 05/21/16 documented as of this encounter
--- OUTSIDE RECORDS SUMMARY | 2023-12-24 08:29 | XMS_ITS | Encounter Summary ---
Author Organization [facility] Address [facility] [place] [address] Care Team Providers Care Applied Researcher Name Role Phone Sj Suazo MD Primary Care Provider Encounter Details Date Type Department Care Team (Late st Contact Info) Description 08/24/2022 9:20 AM EDT Office Visit Dermatology at [facility] [address] [place] [address] Gallito Heller MD [facility] [place] [address] Dermatitis Social History Tobacco Use Types Packs/Day [...] months for Eczema F/U []Note routed to vegetable loader machine operator []Recall placed in scheduling system [x]Appointment scheduled at checkout Scribe attestation: Jenna Augustin [facility] has performed the documentation for this encounter inthe presence of and acting as a scribe for Gallito Heller MD. I performed the above scribed service and agree with the accuracy of the documentation in this encounter. Reviewed and signed by: Gallito Heller MD Dermatology [facility] Patient seen and evaluated with staff industrial hygiene engineer: Lucas Mosley MD Dermatology [facility] * Lucas Mosley MD - 08/24/2022 9:20 [...] cause documented in this encounter Care Teams Applied Researcher Relationship Specialty Start Date End Date Sj Suazo MD [address] [facility] [address] [place] [address] PCP - General Obstetrics and Gynecology 04/19/22 documented as of this encounter
--- OUTSIDE RECORDS SUMMARY | 2023-12-24 08:29 | XMS_ITS | Encounter Summary ---
Author Organization [facility] Address [facility] [place] [address] Care Team Providers Care Loader Operator Supervisor Name Role Phone Diamond Cerrato TIMBO Primary Care Provider +1- [phone] Encounter Details Date Type Department Care Team (Late Contact Info) Description 03/12/2015 1:15 PM EST Office Visit Dermatology at [facility] [address] [place] [address] Almas Jane MD [address] [facility] [place] [address] Dermatitis (Primary Dx); Allergic contact dermatitis Social [...] no report available; done at [facility]. Patient has been patch tested twice, [...] dyes, concrete, epoxy hardeners, and photographic color maker formulator. Chromate is also found in cement (not dried) and metal plating and is a cause of occupational dermatitis inbricklayers, construction workers, and metal workers. Less Likely [place] (II) chloride hexahydrate is a metal used with other metals to make metal alloys. Because cobalt and nickel can be found in many of the same metal products, allergies to both metals can develop. To prevent this, consider wearing jewelry made of frida silver or other reinaldo metals, rather than costume jewelry. [place] is frequently combined with nickel, and this [...] MD FAAD Section of Dermatology [facility] documented in this encounter Plan of Treatment Not on file documented as of this encounter Visit Diagnoses Diagnosis Dermatitis- Primary Contact dermatitis and other eczema, due to unspecified cause Allergic contact dermatitis Contact dermatitis and other eczema, due to unspecified cause documented in this encounter Care Teams Loader Operator Supervisor Relationship Specialty Start Date End Date Diamond Cerrato APRN PCP - General Family Medicine 02/05/15 05/21/16 documented as of this encounter
--- OUTSIDE RECORDS SUMMARY | 2023-12-24 08:29 | XMS_ITS | Encounter Summary ---
[place] [address] Care Team Providers Care Physician Support Coordinator Name Role Phone Sj Suazo MD Primary [...] on filedocumented in this encounter Care Teams Physician Support Coordinator Relationship Specialty Start Date End Date Sj Suazo MD [address] [place] [address] PCP - General Obstetrics and Gynecology 04/19/22 documented as of this encounter
--- OUTSIDE RECORDS SUMMARY | 2023-12-24 08:29 | XMS_ITS | Encounter Summary ---
Author Organization [facility] Address [facility] [place] [address] Care Team Providers Care Private Chef Name Role Phone Diamond Cerrato Vikki IZQUIERDO Primary Care Provider +1- [phone] Encounter Details Date Type Department Care Team (Late st Contact Info) Description 04/05/2015 2:00 PM EST Office Visit Dermatology at [facility] [address] [place] [address] Almas Jane MD [address] [facility] [place] [address] Dermatitis Social History Tobacco Use Types Packs/Day [...] or concerns, please call the office at [phone]. If it is after 5PM, or a holiday or weekend, please call [phone] and ask for the Oscillograph Technician on-call. documented in this encounter Progress Notes * Octavio Chisholm LPN - 04/05/2015 11:54 AM EST Visit For: punch biopsy History of Present Illness Jorge Luis Subramanian is a 24 y.o. 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 Patient has been patch tested twice, [...] specific queries. Examination Standby: OCTAVIO S WEST, ALL AROUND PRESSER Pain 0/10. Mood is appropriate. Well [...] Almas Jane MD FAAD Section of Dermatology [facility] documented in this encounter Plan of Treatment Not on file documented as of this encounter Procedures Procedure Name Priority Date/Time Associated Diagnosis Comments SURGICAL PATHOLOGY REPORT Routine 04/05/2015 12:06 PM EST SPECIMEN TO PATHOLOGY Routine 04/05/2015 12:06 PM EST Dermatitis documented in this encounter Results * Surgical Pathology Report (04/05/2015 12:06 PM EST) Final Diagnosis [id number] ?Location: [facility] The signing pathologist has (i) [...] Bisected. (T1) ??aml 04/07/2015 10:22 AM EST [facility] SPECIMEN FROM SKIN / Unknown 04/05/2015 12:06 PM EST 04/05/2015 12:06 PM EST Almas Jane MD PATHOLOGY/CYTOLOGY O RDER[facility] [place] [address] * Specimen to Pathology (surgical or derm) (04/05/2015 12:06 PM EST) AP Specimen 04/05/2015 12:0 6 PM EST 04/05/2015 3:27 PM EST Narrative [facility] - 04/05/2015 3:27 PM EST Specimen requisition ordered. ??Separate Pathology report to follow Resulting Agency Comment Spec In Lab Almas Jane MD PATHOLOGY/CYTOLOGY O RDER[facility]ATHA [facility] documented in this encounter Visit Diagnoses Diagnosis Dermatitis Contact dermatitis and other eczema, due to unspecified cause documented in this encounter Care Teams Private Chef Relationship Specialty Start Date End Date Diamond Cerrato APRN PCP - General Family Medicine 02/05/15 05/21/16 documented as of this encounter
--- OUTSIDE RECORDS SUMMARY | 2023-12-24 08:29 | XMS_ITS | Encounter Summary ---
Author Organization [place] [address] Care Team Providers Care Spreader Name Role Phone Sj Suazo MD Primary Care Provider Reason for Referral * Consultation (Routine) - Closed Specialty Diagnoses / Procedures Referred By Germaine ley Referred To Contact Dermatology Diagnoses Other local lupus erythematosus Gissell Quick PA [address] [place] [address] [facility] Dermatology [address] [place] [address] Referral ID Status Reason Start Date Expiration Date V isits Requested Visits Authorized [id number] Closed Consult, Test & Treat PCP Updated and/or Approved 04/19/2022 04/19/2023 6 6 Encounter Details Date Type Department Care Team (Latest Contact Info) Description 04/19/2022 Transcribe Orders eDH Incoming Referrals [phone] Gissell Quick PA [address] [place] [address] Other local lupus erythematosus Social [...] erythematosus documented in this encounter Care Teams Spreader Relationship Specialty Start Date End Date Sj Suazo MD [address] [facility],[address] [place] [id number] PCP - General Obstetrics and Gynecology 04/19/22 documented as of this encounter
--- OUTSIDE RECORDS SUMMARY | 2023-12-24 08:29 | XMS_ITS | Encounter Summary ---
Author Organization [facility] Address [facility] [place] [address] Care Team Providers Care Fisher Sponge Hooking Name Role Phone Sj Suazo MD Primary Care Provider Reason for Visit * Consultation (Routine) - Closed Specialty Diagnoses / Procedures Referred By Germaine ley Referred To Contact Dermatology Diagnoses Other local lupus erythematosus Gissell Quick, [address] [place] [address] [facility] Dermatology [address] [place] [address] Referral ID Status Reason Start Date Expiration Date V isits Requested Visits Authorized [id number] Closed Consult, Test & Treat PCP Updated and/or Approved 04/19/2022 04/19/2023 6 6 Encounter Details Date Type Department Care Team (Late st Contact Info) Description 07/26/2022 4:00 PM EDT Office Visit Dermatology at [facility] [address] [place] [address] Gallito Heller MD [facility] [address] [place] [address] Dermatitis; Neoplasm of unspecified behavior [...] for rash follow up. []Note routed to paralegal legal secretary []Recall placed in scheduling system [x]Appointment scheduled at checkout Scribe attestation: CRUZ Enciso has performed the documentation for this encounter in the presence of and acting as a scribe for Gallito Heller MD. I performed the above scribed service and agree with the accuracy of the documentation in this encounter. Reviewed and signed by: Gallito Heller MD Dermatology [facility] Patient seen and evaluated with staff balance wheel arm burnisher: Nikki Katz MD Department of Dermatology [facility] * Nikki Katz MD - 07/26/2022 4:00 [...] physician's note. Nikki Katz MD Staff Physician [facility] * Gallito Heller MD - 07/26/2022 [...] Report (07/26/2022 4:56 PM EDT) Final Diagnosis [id number] ? Location: [facility] The signing pathologist has (i) examined the relevant preparation(s) for the specimen(s) and (ii) rendered or confirmed the diagnosis(es). . ?Surgical Pathology DIAGNOSIS A - Left first toe, skin punch biopsy: - Spongiotic dermatitis (see discussion) Electronically signed by: ?Kacie Albert MD Verified: ??08/09/2022 17:07 ??Dermatopatholog ist Performed at: ??-[facility] Dept. of Pathology, [place] [address] Application Processor: Narcisa Mckeon MD, FCAP, ??CLIA Certificate: [id number] DISCUSSION Sections show acanthosis, spongiosis, parakeratosis, exocytosis [...] labeled A1. ??sdy 08/09/2022 5:07 PM EDT [facility] SPECIMEN FROM SKIN / Unknown 07/26/2022 4:56 PM EDT 07/26/2022 4:56 PM EDT Gallito Heller MD PATHOLOGY/CYTOLOGY O [facility] [place] [address] [facility] [place] [address] * Specimen to Pathology (07/26/2022 4:56 PM EDT) AP Specimen 07/26/2022 4:56 PM EDT 07/26/2022 4:56 PM EDT Narrative [facility] - 07/26/2022 4:56 PM EDT Specimen requisition ordered. ??Separate Pathology report to follow Nikki Katz MD PATHOLOGY/CYTOLOGY O RDAKIKO Performing Organization Address City/[facility]/ZIP Co de Phone Number [facility] [place] [address] documented in this encounter Visit Diagnoses Diagnosis Dermatitis Contact dermatitis and other eczema, due to unspecified cause Neoplasm of unspecified behavior of bone, soft tissue, and skin documented in this encounter Care Teams Fisher Sponge Hooking Relationship Specialty Start Date End Date Sj Suazo MD [address] [facility] [address] [place] [address] PCP - General Obstetrics and Gynecology 04/19/22 documented as of this encounter
--- OUTSIDE RECORDS SUMMARY | 2023-12-24 08:29 | XMS_ITS | Encounter Summary ---
Author Organization [facility] Address [facility] [place] [address] Care Team Providers Care Boat Camp Operator Name Role Phone Shaun Figueroa MD Primary Care Provider [phone] Encounter Details Date Type Department Care Team (Late st Contact Info) Description 01/01/2015 3:00 PM EDT Office Visit Dermatology at [address] [address] Geo Rodrigez MD [address] [facility] [place] [address] Allergic contact dermatitis Social History Tobacco Use [...] cause documented in this encounter Care Teams Boat Camp Operator Relationship Specialty Start Date End Date Shaun Figueroa MD [address] [place] [address] PCP - General 02/15/10 02/04/15 documented as of this encounter
--- OUTSIDE RECORDS SUMMARY | 2023-12-24 08:29 | XMS_ITS | Encounter Summary ---
Author Organization [facility] Address [facility] [place] [address] Care Team Providers Care Marketing Copywriter Name Role Phone Diamond Cerrato SECURITY THREAT ANALYST Primary Care Provider [phone]- [phone] Reason for Visit * Reason Comments Patch Testing Encounter Details Date Type Department Care Team ([facility] Contact Info) Description 03/08/2015 11:30 AM EST Office Visit Dermatology at [facility] [address] [place] [address] Almas Jane MD [address] [facility] [place] [address] Encounter for allergy testing (Primary Dx) Social [...] dermatitis but no report available; done at [facility]. Patient has been patch tested twice, reports whole body hives after both times and unable to read results. Interval changes to Medications and Medical, Family and Social Histories (including alcohol and tobacco use) Since Last Visit 01-26-15: No significant interval history. Allergies Allergies Allergen Reactions ??? Latex ??? Septra [Sulfamethoxazole-Trimethoprim] Medications Reconciled as above. 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
--- OUTSIDE RECORDS SUMMARY | 2023-12-24 08:29 | XMS_ITS | Encounter Summary ---
Author Organization [facility] Address [facility] [place] [address] Care Team Providers Care Fence Gate Assembler Name Role Phone Sj Suazo MD Primary Care Provider Encounter Details Date Type Department Care Team (Late st Contact Info) Description 07/29/2022 Notes Only Dermatology at [facility] [address] [place] [address] Airam Andrews MD [facility] [address] [place] [address] Social History Tobacco Use Types Packs/Day Years Used Date Smoking Tobacco: Never Sex and Gender Information Value Date Recorded Sex Assigned at Not on file Gender Identity Not on file Sexual Orientation Not on file documented as of this encounter Progress Notes * Airam Andrews MD - 07/29/2022 11:26 AM EDT Unclaimed Property Manager Resident Note: - Received Transfer Center Call from Dr. Montanez at [facility] - Pt known to Dermatology, last seen [...] on filedocumented in this encounter Care Teams Fence Gate Assembler Relationship Specialty Start Date End Date Sj Suazo MD [address] [place] [address] PCP - General Obstetrics and Gynecology 04/19/22 documented as of this encounter
--- OUTSIDE RECORDS SUMMARY | 2023-12-24 08:29 | XMS_ITS | Encounter Summary ---
Author Organization [facility] [place] [address] Care Team Providers Care Seamless Tube Drawer Name Role Phone Diamond Cerrato TIMBO Primary Care Provider [phone] Reason for Visit * Reason Comments Rash * Consultation (Routine) - Closed Specialty Diagnoses / Procedures Referred By Contac t Referred To Contact Dermatology Diagnoses Allergic dermatitis ? PATCH TESTING- ALLERGIC DERMATITIS, SUSPECT DYE ALLERGIES, PERHAPS TO PARAPHENYLENEDIAMINE Geo Rodrigez MD [address] [facility], [place] [address] Almas Jane MD [address] [facility] [place] [address] Referral ID Status Reason Start Date Expiration Date V isits Requested Visits Authorized [id number] Closed Consult, Test & Treat Connection Center 01/04/2015 01/04/2016 6 6 Encounter Details Date Type Department Care Team (Late st Contact Info) Description 02/05/2015 10:00 AM EST Office Visit Dermatology at [facility] [address] [place] [address] Almas Jane MD [address] [facility] [place] [address] Allergic contact dermatitis (Primary Dx) Social History [...] to the patient???s skin as directed byyour seed buyer. 3. Moisten the ???bandages?? (these can be [...] Referral: 01/04/2015 Referred by: Geo Rodrigez Md [place] [id number] Chief Complaint: Rash History of Present Illness Jogre Luis Subramanian is a 24 y.o. female. [...] dermatitis but no report available; done at [facility]. 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 Bleach baths ?? Pathology report from [facility] Follow-up: in 4 weeks for patch test or sooner as needed for worsening or new dermatitis. I am documenting this encounter acting as the scribe for and in the presence of Dr. Jane: AYNA PRIETO LPN I performed the above scribed service and agree with the accuracy of the documentation in this encounter. Almas Jane MD FAAD Section of Dermatology [facility] documented in this encounter Plan of Treatment Not on file documented as of this encounter Visit Diagnoses Diagnosis Allergic contact dermatitis- Primary Contact dermatitis and other eczema, due to unspecified cause documented in this encounter Care Teams Seamless Tube Drawer Relationship Specialty Start Date End Date Diamond Cerrato APRN PCP - General Family Medicine 02/05/15 05/21/16 documented as of this encounter
--- OUTSIDE RECORDS SUMMARY | 2023-12-24 08:29 | XMS_ITS | Encounter Summary ---
Author Organization [facility] [place] [address] Care Team Providers Care Brokerage Purchase And Sale Clerk Name Role Phone Shaun Figueroa MD Primary Care Provider [phone] Reason for Visit * Reason Comments Dermatitis Encounter Details Date Type Department Care Team (Late st Contact Info) Description 12/03/2014 9:45 AM EDT Office Visit Dermatology at [address] [place] [address] Geo Rodrigez MD [address] [facility] [place] [address] Allergic contact dermatitis Discharge Disposition: Home Social [...] from the original note were not included. [facility] Dermatitis: After Your Visit Your Care Instructions [...] help for plant rashes. ?? Try an hfts-rbw-tjawnhg antihistamine such as diphenhydramine (Benadryl) or chlorpheniramine [...] more? Visit our health information library at [email or web address] You can also view health information on [employer], your personal patient account. Log in or sign up today. Enter F270 in the search box to learn more about Dermatitis: After Your Visit. ?? [id number] [employer]. Care instructions adapted under license by [facility]. This care instruction is for use with your licensed healthcare professional. If you have questions about a medical condition or this instruction, always ask your healthcare professional. [employer] disclaims any warranty or liability for your use of this information. Content Version: 10.4.767049; Current as of: June 04, 2013 documented in this encounter Progress Notes * Geo Rodrigez MD - 12/03/2014 10:23 AM EDT Problem: Dermatitis. Jorge Luis follows up and is now 24. I last saw her seven years ago. Since then she has and was living in [place] and while there developed a vesicular dermatitis [...] told to avoid dyed socks. She works [employer] and did so in [place] as well. She has known allergies to SEPTRA and LATEX. She states that since March 2014 things were going fairly well, but just during the last couple of weeks things have flared up again out of the blue very badly. She just recently started working at [employer] and just recently bought some new dark socks to wear. The patient states that a biopsy was done in [place] and it was consistent with allergic contact [...] recommended that she be seen by Dr. Conner for consideration of patch testing. Perhaps just [...] cause documented in this encounter Care Teams Brokerage Purchase And Sale Clerk Relationship Specialty Start Date End Date Shaun Figueroa MD [address] [place] [place] [address] PCP - General 02/15/10 02/04/15 documented as of this encounter
--- OUTSIDE RECORDS SUMMARY | 2023-12-24 08:29 | XMS_ITS | Encounter Summary ---
Author Organization [facility] Address [facility] [place] [address] Care Team Providers Care Art Museum Docent Name Role Phone Diamond Cerrato ELECTRICIAN TECHNICIAN Primary Care Provider [phone] Reason for Visit * Reason Comments Follow-up Encounter Details Date Type Department Care Team ([facility] Contact Info) Description 03/31/2015 11:15 AM EST Office Visit Dermatology at [facility] [address] [place] [address] Almas Jane MD [address] [facility] [address] Dermatitis (Primary Dx) Social History Tobacco Use Types Packs/Day Years Used Date Smoking Tobacco: Never Sex and Gender Information Value Date Recorded Sex Assigned at Not on file Gender Identity Not on file Sexual Orientation Not on file documented as of this encounter Patient Instructions * Patient Instructions* aYna Slater LPN - 03/31/2015 11:40 AM EST [...] to the patient???s skin as directed byyour celery packer. 3. Moisten the ???bandages?? (these can be [...] to be ACD currently using clobetasol, Bag [place] and Vaseline who reports worsening - flaring [...] dermatitis but no report available; done at [facility]. Patient has been patch tested twice, reports whole body hives after both times and unable to read results. FREDERIC patch testing Feb 2015 showed positives to colophonium and cobalt and equivocal reactions to Methyldibromo glutaronitrile/phenoxyethanol. Biopsy results were requested from [facility] but as of Mar 2015 were not received by [facility]. Interval [...] Favor ACD with Id reaction.Pathology report from [facility] has not been received. Counseled: eczema v [...] for rebiopsy of patient. Pathology report from [facility]. Follow-up: based on pathology report from [place]. I am documenting this encounter acting as the scribe for and in the presence of Dr. Jane: YANA PRIETO LPN I performed the above scribed service and agree with the accuracy of the documentation in this encounter. Almas Jane MD FAAChris Section of Dermatology [facility] documented in this encounter Plan of Treatment Not on file documented as of this encounter Visit Diagnoses Diagnosis Dermatitis- Primary Contact dermatitis and other eczema, due to unspecified cause documented in this encounter Care Teams Art Museum Docent Relationship Specialty Start Date End Date Diamond Cerrato APRN PCP - General Family Medicine 02/05/15 05/21/16 documented as of this encounter
== END 2023-12-24 08:27 | disposition home or self-care (01) ==
LOC: NCHCN 08:26
PROVIDERS: PCP Family Medicine; Visit Provider Family Medicine
DX: N39.0 Urinary tract infection, site not specified (principal)
CPT/HCPCS: 87086

== ENCOUNTER 2023-12-27 06:57 | Day surgery (SDC) | payer OTHER, SELFPAY ==
[2023-12-27] VITALS (17 sets, daily range): BP systolic 92–136; BP diastolic 37–69; PULSE 77–107; RESP 15–27; TEMP 36.2–36.7; O2SAT 94–100; BMI 43.1
[2023-12-27] MEDS: Lactated Ringers 1,000 ML 80 ML IV (06:45)
--- NOTE | 2023-12-27 06:53 | W.ANESPRE ---
General Info Date of Service Date Performed: 12/27/23 Height: 5 ft 2 in Weight: 107 kg Body Mass Index (BMI): 43.1 Surgical Procedure: Operation Date: 12/27/23 07:40 Proposed Procedure Side Surgeon p Cystoscopy/Possible Laser/Retrograde/Ureteroscopy Bilateral Craig Haley MD Meds Allergies and Home Medications Allergies Allergy/AdvReac Type Severity Reaction Status Date / Time sulfamethoxazole (From Allergy Severe Hives Verified 12/27/23 06:33 ) trimethoprim (From ) Allergy Severe Hives Verified 12/27/23 06:33 Latex, Natural Rubber Allergy Intermediate Swelling/Ed Verified 12/27/23 06:33 alonso Home Medication ?Medication ?Instructions ?Recorded tamsulosin 0.4 mg capsule 0.4 mg PO HS 12/26/23 Current Visit Medications: Current Medications Generic Name Dose Route Start Last Admin Trade Name Freq PRN Reason Stop Dose Admin Ringer's Solution 1,000 mls @ 80 mls/hr 12/27/23 06:00 12/27/23 06:45 IV 01/25/24 23:59 80 mls/hr INFUSION JULIA Administration Cefazolin Sodium/Dextrose 2 gm in 50 mls @ 100 mls/hr 12/27/23 06:00 Ancef Duplex IVPB 12/27/23 16:00 PREOP JULIA IV Miscellaneous Supplies 1 each 12/27/23 06:00 Iv Access IV 01/25/24 23:59 DIRECTED JULIA Sodium Chloride 0 ml 12/27/23 06:00 Normal Saline Flush 10 Ml Syr IV 01/25/24 23:59 PRN PRN Sodium Chloride 0 ml 12/27/23 06:00 Normal Saline 10 Ml Vial IJ 01/25/24 23:59 DIRECTED PRN Sterile Water 0 ml 12/27/23 06:00 Water,Injection,Sterile 10 Ml Vial IJ 01/25/24 23:59 DIRECTED PRN PFSH Active Problems Active Problems: Problem Status Onset Code Gross hematuria Acute R31.0 Leg wound, left Acute S81.802A Kidney stone Chronic N20.0 Medical History Medical History Kidney stone Medical History Comments:: Pt states she wakes up swinging from adenoidectomy Surgical History Surgical History H/O lithotripsy Hx of wisdom tooth extraction History of adenoidectomy Tobacco Smoking/Tobacco Use Status: Never Alcohol Alcohol Intake: current Alcohol intake frequency: a few times a week Alcohol type: beer and hard liquor Substance Use Substance use: Occasionally Substance use type: marijuana Details: pt states she smokes it, close to a week ago Vital Signs and Lab Results Vital Signs Most Recent Vital Signs in EMR: Most Recent Vital Signs Temp Pulse Resp BP Pulse Ox 36.3 C L 107 H 16 136/69 97 12/27/23 06:20 12/27/23 06:20 12/27/23 06:20 12/27/23 06:20 12/27/23 06:20 Lab Results Blood Type / Crossmatch: No Data to Display Complete Blood Count: No Data to Display Complete Metabolic Panel: No Data to Display Liver Function Panel: No Data to Display Coagulation Panel: No Data to Display Cardiac Panel: No Data to Display Arterial Blood Gas: No Data to Display Venous Blood Gas: No Data to Display Pancreas Panel: No Data to Display Thyroid Panel: No Data to Display Infectious Disease: No Data to Display Blood Cultures: No Data to Display Toxicology Panel: No Data to Display Panel: No Data to Display Anesthesia Assessment and Plan Anesthesia History Personal History: No History of Anesthesia Complications Family History: No Family History of Anesthesia Complications Exercise Tolerance Exercise Tolerance: Metabolic Equivalents>4 Pertinent Negatives Pertinent Negatives: No Symptoms of GERD Cardiac & Pulmonary Exam Cardiac Exam: Normal S1/S2 Heart Sounds Pulmonary Exam: Clear Bilateral Breath Sounds Implantable Cardiac Device Does patient have a Pacemaker or an ICD?: No Airway Exam Known Difficult Airway: No Mallampati Class: 1 Mouth Opening: Normal (> 3cm) Thyromental Distance: Greater than 3 cm Neck Range of Motion: Full ROM Neck Circumference: Normal Teeth Condition: Normal Dentition ASA Classification ASA Score: ASA 2 Emergency Case?: No NPO Status NPO Status: NPO Clears >2 hours, Solids >8 hours Status Status: Negative HCG Anesthesia Plan Resuscitation Status: Full Code Anesthesia Technique: General Anesthesia Airway Planned: LMA Monitors Used: Standard Monitors
--- NOTE | 2023-12-27 06:56 | HPE_ITS ---
Date of service: 12/27/23 Time of Service: 06:57 Assessment and Plan Assessment and plan (1) Gross hematuria: Status: Acute (2) Kidney stone: Assessment and plan: We will move ahead with cystoscopy and bilateral retrograde pyelograms to investigate her gross hematuria. We will be prepared to do ureteroscopy and possible holmium laser lithotripsy if we identify stones in the ureters. Likewise, we will be prepared to biopsy or resect any abnormalities we identified in the bladder. History of Present Illness History of Present Illness Chief Complaint: Hematuria Narrative: This is a 33-year-old woman who has a history of kidney stones. About 2 years ago, she developed right renal colic due to an obstructing right ureteral stone. She underwent ureteroscopy and holmium laser lithotripsy of her stone. We also treated a large right lower pole stone. Her stone analysis demonstrated a mixed calcium stones. She comes in today with a 2-week history of gross hematuria and a sensation of having difficulty starting her urinary stream. She does have mixed urinary incontinence. We have evaluated her with a renal ultrasound which showed bilateral lower pole ureteral stones. She presents today for cystoscopy and bilateral retrograde pyelogram to complete her hematuria workup. Review of Systems Narrative: No fevers or chills No vision change or dysphasia No diabetes or thyroid dysfunction No shortness of breath, cough or hemoptysis No chest pain or palpitations No nausea, vomiting, hepatitis, ulcers, jaundice No seizures, strokes or peripheral neuropathy No bleeding disorders or anemia No gout PFSH All Active Problems Gross hematuria (Acute) Leg wound, left (Acute) Kidney stone (Chronic) Medical History Kidney stone Surgical History H/O lithotripsy Hx of wisdom tooth extraction History of adenoidectomy Social History Smoking/Tobacco Use Status: Never Smoking risk assessment performed?: Yes Alcohol Intake: current Alcohol Intake frequency: a few times a week Alcohol type: beer and hard liquor Drug use: Occasionally Substance use type: marijuana Details: pt states she smokes it, close to a week ago Housing: apartment Do you feel safe at home: Yes Do you feel safe in your relationship?: Yes Meds Allergies and Home Medications Allergies Allergy/AdvReac Type Severity Reaction Status Date / Time sulfamethoxazole (From Allergy Severe Hives Verified 12/27/23 06:33 Septra) trimethoprim (From ) Allergy Severe Hives Verified 12/27/23 06:33 Latex, Natural Rubber Allergy Intermediate Swelling/Ed Verified 12/27/23 06:33 alonso Home Medications ?Medication ?Instructions ?Recorded ?Confirmed ?Type tamsulosin 0.4 mg capsule 0.4 mg PO HS 12/26/23 12/27/23 History Exam Const General: cooperative Neck Neck: supple Resp Effort & Inspection: normal respiratory effort Auscultation: clear to auscultation bilaterally Cardio Rate: regular rate Rhythm: regular rhythm GI Palpation: soft and no masses Neuro General: patient alert, patient awake and patient oriented x3 Results Labs Labs: RUN DATE: 12/27/23 [facility] PAGE 1 RUN TIME: [address] RUN USER: [place] [address] Leonila Busch MD,PhD PATIENT REPORT PATIENT: Jorge Luis Davila LOC: [facility] U #: [id number] /SX: 1990 F ROOM: RE01/05/[address]: SOFI BRADSHAW MD STATUS: [facility] BED: DIS: SPEC #: [id number] SHE: 01/05/22 STATUS: COMP REQ #: [id number] RECD: 01/05/[address]: SOFI BRADSHAW MD ENTERED: 01/05/[address]: FAX #: ORDERED: Stone Anaylsis QUERIES: Source: Right Ureter Test Result Flag Reference Verified Kidney Stone Analysis Source: Right Ureter 01/12/22 Interpretation See Comment 01/12/22 50% Calcium oxalate monohydrate 30% Calcium phosphate (apatite) 20% Calcium oxalate dihydrate Test Performed by: [facility] [address] [id number] Promotional Advertising Assistant: Gabriel Browne M.D. Ph.D.; CLIA# [id number] Patient: LolaDylanie R LABORATORY Acct#[id number] Unit#[id number] Last Vital Signs Temp 36.3 C L 12/27/23 06:20 Pulse 107 H 12/27/23 06:20 Resp 16 12/27/23 06:20 BP 136/69 12/27/23 06:20 Pulse Ox 97 12/27/23 06:20 Time Spent Time spent with Patient: <40 minutes Time was spent: other
[2023-12-27] MEDS: ceFAZolin 2 GM/50 ML BAG IVPB (07:49)
[2023-12-27] MEDS: Omnipaque 300 MG/ML 50 ML BTL (08:04)
[2023-12-27] MEDS: Lidocaine 2% Jelly 6 ML SYR (08:04)
--- NOTE | 2023-12-27 08:17 | BLADDER_PTH ---
PATIENT: Jorge Luis Davila LOC: [facility] U#:[id number] AGE/SX: 33/F ROOM: RE12/27/[address]: Craig Haley MD : 1990 BED: DIS: 12/27/2023 SPEC #: [id number] RECD: 12/27/23 13:01 STATUS: JAYLEN RE #: [id number] SHE: 12/27/23 08:[address]: Craig Haley DEPT: Surgical Specimen RECD BY: Cristina Figueroa ENTERED: 12/27/23 13:02 SP TYPE: Bladder OTHR DR: Ben Ryan Tissues: 1 - BLADDER BIOPSY Procedures: GROSS AND MICRO LEVEL 4 Comments: [id number] (FAXED HX NOTES TO DR TAVERA @ [facility] 01/03/24)
--- NOTE | 2023-12-27 08:25 | DI.RAD_ITS ---
Exam(s) XR RETROGRADE IN OR EXAM: XR RETROGRADE IN OR CLINICAL HISTORY: gross haematuria, bilateral stones TECHNIQUE: 2D and realtime digital imaging was performed. CONTRAST MATERIAL: Refer to procedure report. COMPARISON: CT CT ABDOMEN PELVIS WO/W from 09/14/2023 FINDINGS: Fluoroscopy was provided for Dr. Haley during the performance of a retrograde evaluation of the dacia l collecting system. Please refer to the procedure report for complete details. Ka,r=16.4 mGy IMPRESSION: RADIATION DOSE DELIVERED: 0.0 6969.6 0
--- NOTE | 2023-12-27 08:39 | W.PM.DSUDISC ---
Date of service: 12/27/23 Time of Service: 08:39 Discharge Plan Disposition Patient Disposition: Home Condition: Stable Discharge Details Reason For Visit: cystoscopy Attending Provider: Craig Haley Primary Care Provider: Ben Ryan Home Meds and New Rx's Prescriptions: No Action tamsulosin 0.4 mg capsule 0.4 mg PO HS Discharge Instructions Additional Instructions: Follow up with me in 1 to 2 weeks to review the bladder biopsy results Activity:: Activity as Tolerated Shower/Bathe:: 24 hours Diet:: As Tolerated Discharge Orders Discharge Orders: Discharge Order (Routine); Ordered 12/27/23 Ordered By: Craig Haley DS: Diagnosis Discharge Diagnosis (1) Gross hematuria: Status: Acute (2) Kidney stone:
--- NOTE | 2023-12-27 08:49 | W.PM.OP ---
Date of service: 12/27/23 Time of Service: 08:49 Operative Note Operative Note DATE OF PROCEDURE: 12/27/23 PRE-OP DIAGNOSIS: Gross hematuria POST-OP DIAGNOSIS: same PROCEDURE: Cystoscopy, bilateral retrograde pyelogram, bladder biopsy with fulguration ANESTHESIA TYPE: Local By Surgeon and General:No Airway Refer to Anesthesia Record ESTIMATED BLOOD LOSS: 5 PATHOLOGY: other (Bladder biopsies) COMPLICATIONS: None Patient was transported to: PACU Patient's condition: stable Implants: None Indications: This is a 33-year-old woman who has a history of kidney stones. About 2 years ago, one of her right sided kidney stones migrated to the upper ureter. She was treated with ureteroscopy and holmium laser lithotripsy of the obstructing stone. We placed a ureteral stent and then went back for a second procedure to treat a larger lower pole stone on the right. We have never treated the smaller lower pole stones on the left. She is now having gross hematuria but no flank pain. She has an urge to void and has to strain to urinate. She has been evaluated with a renal ultrasound which showed no hydronephrosis but bilateral lower pole kidney stones. She presents for cystoscopy and retrograde pyelogram to complete her hematuria workup Findings: No ureteral lesions Erythematous mucosa in the bladder Procedure Description: The patient was given antibiotics and brought to the operating room on 12/27/2023. After successful induction of general anesthesia, she was placed in the dorsal lithotomy position. Her genitalia was prepped and draped. 2% Xylocaine jelly was instilled into the urethra to act as a local anesthetic. A 22 Ukrainian rigid cystoscope was passed through the urethra into the bladder. The bladder was inspected with a 30 degree lens. Both ureteral orifices appeared normal with no blood coming from either side. Each orifice was cannulated with a 5 Ukrainian access catheter. Retrograde pyelograms were obtained by injecting Omnipaque through the access catheter under fluoroscopic guidance. No filling defects were seen throughout the length of each ureter. Both sides drained promptly on a 5-minute drainage film. The remainder the bladder was inspected using both a 30 and a 70 degree lens. Along the posterior bladder wall, there was erythematous mucosa that appeared flat. There was no papillary or nodular component to this erythematous mucosa. I took multiple biopsies of the mucosa using cold cup biopsy forceps. I then cauterized the biopsy sites using bipolar Bugbee. The biopsies were sent to pathology for permanent section. The bladder was then emptied and the cystoscope was withdrawn. The patient tolerated this procedure well with no complications.
[2023-12-27] MEDS: Phenazopyridine 200 MG TAB PO (09:24)
--- NOTE | 2023-12-27 10:24 | W.ANESPOSTOP ---
Postoperative Evaluation Date, Time and Location Date Performed: 12/27/23 Time Performed: : Patient Location: Other (Phone call) Vital Signs Most Recent Imported Vital Signs: Most Recent Vital Signs Temp Pulse Resp BP Pulse Ox 36.3 C L 77 16 98/43 L 100 12/27/23 09:33 12/27/23 09:33 12/27/23 09:33 12/27/23 09:33 12/27/23 09:33 Pain Score Most Recent Pain Score: Most Recent Pain Score Pain Level 0 12/27/23 09:33 Assessment Mental Status: Awake (Alert & Oriented to Patient Baseline) Airway and Respiratory Function: Patent airway with normal (patient baseline) respiratory exam Cardiovascular Function: Hemodynamically Stable Hydration Status: Adequately Hydrated Nausea & Vomiting: No Nausea or Vomiting Pain: Pt. Denies Any Pain Peripheral Nerve Block: Patient did not receive a nerve block Postoperative Comments:: Patient discharged prior to anesthesia final assessment. Called patient at home and doing well. Denies questions, denies discomfort or N/V. Patient educated to how to reach ANES if any questions.
== END 2023-12-27 09:46 | disposition home or self-care (01) ==
PROVIDERS: PCP Family Medicine; Visit Provider Urology
PROC: (CPT 52204; principal; 2023-12-27 07:30)
DX: N32.89 Other specified disorders of bladder (principal); R31.0 Gross hematuria; N20.0 Calculus of kidney; N30.91 Cystitis, unspecified with hematuria
CPT/HCPCS: 52204; 52005; 81025; 88305; 74420; J0131; J0690; J1100; J1885; J2003; J2250; J2405; J2704; Q9967

== ENCOUNTER 2024-02-11 06:12 | Day surgery (SDC) | payer OTHER, SELFPAY ==
[2024-02-11] VITALS (12 sets, daily range): BP systolic 113–125; BP diastolic 59–74; PULSE 73–96; RESP 16–24; TEMP 36–36.6; O2SAT 93–100; BMI 43.1
[2024-02-11] MEDS: Normal Saline Flush 10 ML SYR (06:45)
--- NOTE | 2024-02-11 07:00 | W.ANESPRE ---
General Info Date of Service Date Performed: 12/27/23 Height: 5 ft 2 in Weight: 107 kg Body Mass Index (BMI): 43.1 Surgical Procedure: Operation Date: 02/11/24 07:40 Proposed Procedure Side Surgeon p Cystoscopy/Laser/Retrograde/Ureteroscopy Left Craig Haley MD Meds Allergies and Home Medications Allergies Allergy/AdvReac Type Severity Reaction Status Date / Time sulfamethoxazole (From Allergy Severe Hives Verified 02/08/24 10:07 ) trimethoprim (From ) Allergy Severe Hives Verified 02/08/24 10:07 Latex, Natural Rubber Allergy Intermediate Swelling/Ed Verified 02/08/24 10:07 alonso Home Medication ?Medication ?Instructions ?Recorded imipramine HCl 25 mg tablet 25 mg PO QHS incontinence #90 tabs 01/10/24 Current Visit Medications: Current Medications Generic Name Dose Route Start Last Admin Trade Name Freq PRN Reason Stop Dose Admin Ringer's Solution 1,000 mls @ 80 mls/hr 12/27/23 06:00 12/27/23 06:45 IV 01/25/24 23:59 80 mls/hr INFUSION JULIA Administration Cefazolin Sodium/Dextrose 2 gm in 50 mls @ 100 mls/hr 12/27/23 06:00 Ancef Duplex IVPB 12/27/23 16:00 PREOP JULIA IV Miscellaneous Supplies 1 each 12/27/23 06:00 Iv Access IV 01/25/24 23:59 DIRECTED JULIA Sodium Chloride 0 ml 12/27/23 06:00 Normal Saline Flush 10 Ml Syr IV 01/25/24 23:59 PRN PRN Sodium Chloride 0 ml 12/27/23 06:00 Normal Saline 10 Ml Vial IJ 01/25/24 23:59 DIRECTED PRN Sterile Water 0 ml 12/27/23 06:00 Water,Injection,Sterile 10 Ml Vial IJ 01/25/24 23:59 DIRECTED PRN PFSH Active Problems Active Problems: Problem Status Onset Code Mixed incontinence Acute N39.46 Gross hematuria Acute R31.0 Leg wound, left Acute S81.802A Kidney stone Chronic N20.0 Medical History Medical History Kidney stone Medical History Comments:: Pt states she wakes up swinging from adenoidectomy Surgical History Surgical History H/O lithotripsy Hx of wisdom tooth extraction History of adenoidectomy Tobacco Smoking/Tobacco Use Status: Never Alcohol Alcohol Intake: current Alcohol intake frequency: a few times a week Alcohol type: beer and hard liquor Substance Use Substance use: Occasionally Substance use type: marijuana Details: pt states she smokes it, close to a week ago Vital Signs and Lab Results Vital Signs Most Recent Vital Signs in EMR: Most Recent Vital Signs Temp Pulse Resp BP Pulse Ox 36.4 C L 94 H 16 125/67 97 02/11/24 06:34 02/11/24 06:34 02/11/24 06:34 02/11/24 06:34 02/11/24 06:34 Point of Care Results Point of Care Results: POC- Test(urine) Negative 02/11/24 06:39 Lab Results Blood Type / Crossmatch: No Data to Display Complete Blood Count: No Data to Display Complete Metabolic Panel: No Data to Display Liver Function Panel: No Data to Display Coagulation Panel: No Data to Display Cardiac Panel: No Data to Display Arterial Blood Gas: No Data to Display Venous Blood Gas: No Data to Display Pancreas Panel: No Data to Display Thyroid Panel: No Data to Display Infectious Disease: No Data to Display Blood Cultures: No Data to Display Toxicology Panel: No Data to Display Panel: No Data to Display Anesthesia Assessment and Plan Anesthesia History Personal History: No History of Anesthesia Complications Family History: No Family History of Anesthesia Complications Exercise Tolerance Exercise Tolerance: Metabolic Equivalents>4 Pertinent Negatives Pertinent Negatives: No Symptoms of GERD, No Major Cardiovascular Symptoms or Complaints, No Major Pulmonary Symptoms or Complaints and No History of CVA/TIA Cardiac & Pulmonary Exam Cardiac Exam: Normal S1/S2 Heart Sounds Pulmonary Exam: Clear Bilateral Breath Sounds Implantable Cardiac Device Does patient have a Pacemaker or an ICD?: No Airway Exam Known Difficult Airway: No Mallampati Class: 1 Mouth Opening: Normal (> 3cm) Thyromental Distance: Greater than 3 cm Neck Range of Motion: Full ROM Neck Circumference: Normal Teeth Condition: Normal Dentition ASA Classification ASA Score: ASA 3 Emergency Case?: No NPO Status NPO Status: NPO Clears >2 hours, Solids >8 hours Status Status: Negative HCG Anesthesia Plan Resuscitation Status: Full Code Anesthesia Technique: General Anesthesia Airway Planned: Endotracheal Tube Monitors Used: Standard Monitors
--- NOTE | 2024-02-11 07:06 | W.PM.HP.N ---
Date of service: 02/11/24 Time of Service: 07:07 Assessment and Plan Assessment and plan (1) Kidney stone: Status: Chronic Assessment and plan: We will plan ureteroscopy and treatment of her left-sided kidney stones. The stones may be small enough that I can simply grasp them and remove them without using the holmium laser, but we will have the laser available if need be. History of Present Illness History of Present Illness Chief Complaint: Left kidney stones Narrative: This is a 33-year-old woman who has a previous history of kidney stones. She had a large right sided stones that were treated with a ureteroscopy and holmium laser lithotripsy staged procedure. She is now having left-sided discomfort and gross hematuria. She has known left lower pole stones that were not causing obstruction. We had biopsied her bladder and found no significant uropathology. She comes in now for ureteroscopy and holmium laser lithotripsy of her left sided stones Review of Systems Narrative: No fevers or chills No vision change or dysphasia No diabetes or thyroid No shortness of breath, cough or hemoptysis No chest pain or palpitations No nausea, vomiting, hepatitis, ulcers, jaundice No seizures, strokes or peripheral neuropathy No bleeding disorders or anemia No gout PFSH All Active Problems Mixed incontinence (Acute) Gross hematuria (Acute) Leg wound, left (Acute) Kidney stone (Chronic) Medical History Kidney stone Surgical History H/O lithotripsy Hx of wisdom tooth extraction History of adenoidectomy Social History Smoking/Tobacco Use Status: Never Smoking risk assessment performed?: Yes Alcohol Intake: current Alcohol Intake frequency: a few times a week Alcohol type: beer and hard liquor Drug use: Occasionally Substance use type: marijuana Details: pt states she smokes it, close to a week ago Housing: apartment Do you feel safe at home: Yes Do you feel safe in your relationship?: Yes Meds Allergies and Home Medications Allergies Allergy/AdvReac Type Severity Reaction Status Date / Time sulfamethoxazole (From Allergy Severe Hives Verified 02/08/24 10:07 ) trimethoprim (From ) Allergy Severe Hives Verified 02/08/24 10:07 Latex, Natural Rubber Allergy Intermediate Swelling/Ed Verified 02/08/24 10:07 alonso Home Medications ?Medication ?Instructions ?Recorded ?Confirmed ?Type imipramine HCl 25 mg tablet 25 mg PO QHS incontinence #90 tabs 01/10/24 02/11/24 Rx Exam Const General: cooperative and comfortable Neck Neck: supple Resp Effort & Inspection: normal respiratory effort Auscultation: clear to auscultation bilaterally Cardio Rate: regular rate Rhythm: regular rhythm GI Palpation: soft and no masses Neuro General: patient alert, patient awake and patient oriented x3 Results Last Vital Signs Temp 36.4 C L 02/11/24 06:34 Pulse 94 H 02/11/24 06:34 Resp 16 02/11/24 06:34 BP 125/67 02/11/24 06:34 Pulse Ox 97 02/11/24 06:34 Time Spent Time spent with Patient: <40 minutes Time was spent: other
[2024-02-11] MEDS: ceFAZolin 2 GM/50 ML BAG IVPB (07:42)
[2024-02-11] MEDS: Lidocaine 2% Jelly 6 ML SYR (07:51)
[2024-02-11] MEDS: Omnipaque 300 MG/ML 50 ML BTL (07:55)
--- NOTE | 2024-02-11 08:45 | DI.RAD_ITS ---
Exam(s) XR RETROGRADE IN OR EXAM: XR RETROGRADE IN OR CLINICAL HISTORY: Gross hematuria and kidney stone. TECHNIQUE: 2D digital imaging was performed. COMPARISON: No exams were available for comparison FINDINGS: Fluoroscopy provided during retrograde urologic procedure for kidney stones. See procedure report fo r details. Total fluoroscopy time 21 seconds IMPRESSION: Radiation exposure index/cumulative dose: arpit Gilbert=6.6554 mGy DATA REPOSITORY: RADIATION DOSE DELIVERED:
--- NOTE | 2024-02-11 08:56 | W.PM.DSUDISC ---
Date of service: 02/11/24 Time of Service: 08:57 Discharge Plan Disposition Patient Disposition: Home Discharge Details Reason For Visit: kidney stone Attending Provider: Craig Haley Primary Care Provider: Ben Ryan Home Meds and New Rx's Prescriptions: No Action imipramine HCl 25 mg tablet 25 mg PO QHS Qty: 90 3RF Discharge Instructions Additional Instructions: Unfortunately, we were not able to treat your stones with the laser today. I placed a ureteral stent and we will need to arrange a return trip to the operating room for laser lithotripsy of your stone. My office will make these arrangements with you and with the operating room. In the meantime, there is no need to strain your urine. Discharge Orders Discharge Orders: Discharge Order (Routine); Ordered 02/11/24 Ordered By: Craig Haley DS: Diagnosis Discharge Diagnosis (1) Kidney stone: Status: Chronic
--- NOTE | 2024-02-11 08:59 | ROE_ITS ---
Operative Note Operative Note PRE-OP DIAGNOSIS: Left kidney stones POST-OP DIAGNOSIS: same PROCEDURE: cystoscopy, left retrograde pyelogram, left ureteroscopy with stone manipulation, insert left ureteral stent SURGEON: Craig Haley ANESTHESIA TYPE: Local By Surgeon and General LMA/ETT Refer to Anesthesia Record ESTIMATED BLOOD LOSS: 5 PATHOLOGY: none sent Patient was transported to: PACU Patient's condition: stable Implants: 4.8 Par[place]ayan by 22 to 30 cm left ureteral stent Indications: This is a 33-year-old woman who has a history of left sided pain along with hematuria. She does have a history of kidney stones. The stones have been present in the left lower pole and a been nonobstructing. We did a bladder biopsy of an erythematous area of her bladder and no significant uropathology was identified. She presents now for ureteroscopy and treatment of her kidney stones Findings: Stones in the left lower pole calyces Procedure Description: The patient was given IV antibiotics and brought to the operating room on 02/11/2024. After successful induction of general anesthesia, she was placed in the dorsal lithotomy position. Her genitalia was prepped and draped. 2% Xylocaine jelly was instilled into the urethra to act as a local anesthetic. A 22 Paraguayan rigid cystoscope was passed through the urethra into the bladder. The bladder was inspected using a 30 degree lens. We again identified erythematous mucosa on the posterior bladder wall. There was a healing biopsy site. There was some mild edema around the ureteral orifices. The left orifice was cannulated with a 5 Paraguayan access catheter and a retrograde pyelogram was obtained by injecting Omnipaque through the access catheter under fluoroscopic guidance. Filling defects were outlined in the lower pole calyces. I then passed a guidewire through the lumen of the access catheter and removed the access catheter. I passed a dual-lumen catheter over the wire and a second wire was then positioned. We chose one of the wires as a working wire and the other as a safety wire. We passed a ureteral access sheath over the working wire and advanced the sheath until the tip was in the proximal ureter. We removed the working wire leaving the safety wire in place. The flexible ureteroscope was then passed through the lumen of the access sheath and advanced up to the kidney. We inspected the lower pole calyces and identified multiple stones. The stones were grasped and 0 tip stone basket and brought back to the level of the renal pelvis. We then released the stones and attempted to use a 272 ?m holmium laser fiber to fragment the stones further so that they could be brought down the ureter. Unfortunately, our laser was not functional today, so we made the decision to place a ureteral stent and make a planned return visit to the operating room for holmium laser lithotripsy. We removed the ureteroscope and the access sheath. We passed a 4.8 Paraguayan variable length stent over the safety wire. The proximal end of the stent was curled in the renal pelvis and the distal end was curled within the bladder. The positioning of the stent was confirmed both fluoroscopically and cystoscopically. The patient tolerated this procedure well with no complications. She was taken to the recovery room in stable condition. Date of Procedure: 02/11/24
--- NOTE | 2024-02-11 11:16 | W.ANESPOSTOP ---
Postoperative Evaluation Date, Time and Location Date Performed: 02/11/24 Time Performed: 10:02 Patient Location: Day Surgery Unit Vital Signs Most Recent Imported Vital Signs: Most Recent Vital Signs Temp Pulse Resp BP Pulse Ox 36.6 C 77 19 115/63 99 02/11/24 09:47 02/11/24 09:47 02/11/24 09:47 02/11/24 09:47 02/11/24 09:47 Pain Score Most Recent Pain Score: Most Recent Pain Score Pain Level 0 02/11/24 08:56 Assessment Mental Status: Awake (Alert & Oriented to Patient Baseline) Airway and Respiratory Function: Patent airway with normal (patient baseline) respiratory exam Cardiovascular Function: Hemodynamically Stable Hydration Status: Adequately Hydrated Nausea & Vomiting: Active Nausea or Vomiting Present Nausea and Vomiting Management: Nausea present without vomiting, patient wishes to be discharged Pain: Pt. Denies Any Pain Peripheral Nerve Block: Patient did not receive a nerve block
== END 2024-02-11 06:13 | disposition home or self-care (01) ==
PROVIDERS: PCP Family Medicine; Visit Provider Urology
PROC: (CPT 52352; principal; 2024-02-11 07:30)
DX: N20.0 Calculus of kidney (principal); N39.46 Mixed incontinence
CPT/HCPCS: 52352; 52332; 81025; 74420; J0131; J0690; J1100; J1885; J2003; J2250; J2405; J2704; J3475; Q9967

== ENCOUNTER 2024-02-14 06:10 | Day surgery (SDC) | payer OTHER, SELFPAY ==
[2024-02-14] VITALS (34 sets, daily range): BP systolic 105–148; BP diastolic 46–79; PULSE 70–95; RESP 15–32; TEMP 36.2–36.5; O2SAT 93–99; BMI 43.6
--- NOTE | 2024-02-14 06:53 | W.ANESPRE ---
General Info Date of Service Date Performed: 02/14/24 Height: 5 ft 2 in Weight: 108.2 kg Body Mass Index (BMI): 43.6 Surgical Procedure: Operation Date: 02/14/24 07:40 Proposed Procedure Side Surgeon p Cystoscopy/Laser/Retrograde/Ureteroscopy/Stent Removal Left Craig Haley MD Meds Allergies and Home Medications Allergies Allergy/AdvReac Type Severity Reaction Status Date / Time sulfamethoxazole (From Allergy Severe Hives Verified 02/14/24 06:21 ) trimethoprim (From ) Allergy Severe Hives Verified 02/14/24 06:21 Latex, Natural Rubber Allergy Intermediate Swelling/Ed Verified 02/14/24 06:21 alonso Home Medication ?Medication ?Instructions ?Recorded imipramine HCl 25 mg tablet 25 mg PO QHS incontinence #90 tabs 01/10/24 hydromorphone 4 mg tablet 4 - 8 mg (1 - 2 x 4 mg) PO Q4H PRN 02/11/24 (Dilaudid) pain #20 tabs ketorolac 10 mg tablet 10 mg PO Q8H PRN pain 5 days #15 02/11/24 tabs ondansetron HCl 4 mg tablet 4 mg PO Q6H PRN nausea and 02/11/24 vomiting #20 tabs Current Visit Medications: Current Medications Generic Name Dose Route Start Last Admin Trade Name Freq PRN Reason Stop Dose Admin Cefazolin Sodium/Dextrose 2 gm in 50 mls @ 100 mls/hr 02/14/24 06:00 Ancef Duplex IVPB 02/14/24 23:59 PREOP JULIA IV Miscellaneous Supplies 1 each 02/14/24 06:00 Iv Access IV 02/14/24 23:59 DIRECTED JULIA Sodium Chloride 0 ml 02/14/24 06:00 Normal Saline Flush 10 Ml Syr IV 02/14/24 23:59 PRN PRN Sodium Chloride 0 ml 02/14/24 06:00 Normal Saline 10 Ml Vial IJ 02/14/24 23:59 DIRECTED PRN Sterile Water 0 ml 02/14/24 06:00 Water,Injection,Sterile 10 Ml Vial IJ 02/14/24 23:59 DIRECTED PRN PFSH Active Problems Active Problems: Problem Status Onset Code Mixed incontinence Acute N39.46 Gross hematuria Acute R31.0 Leg wound, left Acute S81.802A Kidney stone Chronic N20.0 Medical History Medical History Kidney stone Medical History Comments:: Pt states she wakes up swinging from adenoidectomy Surgical History Surgical History H/O lithotripsy Hx of wisdom tooth extraction History of adenoidectomy Tobacco Smoking/Tobacco Use Status: Never Alcohol Alcohol Intake: current Alcohol intake frequency: a few times a week Alcohol type: beer and hard liquor Substance Use Substance use: Occasionally Substance use type: marijuana Details: pt states she smoked yesterday 02/13/24 Vital Signs and Lab Results Vital Signs Most Recent Vital Signs in EMR: Most Recent Vital Signs Temp Pulse Resp BP Pulse Ox 36.5 C 95 H 18 135/75 96 02/14/24 06:22 02/14/24 06:22 02/14/24 06:22 02/14/24 06:22 02/14/24 06:22 Point of Care Results Point of Care Results: POC- Test(urine) Negative 02/11/24 06:39 Lab Results Blood Type / Crossmatch: No Data to Display Complete Blood Count: No Data to Display Complete Metabolic Panel: No Data to Display Liver Function Panel: No Data to Display Coagulation Panel: No Data to Display Cardiac Panel: No Data to Display Arterial Blood Gas: No Data to Display Venous Blood Gas: No Data to Display Pancreas Panel: No Data to Display Thyroid Panel: No Data to Display Infectious Disease: No Data to Display Blood Cultures: No Data to Display Toxicology Panel: No Data to Display Panel: No Data to Display Anesthesia Assessment and Plan Anesthesia History Personal History: No History of Anesthesia Complications Family History: No Family History of Anesthesia Complications Exercise Tolerance Exercise Tolerance: Metabolic Equivalents>4 Pertinent Negatives Pertinent Negatives: No Symptoms of GERD, No Major Cardiovascular Symptoms or Complaints, No Major Pulmonary Symptoms or Complaints and No History of CVA/TIA Cardiac & Pulmonary Exam Cardiac Exam: Normal S1/S2 Heart Sounds Pulmonary Exam: Clear Bilateral Breath Sounds Implantable Cardiac Device Does patient have a Pacemaker or an ICD?: No Airway Exam Known Difficult Airway: No Mallampati Class: 1 Mouth Opening: Normal (> 3cm) Thyromental Distance: Greater than 3 cm Neck Range of Motion: Full ROM Neck Circumference: Normal Teeth Condition: Normal Dentition ASA Classification ASA Score: ASA 3 Emergency Case?: No NPO Status NPO Status: NPO Clears >2 hours, Solids >8 hours Status Status: Negative HCG Anesthesia Plan Resuscitation Status: Full Code Anesthesia Technique: General Anesthesia Airway Planned: Endotracheal Tube Monitors Used: Standard Monitors
--- NOTE | 2024-02-14 06:57 | HPE_ITS ---
Date of service: 02/14/24 Time of Service: 06:57 Assessment and Plan Assessment and plan (1) Kidney stone: Status: Chronic Assessment and plan: We will remove her ureteral stent, redo her ureteroscopy and have the laser available for holmium laser lithotripsy. History of Present Illness History of Present Illness Chief Complaint: left kidney stones Narrative: This is a 33-year-old woman who has a known history of a left sided kidney stones and hematuria. She has occasional left flank pain. We brought her to the operating room earlier this week where we did ureteroscopy and moved her stones from the lower pole calyx to the renal pelvis. Unfortunately, our holmiu m laser was not functional at that time, so we are only able to place a ureteral stent. She returns now for stent removal, ureteroscopy and holmium laser lithotripsy. She has had significant stent discomfort requiring narcotic analgesics. She has also had gross hematuria since the stent was placed. She has not had fever or chills. Review of Systems Narrative: No fevers or chills No vision change or dysphasia No diabetes or thyroid dysfunction No shortness of breath, cough or hemoptysis No chest pain or palpitations No nausea, vomiting, hepatitis, ulcers, jaundice No seizures, strokes or peripheral neuropathy No bleeding disorders or anemia No gout PFSH All Active Problems Mixed incontinence (Acute) Gross hematuria (Acute) Leg wound, left (Acute) Kidney stone (Chronic) Medical History Kidney stone Surgical History H/O lithotripsy Hx of wisdom tooth extraction History of adenoidectomy Social History Smoking/Tobacco Use Status: Never Smoking risk assessment performed?: Yes Alcohol Intake: current Alcohol Intake frequency: a few times a week Alcohol type: beer and hard liquor Drug use: Occasionally Substance use type: marijuana Details: pt states she smoked yesterday 02/13/24 Housing: apartment Do you feel safe at home: Yes Do you feel safe in your relationship?: Yes Meds Allergies and Home Medications Allergies Allergy/AdvReac Type Severity Reaction Status Date / Time sulfamethoxazole (From Allergy Severe Hives Verified 02/14/24 06:21 ) trimethoprim (From ) Allergy Severe Hives Verified 02/14/24 06:21 Latex, Natural Rubber Allergy Intermediate Swelling/Ed Verified 02/14/24 06:21 alonso Home Medications ?Medication ?Instructions ?Recorded ?Confirmed ?Type imipramine HCl 25 mg tablet 25 mg PO QHS incontinence #90 tabs 01/10/24 02/12/24 Rx hydromorphone 4 mg tablet 4 - 8 mg (1 - 2 x 4 mg) PO Q4H PRN 02/11/24 02/14/24 Rx (Dilaudid) pain #20 tabs ketorolac 10 mg tablet 10 mg PO Q8H PRN pain 5 days #15 02/11/24 02/14/24 Rx tabs ondansetron HCl 4 mg tablet 4 mg PO Q6H PRN nausea and 02/11/24 02/12/24 Rx vomiting #20 tabs Exam Const General: cooperative and uncomfortable Neck Neck: normal visual inspection Resp Effort & Inspection: normal respiratory effort Auscultation: clear to auscultation bilaterally Cardio Rate: regular rate Rhythm: regular rhythm GI Inspection: normal to inspection Palpation: no masses Neuro General: patient alert, patient awake and patient oriented x3 Results Last Vital Signs Temp 36.5 C 02/14/24 06:22 Pulse 95 H 02/14/24 06:22 Resp 18 02/14/24 06:22 BP 135/75 02/14/24 06:22 Pulse Ox 96 02/14/24 06:22 Time Spent Time spent with Patient: <40 minutes Time was spent: other
[2024-02-14] MEDS: ceFAZolin 2 GM/50 ML BAG IVPB (07:41)
[2024-02-14] MEDS: Lidocaine 2% Jelly 6 ML SYR (07:50)
[2024-02-14] MEDS: Omnipaque 300 MG/ML 50 ML BTL (08:00)
--- NOTE | 2024-02-14 08:30 | DI.RAD_ITS ---
Exam(s) XR RETROGRADE IN OR EXAM: XR RETROGRADE IN OR CLINICAL HISTORY: kidney stone. TECHNIQUE: Fluoroscopy was provided for the referring physician for guidance with performing retrogr linda procedure. COMPARISON: XA XR RETROGRADE IN OR from 02/11/2024 FINDINGS: Please see procedure note for details. Fluoro time: 20 seconds RADIATION DOSE DELIVERED: arpit Gilbert=7.4 mGy
--- NOTE | 2024-02-14 08:32 | W.PM.DSUDISC ---
Date of service: 02/14/24 Time of Service: 08:32 Discharge Plan Disposition Patient Disposition: Home Condition: Stable Discharge Details Reason For Visit: ureteroscopy Attending Provider: Craig Haley Primary Care Provider: Ben Ryan Home Meds and New Rx's Prescriptions: No Action imipramine HCl 25 mg tablet 25 mg PO QHS Qty: 90 3RF ketorolac 10 mg tablet 10 mg PO Q8H PRN (Reason: pain) 5 Days Qty: 15 0RF hydromorphone [Dilaudid] 4 mg tablet 4 - 8 mg PO Q4H MDD 6 PRN (Reason: pain) Qty: 20 0RF ondansetron HCl 4 mg tablet 4 mg PO Q6H PRN (Reason: nausea and vomiting) Qty: 20 0RF Discharge Instructions Additional Instructions: There is no reason to strain the urine You may have some pain and blood in the urine for about 3 to 5 days postop, but with no stent in place, I would expect the discomfort to improve fairly quickly Follow-up appointment in about 8 weeks with renal ultrasound prior to the appointment. We will review your stone analysis at that time. Activity:: Activity as Tolerated Shower/Bathe:: 24 hours Diet:: As Tolerated Discharge Orders Discharge Orders: Discharge Order (Routine); Ordered 02/14/24 Ordered By: Craig Haley DS: Diagnosis Discharge Diagnosis (1) Kidney stone: Status: Chronic
--- NOTE | 2024-02-14 08:35 | W.PM.OP ---
Operative Note Operative Note PRE-OP DIAGNOSIS: Left kidney stones POST-OP DIAGNOSIS: same PROCEDURE: Cystoscopy, remove left ureteral stent, left retrograde pyelogram, left flexible ureteroscopy with holmium laser lithotripsy of kidney stones, stone fragment extraction SURGEON: Craig Haley ANESTHESIA TYPE: Local By Surgeon and General LMA/ETT Refer to Anesthesia Record ESTIMATED BLOOD LOSS: 5 PATHOLOGY: other (Stones for chemical analysis) COMPLICATIONS: None Patient was transported to: PACU Patient's condition: stable Implants: None Indications: This is a 33-year-old woman who has a history of bilateral kidney stones. He had ureteroscopy and holmium laser lithotripsy with a staged procedure for her right obstructing ureteral stone. She had some nonobstructing left kidney stones which then became symptomatic. Earlier this week, we did ureteroscopy but we did not have a functioning laser, so we simply placed a left ureteral stent. She returns now for ureteroscopy and holmium laser lithotripsy of the stone Findings: Multiple stones at the left renal pelvis/UPJ Procedure Description: The patient was given preoperative IV antibiotics and brought to the operating room on 02/14/2024. After successful induction of general anesthesia, she was placed in the dorsolithotomy position. Her genitalia was prepped and draped. 2% Xylocaine jelly was instilled into the urethra to act as a local anesthetic. A 22 Irish rigid cystoscope was passed through the urethra into the bladder. The bladder was inspected with the 30 degree lens. A stent could be seen protruding from the left ureteral orifice. There was a marked amount of inflammation around the left ureteral orifice. The stent was grasped and brought to the level of the urethral meatus. A guidewire was then advanced through the stent and the stent was removed. A dual-lumen catheter was advanced over the wire and a retrograde pyelogram was obtained by injecting Omnipaque through the access catheter under fluoroscopic guidance. We identified filling defects at the UPJ. A second wire was then passed through the dual-lumen catheter and the catheter was removed. We chose one of the wires as a working wire and the other as a safety wire. We advanced a ureteral access sheath over the working wire and positioned the sheath such that the proximal end was in the proximal ureter. We passed the flexible ureteroscope up through the access sheath and visualized stone fragments right at the UPJ. We treated the stones with a 272 ?m holmium laser fiber. We used dusting settings to fragment the stone and we were then able to grasp multiple stone fragments using a 0 tip stone basket. The stone fragments were removed and sent to pathology for chemical analysis. Reinspection of the kidney showed a few very small stone fragments that were deemed to be too small to basket. Each of these fragments were smaller than they diameter of our guidewire. I then removed the ureteral access sheath and the scope. I repositioned the dual-lumen catheter and reinjected Omnipaque. No extravasation of contrast was identified. We then removed the dual-lumen catheter and obtained a delayed film which confirmed drainage of the kidney with no extravasation of contrast. We then decided not to place a ureteral stent. All guidewires and scopes were removed. The patient tolerated the procedure well with no complications. She was taken to the recovery room in stable condition. Date of Procedure: 02/14/24
[2024-02-14] MEDS: fentaNYL 100 MCG/2 ML VIAL IVP ×3 (09:21→11:50)
[2024-02-14] MEDS: Phenazopyridine 200 MG TAB PO (10:10)
[2024-02-14] MEDS: HYDROmorphone 2 MG TAB 4 MG PO (10:39)
--- NOTE | 2024-02-14 11:00 | W.ANESPOSTOP ---
Postoperative Evaluation Date, Time and Location Date Performed: 02/14/24 Time Performed: 11:00 Patient Location: Day Surgery Unit Vital Signs Most Recent Imported Vital Signs: Most Recent Vital Signs Temp Pulse Resp BP Pulse Ox 36.2 C L 74 16 126/71 96 02/14/24 10:08 02/14/24 10:08 02/14/24 10:08 02/14/24 10:08 02/14/24 10:08 Pain Score Most Recent Pain Score: Most Recent Pain Score Pain Level 4 02/14/24 10:49 Assessment Mental Status: Awake (Alert & Oriented to Patient Baseline) Airway and Respiratory Function: Patent airway with normal (patient baseline) respiratory exam Cardiovascular Function: Hemodynamically Stable Hydration Status: Adequately Hydrated Nausea & Vomiting: No Nausea or Vomiting Pain: Pain is Moderate or Severe Postoperative Pain Management: Pain being addressed with medication Peripheral Nerve Block: Patient did not receive a nerve block
[2024-02-14] MEDS: LORazepam 2 MG/ML VIAL 0.5 MG IVP (11:51)
[2024-02-25 22:03] LABS: Source: Left Kidney
== END 2024-02-14 13:50 | disposition home or self-care (01) ==
PROVIDERS: PCP Family Medicine; Visit Provider Urology
PROC: (CPT 52353; principal; 2024-02-14 07:30)
DX: N20.0 Calculus of kidney (principal); R31.0 Gross hematuria
CPT/HCPCS: 52353; 81025; 74420; 82365; J0131; J0690; J1100; J1885; J2003; J2060; J2250; J2405; J2704; J3010; J3475; Q9967

== ENCOUNTER 2024-05-10 10:22 | Outpatient (REF) | payer MEDICAID, SELFPAY ==
--- OUTSIDE RECORDS SUMMARY | 2024-05-10 10:24 | XMS_ITS | Encounter Summary ---
[place] [address] Care Team Providers Care Receiving Associate Name Role Phone Sj Suazo MD Primary Care Provider Reason for Visit * Reason Comments Prior Authorization Dupixent 300mg/2ml s opn Encounter Details Date Type Department Care Team (Late st Contact Info) Description 10/27/2022 Specialty [place] [address] Maribel Justin, REHABILITATION AIDE Social History Tobacco Use Types Packs/Day Years Used Date Smoking Tobacco: Never Sex and Gender Information Value Date Recorded Sex Assigned at Not on file Gender Identity Not on file Sexual Orientation Not on file documented as of this encounter Progress Notes * Maribel Jutsin - 10/27/2022 9:02 AM EDT [facility], Medication Prior Authorization Submission Patient: Jorge Luis Subramanian Patient : 1990 Patient Address: [address] [place] [id number] (home) Medication Name: DUPIXENT 300 MG/2 ML SUBCUTANEOUS PEN INJECTOR Medication ID: [id number] Subscriber Insurance: [place] Medicaid Subscriber Insurance Comment: Phone: Fax: Physician: [...] MG/2 ML SUBCUTANEOUS PEN INJECTOR Medication ID: [id number] Case/Reference # : [id number] Denial Summary: Needs at least 10% BSA. Needs at least 1 month trial of tacrolimus (filled 10/25 per fax) Patient Notified of Denial: No Additional Information from insurance carrier. Please see below: None For any questions relating to this denial please reach out directly to your section's specialty pharmacist, or the specialty pharmacy team at [facility] Maribel Justin 10/27/22 11:25 AM documented in this encounter Plan of Treatment Not on file documented as of this encounter Visit Diagnoses Not on filedocumented in this encounter Care Teams Receiving Associate Relationship Specialty Start Date End Date Sj Suazo MD [address] [facility] [place] [address] PCP - General Obstetrics and Gynecology 04/19/22 documented as of this encounter
--- OUTSIDE RECORDS SUMMARY | 2024-05-10 10:24 | XMS_ITS | Encounter Summary ---
Author Organization [facility] [place] [address] Care Team Providers Care Sorter Lumber Straightener Name Role Phone Diamond Cerrato TIMBO Primary Care Provider [phone] Reason for Visit * Reason Comments Rash * Consultation (Routine) - Closed Specialty Diagnoses / Procedures Referred By Contac t Referred To Contact Dermatology Diagnoses Allergic dermatitis ? PATCH TESTING- ALLERGIC DERMATITIS, SUSPECT DYE ALLERGIES, PERHAPS TO PARAPHENYLENEDIAMINE Geo Rodrigez MD [address] [facility], [place] [address] Almas Jane MD [address] [facility] [place] [address] Referral ID Status Reason Start Date Expiration Date V isits Requested Visits Authorized [id number] Closed Consult, Test & Treat Connection [facility] 01/04/2015 01/04/2016 6 6 Encounter Details Date Type Department Care Team (Late st Contact Info) Description 02/05/2015 10:00 AM EST Office Visit Dermatology at [facility] [address] [place] [id number] Almas Jane MD [address] [facility] [place] [address] Allergic contact dermatitis (Primary Dx) Social History [...] to the patient???s skin as directed byyour crm architect. 3. Moisten the ???bandages?? (these can be [...] Referral: 01/04/2015 Referred by: Geo Rodrigez Md [place] [id number] Chief Complaint: Rash History of Present Illness [...] but no report available; done at [facility]. 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 Bleach baths ?? Pathology report from [facility] Follow-up: in 4 weeks for patch test or sooner as needed for worsening or new dermatitis. I am documenting this encounter acting as the scribe for and in the presence of Dr. Jane: YANA PRIETO LPN I performed the above scribed service and agree with the accuracy of the documentation in this encounter. Almas Jane MD FAAD Section of Dermatology [facility] documented in this encounter Plan of Treatment Not on file documented as of this encounter Visit Diagnoses Diagnosis Allergic contact dermatitis- Primary Contact dermatitis and other eczema, due to unspecified cause documented in this encounter Care Teams Sorter Lumber Straightener Relationship Specialty Start Date End Date Diamond Cerrato APRN PCP - General Family Medicine 02/05/15 05/21/16 documented as of this encounter
--- OUTSIDE RECORDS SUMMARY | 2024-05-10 10:24 | XMS_ITS | Encounter Summary ---
Author Organization [facility] Address [facility] [place] [address] Care Team Providers Care Lithographic Press Operator Name Role Phone Sj Suazo MD Primary Care Provider Encounter Details Date Type Department Care Team (Late st Contact Info) Description 07/29/2022 Notes Only Dermatology at [facility] [address] [place] [address] Airam Andrews MD Social History Tobacco Use Types Packs/Day Years Used Date Smoking Tobacco: Never Sex and Gender Information Value Date Recorded Sex Assigned at Not on file Gender Identity Not on file Sexual Orientation Not on file documented as of this encounter Progress Notes * Airam Andrews MD - 07/29/2022 11:26 AM EDT Fire Extinguisher Mechanic Resident Note: - Received Transfer Center Call from Dr. Montanez at [facility] - Pt known to Dermatology, last [...] on filedocumented in this encounter Care Teams Lithographic Press Operator Relationship Specialty Start Date End Date Sj Suazo MD [address] [facility] [address] [place] [address] PCP - General Obstetrics and Gynecology 04/19/22 documented as of this encounter
--- OUTSIDE RECORDS SUMMARY | 2024-05-10 10:24 | XMS_ITS | Encounter Summary ---
Author Organization [facility] [place] [address] Care Team Providers Care Cloth Carrier Name Role Phone Sj Suazo MD Primary Care Provider Reason for Referral * Consultation (Routine) - Closed Specialty Diagnoses / Procedures Referred By Germaine ley Referred To Contact Dermatology Diagnoses Other local lupus erythematosus Gissell Quick PA [address] [place] [address] [facility] Dermatology [address] [place] [address] Referral ID Status Reason Start Date Expiration Date V isits Requested Visits Authorized [id number] Closed Consult, Test & Treat PCP Updated and/or Approved 04/19/2022 04/19/2023 6 6 Encounter Details Date Type Department Care Team (Latest Contact Info) Description 04/19/2022 Transcribe Orders eDH Incoming Referrals [phone] Gissell Quick PA [address] [place] [address] Other local lupus erythematosus Social [...] erythematosus documented in this encounter Care Teams Cloth Carrier Relationship Specialty Start Date End Date Sj Suazo MD [address] [facility],[address] [place] [id number] PCP - General Obstetrics and Gynecology 04/19/22 documented as of this encounter
--- OUTSIDE RECORDS SUMMARY | 2024-05-10 10:24 | XMS_ITS | Encounter Summary ---
Author Organization [facility] Address [facility] [place] [address] Care Team Providers Care Airfield Manager Name Role Phone Shaun Figueroa MD Primary Care Provider [phone] Encounter Details Date Type Department Care Team (Late st Contact Info) Description 01/01/2015 3:00 PM EDT Office Visit Dermatology at [address] [address] Geo Rodrigez MD [address] [facility] [place] [address] Allergic contact dermatitis Social History Tobacco Use [...] cause documented in this encounter Care Teams Airfield Manager Relationship Specialty Start Date End Date Shaun Figueroa MD [address] [place] [address] PCP - General 02/15/10 02/04/15 documented as of this encounter
--- OUTSIDE RECORDS SUMMARY | 2024-05-10 10:24 | XMS_ITS | Encounter Summary ---
Author Organization [facility] Address [facility] [place] [address] Care Team Providers Care Orchestra Director Name Role Phone Diamond Cerrato Vikki IZQUIERDO Primary Care Provider [phone] Encounter Details Date Type Department Care Team (Late st Contact Info) Description 04/05/2015 2:00 PM EST Office Visit Dermatology at [facility] [address] [place] [address] Almas Jane MD [address] [facility] [place] [address] Dermatitis Social History Tobacco Use Types Packs/Day [...] or concerns, please call the office at [phone]. If it is after 5PM, or a holiday or weekend, please call [phone] and ask for the Revenue Audit Clerk on-call. documented in this encounter Progress Notes * Octavio Chisholm LPN - 04/05/2015 11:54 AM EST Visit For: punch biopsy History of Present Illness Jorge Luis Subramanian is a 24 y.o. 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 Patient has been patch tested twice, [...] specific queries. Examination Standby: OCTAVIO S WEST, PHLEBOTOMY PROGRAM COORDINATOR Pain 0/10. Mood is appropriate. Well developed, [...] Almas Jane MD FAAD Section of Dermatology [facility] documented in this encounter Plan of Treatment Not on file documented as of this encounter Procedures Procedure Name Priority Date/Time Associated Diagnosis Comments SURGICAL PATHOLOGY REPORT Routine 04/05/2015 12:06 PM EST SPECIMEN TO PATHOLOGY Routine 04/05/2015 12:06 PM EST Dermatitis documented in this encounter Results * Surgical Pathology Report (04/05/2015 12:06 PM EST) Final Diagnosis [id number] ?Location: [facility] The signing pathologist has (i) [...] Bisected. (T1) ??aml 04/07/2015 10:22 AM EST [facility] SPECIMEN FROM SKIN / Unknown 04/05/2015 12:06 PM EST 04/05/2015 12:06 PM EST Almas Jane MD PATHOLOGY/CYTOLOGY O RDERALEATHA [facility] [place] [address] * Specimen to Pathology (surgical or derm) (04/05/2015 12:06 PM EST) AP Specimen 04/05/2015 12:0 6 PM EST 04/05/2015 3:27 PM EST Narrative [facility] - 04/05/2015 3:27 PM EST Specimen requisition ordered. ??Separate Pathology report to follow Resulting Agency Comment Spec In Lab Almas Jane MD PATHOLOGY/CYTOLOGY O RDERALEATHA [facility] documented in this encounter Visit Diagnoses Diagnosis Dermatitis Contact dermatitis and other eczema, due to unspecified cause documented in this encounter Care Teams Orchestra Director Relationship Specialty Start Date End Date Diamond Cerrato APRN PCP - General Family Medicine 02/05/15 05/21/16 documented as of this encounter
--- OUTSIDE RECORDS SUMMARY | 2024-05-10 10:24 | XMS_ITS | Encounter Summary ---
[place] [address] Care Team Providers Care Butcher Scullion Name Role Phone Sj Suazo MD Primary Care Provider [phone] Encounter Details Date Type Department Care Team [...] on filedocumented in this encounter Care Teams Butcher Scullion Relationship Specialty Start Date End Date Sj Suazo MD [address] [facility] [address] [place] [address] PCP - General Obstetrics and Gynecology 04/19/22 documented as of this encounter
--- OUTSIDE RECORDS SUMMARY | 2024-05-10 10:24 | XMS_ITS | Encounter Summary ---
[place] [address] Care Team Providers Care Validation Technician Name Role Phone Sj Suazo MD Primary [...] on filedocumented in this encounter Care Teams Validation Technician Relationship Specialty Start Date End Date Sj Suazo MD [address] [facility] [address] [place] [address] PCP - General Obstetrics and Gynecology 04/19/22 documented as of this encounter
--- OUTSIDE RECORDS SUMMARY | 2024-05-10 10:24 | XMS_ITS | Encounter Summary ---
Author Organization [facility] Address [facility] [place] [address] Care Team Providers Care Weaver Axminster Name Role Phone Diamond Cerrato TIMBO Primary Care Provider [phone] Encounter Details Date Type Department Care Team (Late Contact Info) Description 03/12/2015 1:15 PM EST Office Visit Dermatology at [facility] [address] [place] [address] Almas Jane MD [address] [facility] [place] [address] Dermatitis (Primary Dx); Allergic contact dermatitis Social [...] dermatitis but no report available; done at [facility]. Patient has been patch tested [...] textile dyes, concrete, epoxy hardeners, and photographic net applications developer. Chromate is also found in cement (not dried) and metal plating and is a cause of occupational dermatitis inbricklayers, construction workers, and metal workers. Less Likely Radcliffe (II) chloride hexahydrate is a metal used with other metals to make metal alloys. Because cobalt and nickel can be found in many of the same metal products, allergies to both metals can develop. To prevent this, consider wearing jewelry made of frida silver or other reinaldo metals, rather than costume jewelry. Radcliffe is frequently combined with nickel, and this [...] Almas Jane MD FAAD Section of Dermatology [facility] documented in this encounter Plan of Treatment Not on file documented as of this encounter Visit Diagnoses Diagnosis Dermatitis- Primary Contact dermatitis and other eczema, due to unspecified cause Allergic contact dermatitis Contact dermatitis and other eczema, due to unspecified cause documented in this encounter Care Teams Weaver Axminster Relationship Specialty Start Date End Date Diamond Cerrato APRN PCP - General Family Medicine 02/05/15 05/21/16 documented as of this encounter
--- OUTSIDE RECORDS SUMMARY | 2024-05-10 10:24 | XMS_ITS | Encounter Summary ---
[place] [address] Care Team Providers Care Woodworker Helper Name Role Phone Sj Suazo MD Primary [...] on filedocumented in this encounter Care Teams Woodworker Helper Relationship Specialty Start Date End Date Sj Suazo MD [address] [facility] [address] [place] [address] PCP - General Obstetrics and Gynecology 04/19/22 documented as of this encounter
--- OUTSIDE RECORDS SUMMARY | 2024-05-10 10:24 | XMS_ITS | Encounter Summary ---
[place] [address] Care Team Providers Care Decorative Greens Cutter Name Role Phone Sj Suazo MD Primary Care Provider [phone] Encounter Details Date Type Department Care Team [...] on filedocumented in this encounter Care Teams Decorative Greens Cutter Relationship Specialty Start Date End Date Sj Suazo MD [address] [facility] [address] [place] [address] PCP - General Obstetrics and Gynecology 04/19/22 documented as of this encounter
--- OUTSIDE RECORDS SUMMARY | 2024-05-10 10:24 | XMS_ITS | Encounter Summary ---
[place] [address] Care Team Providers Care Supervisor Chassis Assembly Name Role Phone Sj Suazo MD Primary Care Provider [phone] Reason for Visit * Reason Comments Patient Education Encounter Details Date Type Department Care Team (Late st Contact Info) Description 10/25/2022 Specialty [place] [address] Oscar Grigsby Rafael Social History Tobacco Use [...] Requirements: no Medication Reconciliation Discrepancies (compared to [facility] med list) -N/A Medication List: Current [...] specialty services: Yes Patient accepted offer to cancer genetic counselor: select all, adherence/missed doses, cost of [...] to doctor discussed, reminder to refill or spanish moss picker medication discussed, self-monitoring discussed, start medication [...] Social Assessment: Does patient have a primary customer care associate: No Does patient have an emergency contact on file: Yes Does patient need referral to geriatric social worker: No Does patient need referral to advocacy [...] were made at the appointment and that [facility] isproviding recommendations (summary located at top of note) for provider review and follow up. Oscar Grigsby RPH 10/25/22 2:21 PM documented in this encounter Plan of Treatment Not on file documented as of this encounter Visit Diagnoses Not on filedocumented in this encounter Care Teams Supervisor Chassis Assembly Relationship Specialty Start Date End Date Sj Suazo MD [address] [facility] [address] [place] [address] PCP - General Obstetrics and Gynecology 04/19/22 documented as of this encounter
--- OUTSIDE RECORDS SUMMARY | 2024-05-10 10:24 | XMS_ITS | Encounter Summary ---
Author Organization [facility] [place] [address] Care Team Providers Care Consumer Marketing Manager Name Role Phone Diamond Cerrato DEEP SUBMERGENCE VEHICLE OPERATOR Primary Care Provider [phone] Encounter Details Date Type Department Care Team ([facility] Contact Info) Description 04/12/2015 Telephone Dermatology at [facility] [address] [place] [address] Almas Jane MD [address] [facility] [place] [address] Social History Tobacco Use Types Packs/Day Years [...] but not limited to atrophy, dyspigmentation. ?? [place] clobetasol for 2-3 x per week for [...] Systematic Reviews 2015, Issue 10. Art. No.: [id number]. DOI: 10.1002/[id number].pub3 This update adds more evidence showing no [...] incidental documented in this encounter Care Teams Consumer Marketing Manager Relationship Specialty Start Date End Date Diamond Cerrato APRN PCP - General Family Medicine 02/05/15 05/21/16 documented as of this encounter
--- OUTSIDE RECORDS SUMMARY | 2024-05-10 10:24 | XMS_ITS | Encounter Summary ---
[place] [address] Care Team Providers Care Hospitalist Medical Director Name Role Phone Sj Suazo MD Primary Care Provider [phone] Reason for Visit * Reason Comments Specialty Pharmacy Review Dupixent Encounter Details Date Type Department Care Team (Late st Contact Info) Description 10/25/2022 Specialty [place] [address] Conrado Mcgraw CPHT Social History Tobacco Use Types Packs/Day Years Used Date Smoking Tobacco: Never Sex and Gender Information Value Date Recorded Sex Assigned at Not on file Gender Identity Not on file Sexual Orientation Not on file documented as of this encounter Progress Notes * Conrado Mcgraw CPHT - 10/25/2022 11:59 PM EDT The [facility] has completed a benefits investigation for Jorge Luis Subramanian to review their eligibility to fill at [facility]. Per patient's medication list they are prescribedDupixent and the medication is able to be filled at the [facility]. The prior authorization was denied by the insurance on 10/27/22. documented in this encounter Plan of Treatment Not on file documented as of this encounter Visit Diagnoses Not on filedocumented in this encounter Care Teams Hospitalist Medical Director Relationship Specialty Start Date End Date Sj Suazo MD [address] [facility],[address] [place] [address] PCP - General Obstetrics and Gynecology 04/19/22 documented as of this encounter
--- OUTSIDE RECORDS SUMMARY | 2024-05-10 10:24 | XMS_ITS | Encounter Summary ---
Author Organization [facility] [place] [address] Care Team Providers Care Gospel Worker Name Role Phone Sj Suazo MD Primary Care Provider Encounter Details Date Type Department Care Team (Late st Contact Info) Description 08/24/2022 9:20 AM EDT Office Visit Dermatology at [facility] [address] [place] [address] Gallito Heller MD Dermatitis Social History Tobacco Use Types Packs/Day [...] Provider: Gallito Heller MD Patient's preferred name Rufuslaine Preferred contact method for results [x]?Phone []?myD-H [...] months for Eczema F/U []Note routed to secretary receptionist []Recall placed in scheduling system [x]Appointment scheduled at checkout Scribe attestation: eJnna Augustin [facility] has performed the documentation for this encounter inthe presence of and acting as a scribe for Gallito Heller MD. I performed the above scribed service and agree with the accuracy of the documentation in this encounter. Reviewed and signed by: Gallito Heller MD Dermatology [facility] Patient seen and evaluated with staff software release engineer: Lucas Mosley MD Dermatology [facility] * Lucas Mosley MD - 08/24/2022 [...] cause documented in this encounter Care Teams Gospel Worker Relationship Specialty Start Date End Date Sj Suazo MD [address] [facility],[address] [place] [id number] PCP - General Obstetrics and Gynecology 04/19/22 documented as of this encounter
--- OUTSIDE RECORDS SUMMARY | 2024-05-10 10:24 | XMS_ITS | Encounter Summary ---
Author Organization [facility] Address [facility] [place] [address] Care Team Providers Care Lithographic Camera Operator Name Role Phone Sj Suazo MD Primary Care Provider Reason for Visit * Consultation (Routine) - Closed Specialty Diagnoses / Procedures Referred By Germaine ley Referred To Contact Dermatology Diagnoses Other local lupus erythematosus Gissell Quick, [address] [place] [address] [facility] Dermatology [address] [place] [address] Referral ID Status Reason Start Date Expiration Date V isits Requested Visits Authorized [id number] Closed Consult, Test & Treat PCP Updated and/or Approved 04/19/2022 04/19/2023 6 6 Encounter Details Date Type Department Care Team (Late st Contact Info) Description 07/26/2022 4:00 PM EDT Office Visit Dermatology at [facility] [address] [place] [address] Gallito Heller MD Dermatitis; Neoplasm of unspecified behavior of bone, [...] for rash follow up. []Note routed to racing secretary []Recall placed in scheduling system [x]Appointment scheduled at checkout Scribe attestation: Caron Cronin [facility] has performed the documentation for this encounter in the presence of and acting as a scribe for Gallito Heller MD. I performed the above scribed service and agree with the accuracy of the documentation in this encounter. Reviewed and signed by: Gallito Heller MD Dermatology [facility] Patient seen and evaluated with staff clip wrapper: Nikki Katz MD Department of Dermatology [facility] * Nikki Katz MD - 07/26/2022 [...] physician's note. Nikki Katz MD Staff Physician [facility] Dermatology * Gallito [...] Report (07/26/2022 4:56 PM EDT) Final Diagnosis [id number] ? Location: [facility] The signing pathologist has (i) examined the relevant preparation(s) for the specimen(s) and (ii) rendered or confirmed the diagnosis(es). . ?Surgical Pathology DIAGNOSIS A - Left first toe, skin punch biopsy: - Spongiotic dermatitis (see discussion) Electronically signed by: ?Kacie Albert MD Verified: ??08/09/2022 17:07 ??Dermatopatholog ist Performed at: ??-[facility] Dept. of Pathology, [place] [id number] Tail Puller: Narcisa Mckeon MD, FCAP, ??CLIA Certificate: [id number] DISCUSSION Sections show acanthosis, spongiosis, parakeratosis, exocytosis [...] labeled A1. ??sdy 08/09/2022 5:07 PM EDT [facility] SPECIMEN FROM SKIN / Unknown 07/26/2022 4:56 PM EDT 07/26/2022 4:56 PM EDT Gallito Heller MD PATHOLOGY/CYTOLOGY O RDERALEATHA [facility] [place] [address] [facility] [place] [address] * Specimen to Pathology (07/26/2022 4:56 PM EDT) AP Specimen 07/26/2022 4:56 PM EDT 07/26/2022 4:56 PM EDT Narrative [facility] - 07/26/2022 4:56 PM EDT Specimen requisition ordered. ??Separate Pathology report to follow Nikki Katz MD PATHOLOGY/CYTOLOGY O RDERABLES [facility] [address] documented in this encounter Visit Diagnoses Diagnosis Dermatitis Contact dermatitis and other eczema, due to unspecified cause Neoplasm of unspecified behavior of bone, soft tissue, and skin documented in this encounter Care Teams Lithographic Camera Operator Relationship Specialty Start Date End Date Sj Suazo MD [address] [facility] [address] [place] [address] PCP - General Obstetrics and Gynecology 04/19/22 documented as of this encounter
--- OUTSIDE RECORDS SUMMARY | 2024-05-10 10:24 | XMS_ITS | Encounter Summary ---
Author Organization [facility] [place] [address] Care Team Providers Care Carboy Filler Name Role Phone Sj Suazo MD Primary Care Provider [phone] Encounter Details Date Type Department Care Team (Late st Contact Info) Description 01/30/2023 11:00 AM EST Office Visit Dermatology at [facility] [address] [place] [address] Jaxon De La Fuente MD [address] [place], [place] [id number] Dermatitis; Paronychia of fifth toe Social History [...] for Dermatitis follow up. []Note routed to dental secretary []Recall placed in scheduling system [x]Appointment scheduled at checkout Scribe attestation: Caron Cronin LPN OR MEDICAL ASSISTANT has performed the documentation for this encounter in the presence of and acting as a scribe for Jaxon De La Fuente MD. I performed the above scribed service and agree with the accuracy of the documentation in this encounter. Reviewed and signed by: Jaxon De La Fuente MD Dermatology [facility] Patient seen and evaluated with staff rotary dump operator: Osman Jane MD Dermatology [facility] * Osman Jane MD - 01/30/2023 [...] agree withthem as documented. OSMAN JANE [facility] documented in this encounter Plan of Treatment Not on file documented as of this encounter Visit Diagnoses Diagnosis Dermatitis Contact dermatitis and other eczema, due to unspecified cause Paronychia of fifth toe documented in this encounter Care Teams Carboy Filler Relationship Specialty Start Date End Date Sj Suazo MD [address] [facility] [address] [place] [address] PCP - General Obstetrics and Gynecology 04/19/22 documented as of this encounter
--- OUTSIDE RECORDS SUMMARY | 2024-05-10 10:24 | XMS_ITS | Encounter Summary ---
Author Organization [facility] Address [facility] [place] [address] Care Team Providers Care Banquet Food Server Name Role Phone Diamond Cerrato TEST KITCHEN HOME ECONOMIST Primary Care Provider [phone] Reason for Visit * Reason Comments Patch Testing Encounter Details Date Type Department Care Team ([facility] Contact Info) Description 03/08/2015 11:30 AM EST Office Visit Dermatology at [facility] [address] [place] [address] Almas Jane MD [address] [facility] [place] [address] Encounter for allergy testing (Primary Dx) Social [...] no report available; done at [facility]. Patient has been patch tested twice, reports whole body hives after both times and unable to read results. Interval changes to Medications and Medical, Family and Social Histories (including alcohol and tobacco use) Since Last Visit 01-26-15: No significant interval history. Allergies Allergies Allergen Reactions ??? Latex ??? Septra [Sulfamethoxazole-Trimethoprim] Medications Reconciled as above. 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
--- OUTSIDE RECORDS SUMMARY | 2024-05-10 10:24 | XMS_ITS | Clinical Summary ---
Author Organization [facility] Address [facility] [place] [address] Care Team Providers Care Sports Specialist Name Role Phone Sj Suazo MD Primary Care Provider Allergies Active Allergy Reactions Criticality Noted Date Comments Latex 02/05/2015 Sulfamethoxazole-Trimethoprim 2014 Medications Medication Sig Dispensed Refills Start Date End Date Status cycloSPORINE (SANDIMMUNE) 100 mg Capsule 0 12/03/2014 Active halobetasol (ULTRAVATE) 0.05 % Ointment 0 12/04/2014 Active betamethasone valerate (VALISONE) 0.1 % CreamIndications:[place] titis Apply topically 2 times daily. 90 [...] 60 g 10/25/2022 Active ruxolitinib 1.5 % CreamIndications:[place] titis Apply topically two times daily to [...] - Influenza standard series) 11/25/2023 Care Teams Sports Specialist Relationship Specialty Start Date End Date Sj Suazo MD [address] [facility] [address] [place], [place] [id number] PCP - General Obstetrics and Gynecology 04/19/22
--- OUTSIDE RECORDS SUMMARY | 2024-05-10 10:24 | XMS_ITS | Encounter Summary ---
Author Organization [facility] [place] [address] Care Team Providers Care Flame Channeler Name Role Phone Sj Suazo MD Primary Care Provider Reason for Visit * Reason Comments Specialty Pharmacy Review Encounter Details Date Type Department Care Team (Late st Contact Info) Description 01/30/2023 Specialty [place] [address] Lion Jurado, [facility] Social History Tobacco Use Types Packs/Day Years Used Date Smoking Tobacco: Never Sex and Gender Information Value Date Recorded Sex Assigned at Not on file Gender Identity Not on file Sexual Orientation Not on file documented as of this encounter Progress Notes * Lion Jurado - 01/30/2023 11:59 PM EST The [facility] has completed a benefits investigation for Jorge Luis Subramanian to review their eligibility to fill at [facility]. Per patient's medication list they are prescribedDUPIXENT 300 MG/2 ML and the medication is not able to be filled at the [facility]. Theprior authorization has been denied. documented in this encounter Plan of Treatment Not on file documented as of this encounter Visit Diagnoses Not on filedocumented in this encounter Care Teams Flame Channeler Relationship Specialty Start Date End Date Sj Suazo MD [address] [place] [address] PCP - General Obstetrics and Gynecology 04/19/22 documented as of this encounter
--- OUTSIDE RECORDS SUMMARY | 2024-05-10 10:24 | XMS_ITS | Encounter Summary ---
Author Organization [facility] Address [facility] [place] [address] Care Team Providers Care Gas Line Repairer Name Role Phone Diamond Cerrato EVENT MARKETING MANAGER Primary Care Provider [phone] Reason for Visit * Reason Comments Patch Testing Encounter Details Date Type Department Care Team ([facility] Contact Info) Description 03/10/2015 9:30 AM EST Office Visit Dermatology at [facility] [address] [place] [address] Almas Jane MD [address] [facility] [place] [address] Dermatitis (Primary Dx); Encounter for allergy testing [...] but no report available; done at [facility]. Patient has been patch tested twice, [...] Almas Jane MD FAAD Section of Dermatology [facility] documented in this encounter Plan of Treatment Not on file documented as of this encounter Visit Diagnoses Diagnosis Dermatitis- Primary Contact dermatitis and other eczema, due to unspecified cause Encounter for allergy testing Diagnostic skin and sensitization tests documented in this encounter Care Teams Gas Line Repairer Relationship Specialty Start Date End Date Diamond Cerrato APRN PCP - General Family Medicine 02/05/15 05/21/16 documented as of this encounter
--- OUTSIDE RECORDS SUMMARY | 2024-05-10 10:24 | XMS_ITS | Encounter Summary ---
Author Organization [facility] [place] [address] Care Team Providers Care Violent Crimes Detective Name Role Phone Sj Suazo MD Primary Care Provider Encounter Details Date Type Department Care Team (Late st Contact Info) Description 10/25/2022 1:20 PM EDT Office Visit Dermatology at [facility] [address] [place] [address] Jaxon De La Fuente MD [address] [place], [place] [id number] Dermatitis Social History Tobacco Use Types Packs/Day [...] months for eczema f/u []Note routed to unit secretary []Recall placed in scheduling system []Appointment scheduled at checkout Scribe attestation: Caron Cronin [facility] has performed the documentation for this encounter in the presence of and acting as a scribe for Jaxon De La Fuente MD. I performed the above scribed service and agree with the accuracy of the documentation in this encounter. Reviewed and signed by: Jaxon De La Fuente MD Dermatology [facility] Patient seen and evaluated with staff clinical application specialist: Angelia Finch MD Dermatology [facility] * Angelia Finch MD - 10/25/2022 1:20 [...] Angelia Finch MD ([place]), FAAD Staff Physician [facility] documented in this encounter Plan of Treatment Not on file documented as of this encounter Visit Diagnoses Diagnosis Dermatitis Contact dermatitis and other eczema, due to unspecified cause documented in this encounter Care Teams Violent Crimes Detective Relationship Specialty Start Date End Date Sj Suazo MD [address] [facility] [address] PCP - General Obstetrics and Gynecology 04/19/22 documented as of this encounter
--- OUTSIDE RECORDS SUMMARY | 2024-05-10 10:24 | XMS_ITS | Encounter Summary ---
Author Organization [facility] Address [facility] [place] [address] Care Team Providers Care Neurology Hospitalist Name Role Phone Sj Suazo MD Primary Care Provider Encounter Details Date Type Department Care Team (Late st Contact Info) Description 10/25/2022 Refill Dermatology at [facility] [address] [place] [address] Jaxon De La Fuente MD [address] [place] [address] Social History Tobacco Use Types Packs/Day Years [...] on filedocumented in this encounter Care Teams Neurology Hospitalist Relationship Specialty Start Date End Date Sj Suazo MD [address] [facility] [address] [place] [address] PCP - General Obstetrics and Gynecology 04/19/22 documented as of this encounter
--- OUTSIDE RECORDS SUMMARY | 2024-05-10 10:24 | XMS_ITS | Encounter Summary ---
Author Organization Count Includes [facility] Address [facility] [place] [address] Care Team Providers Care Double Corner Cutter Name Role Phone Diamond Cerrato CARCASS SPLITTER Primary Care Provider [phone]- [phone] Reason for Visit * Reason Comments Follow-up Encounter Details Date Type Department Care Team ([facility] Contact Info) Description 03/31/2015 11:15 AM EST Office Visit Dermatology at [facility] [address] [place] [address] Almas Jane MD [address] [facility] [address] Dermatitis (Primary Dx) Social History Tobacco Use [...] to the patient???s skin as directed byyour appeals specialist. 3. Moisten the ???bandages?? (these can be hand towels or small towels). Soak them in the bathwater and then wring dry so not dripping wet. ??? When treating an or very young child, moistened pajamas may [...] to be ACD currently using clobetasol, Bag [place] and Vaseline who reports worsening - flaring [...] dermatitis but no report available; done at [facility]. Patient has been patch tested twice, reports whole body hives after both times and unable to read results. [facility] patch testing Feb 2015 showed positives to colophonium and cobalt and equivocal reactions to Methyldibromo glutaronitrile/phenoxyethanol. Biopsy results were requested from [facility] but as of Mar 2015 were not received by [facility]. Interval Changes in Medications and Medical, Surgical [...] Favor ACD with Id reaction.Pathology report from [facility] has not been received. Counseled: eczema [...] for rebiopsy of patient. Pathology report from [facility]. Follow-up: based on pathology report from [facility]. I am documenting this encounter acting as the scribe for and in the presence of Dr. Jane: YANA PRIETO LPN I performed the above scribed service and agree with the accuracy of the documentation in this encounter. Almas Jane MD FAAChris Section of Dermatology [facility] documented in this encounter Plan of Treatment Not on file documented as of this encounter Visit Diagnoses Diagnosis Dermatitis- Primary Contact dermatitis and other eczema, due to unspecified cause documented in this encounter Care Teams Double Corner Cutter Relationship Specialty Start Date End Date Diamond Cerrato APRN PCP - General Family Medicine 02/05/15 05/21/16 documented as of this encounter
--- OUTSIDE RECORDS SUMMARY | 2024-05-10 10:24 | XMS_ITS | Encounter Summary ---
Author Organization [facility] [place] [address] Care Team Providers Care Sugar Cane Farm Manager Name Role Phone Sj Suazo MD Primary Care Provider Reason for Visit * Reason Onset Date Comments Prior Authorization 01/31/2023 ruxolitinib 1.5 % Cream Encounter Details Date Type Department Care Team (Late st Contact Info) Description 01/31/2023 [place] [address] Shila Roach MA Prior Authorization (ruxolitinib 1.5 [...] PA Outcome: PA Denial [place] [address] DENIED: ruxolitinib 1.5 % Cream Case/Reference #: [id number] Additional Information from Insurance: * Telephone Encounter - Stacey Dean CMA - 01/31/2023 12:48 PM EST Images from the original note were not included. * Telephone Encounter - Shila Roach MA - 01/31/2023 10:30 AM ESTSummary: PA Request ruxolitinib 1.5 % Cream PA Submitted Submitted Date: Date Submitted: 01/31/2023 Medication Prior Authorization Patient: Jorge Luis Subramanian Patient : 1990 Insurance Company: [place] [employer] Sent via: [facility] Voss: [id number] Physician: Jaxon De La [...] for Dermatitis follow up. []Note routed to secretary to board of commissioners []Recall placed in scheduling system [x]Appointment scheduled at checkout Scribe attestation: Caron Cronin CMA has performed the documentation for this encounter in the presence of and acting as a scribe for Jaxon De La Fuente MD. I performed the above scribed service and agree with the accuracy of the documentation in this encounter. Reviewed and signed by: Jaxon De La Fuente MD Dermatology [facility] Patient seen and evaluated with staff deicer element winder machine: Almas Jane MD Dermatology [facility] documented in this encounter Plan of Treatment Not on file documented as of this encounter Visit Diagnoses Not on filedocumented in this encounter Care Teams Sugar Cane Farm Manager Relationship Specialty Start Date End Date Sj uSazo MD [address] [facility] [address] [place] [address] PCP - General Obstetrics and Gynecology 04/19/22 documented as of this encounter
--- OUTSIDE RECORDS SUMMARY | 2024-05-10 10:24 | XMS_ITS | Encounter Summary ---
Author Organization [facility] [place] [address] Care Team Providers Care Crystal Gazer Name Role Phone Sj Suazo MD Primary Care Provider Encounter Details Date Type Department Care Team (Late st Contact Info) Description 04/27/2023 10:00 AM EST Office Visit Dermatology at [facility] [address] [place] [address] Jaxon De La Fuente MD [address] [place], [place] [id number] Eczema, unspecified type Social History Tobacco Use [...] De La Fuente MD Patient's preferred name Yashpriscilla Preferred contact method for results [x]Phone []myD-H [...] Other: N/A RTC: PRN []Note routed to electrical lineworker []Recall placed in scheduling system []Appointment scheduled at checkout Scribe attestation: Escobar [place], RN has performed the documentation for this encounter in the presence of and acting as a scribe for Jaxon De La Fuente MD. I performed the above scribed service and agree with the accuracy of the documentation in this encounter. Reviewed and signed by: Jaxon De La Fuente MD Dermatology [facility] Staff stage driver: Alexander Hernadez MD Dermatology [facility] * Alexander Hernadez MD - 04/27/2023 10:00 AM EST I was the supervising physician working with the Dermatology resident, Jaxon De La Fuente MD, in the care of this Dermatology patient in person. For the purposes of billing, the resident provided the care. I have reviewed the encounter note details and level of service. ALEXANDER HERNADEZ MD Staff Wrapper Layer Department of Dermatology [facility] documented in this encounter Plan of Treatment Not on file documented as of this encounter Visit Diagnoses Diagnosis Eczema, unspecified type documented in this encounter Care Teams Crystal Gazer Relationship Specialty Start Date End Date Sj Suazo MD [address] [facility] [address] [place] [address] PCP - General Obstetrics and Gynecology 04/19/22 documented as of this encounter
--- OUTSIDE RECORDS SUMMARY | 2024-05-10 10:24 | XMS_ITS | Encounter Summary ---
[place] [address] Care Team Providers Care Motorman/Woman Name Role Phone Sj Suazo MD Primary [...] on filedocumented in this encounter Care Teams Motorman/Woman Relationship Specialty Start Date End Date Sj Suazo MD [address] [place] [address] PCP - General Obstetrics and Gynecology 04/19/22 documented as of this encounter
--- OUTSIDE RECORDS SUMMARY | 2024-05-10 10:24 | XMS_ITS | Encounter Summary ---
Author Organization [facility] [place] [address] Care Team Providers Care Rubber Worker Name Role Phone Sj Suazo MD Primary Care Provider Encounter Details Date Type Department Care Team (Late st Contact Info) Description 10/27/2022 [place] [id number] Yvonne Augustin CMA Social History Tobacco Use [...] [x] Received an approval letter via fax gravity prospecting observer- duplicate request, not our department, we didn't submit the PA. [] Received a denial letter via fax gravity prospecting observer- duplicate request, not our department, we didn't submitthe PA. [] Received immunizations from an outside facility- immunizations entered in the chart, and the immunization report will be indexed in chart. [] Received labs from an outside facility- labs entered into the chart, and the lab report will be indexed in the chart. [] Went through our STPs in [facility] to see if approval or denial [...] to the correct department que in fax gravity prospecting observer [] Received medical records for a patient that is not a DH patient [] verified information received on document in external fax gravity prospecting observer [] Non-DH documents [] inbasket message /waiting to hear back from the provider/provider pool documented in this encounter Plan of Treatment Not on file documented as of this encounter Visit Diagnoses Not on filedocumented in this encounter Care Teams Rubber Worker Relationship Specialty Start Date End Date Sj Suazo MD [address] [facility],[place] [id number] PCP - General Obstetrics and Gynecology 04/19/22 documented as of this encounter
--- OUTSIDE RECORDS SUMMARY | 2024-05-10 10:25 | XMS_ITS | Referral Summary ---
Author Organization [facility] Address [address] [place] [address] Care Team Providers Care Java Solutions Architect Name Role Phone Unknown, Provider Primary Care Provider Unava ilable Social History Tobacco Use Types Packs/Day Years Used Date Smoking Tobacco: Never Assessed Comments Unknown Sex and Gender Information Value Date Recorded Sex Assigned at Not on file Legal Sex Female 18:25 EST Gender Identity Not on file Sexual Orientation Not on file Plan of Treatment Not on file Insurance [id number] Care Teams Java Solutions Architect Relationship Specialty Start Date End Date Unknown, Provider, PCP - General 01/31/15
--- OUTSIDE RECORDS SUMMARY | 2024-05-10 10:25 | XMS_ITS | Encounter Summary ---
Author Organization [facility] [place] [address] Care Team Providers Care Corporate Security Officer Name Role Phone Shaun Figueroa MD Primary Care Provider [phone] Reason for Visit * Reason Comments Dermatitis Encounter Details Date Type Department Care Team (Late st Contact Info) Description 12/03/2014 9:45 AM EDT Office Visit Dermatology at [address] [place] [address] Geo Rodrigez MD [address] [facility] [address] Allergic contact dermatitis Discharge Disposition: Home Social [...] from the original note were not included. [facility] Dermatitis: After Your Visit Your Care [...] help for plant rashes. ?? Try an lvxj-nip-tkovfjo antihistamine such as diphenhydramine (Benadryl) or chlorpheniramine [...] more? Visit our health information library at [email or web address] [employer] You can also view health information on [employer], your personal patient account. Log in or sign up today. Enter F270 in the search box to learn more about Dermatitis: After Your Visit. ?? [id number] [facility]. Care instructions adapted under license by [facility]. This care instruction is for use with your licensed healthcare professional. If you have questions about a medical condition or this instruction, always ask your healthcare professional. [facility] disclaims any warranty or liability for your use of this information. Content Version: 10.4.325189; Current as of: June 04, 2013 documented in this encounter Progress Notes * Geo Rodrigez MD - 12/03/2014 10:23 AM EDT Problem: Dermatitis. Jorge Luis follows up and is now 24. I last saw her seven years ago. Since then she has and was living in [place] and while there developed a vesicular dermatitis [...] told to avoid dyed socks. She works [employer] and did so in [place] as well. She has known allergies to SEPTRA and LATEX. She states that since March 2014 things were going fairly well, but just during the last couple of weeks things have flared up again out of the blue very badly. She just recently started working at [employer] and just recently bought some new dark socks to wear. The patient states that a biopsy was done in [place] and it was consistent with allergic contact [...] cause documented in this encounter Care Teams Corporate Security Officer Relationship Specialty Start Date End Date Shaun Figueroa MD [address] [place] [address] PCP - General 02/15/10 02/04/15 documented as of this encounter
--- OUTSIDE RECORDS SUMMARY | 2024-05-10 10:25 | XMS_ITS | Clinical Summary ---
Author Organization [facility] Address [address] [place] [address] Care Team Providers Care Mechanical Test Engineer Name Role Phone Unknown, Provider Primary Care Provider Unava ilable Social History Tobacco Use Types Packs/Day Years Used Date Smoking Tobacco: Never Assessed Comments Unknown Sex and Gender Information Value Date Recorded Sex Assigned at Not on file Legal Sex Female 18:25 EST Gender Identity Not on file Sexual Orientation Not on file Plan of Treatment Health Maintenance Due Date Last Done Comments Hepatitis C Screen 1990 Hepatitis B Vaccine (1 of 3 - 19+ 3-dose series) 04/21 COVID-19 Vaccine ( season) 2023 Insurance [id number] Care Teams Mechanical Test Engineer Relationship Specialty Start Date End Date Unknown, Provider, PCP - General 01/31/15
--- OUTSIDE RECORDS SUMMARY | 2024-05-10 10:25 | XMS_ITS | Encounter Summary ---
Author Organization [facility] Address [address] [place] [address] Care Team Providers Care Police Liaison Name Role Phone Unavailable Primary Care Provider Unavailabl e Encounter Details Date Type Department Care Team (Late st Contact Info) Description 03/05/2000 Results Only [facility] conversion [address] [place] [address] Dony Wallace MD [address] [place] [phone] Social History Tobacco Use Types Packs/Day Years [...] Priority Date/Time Associated Diagnosis Comments SURGICAL PATHOLOGY Routine 03/05/2000 0:00 EST documented in this encounter Results * SURGICAL PATHOLOGY (03/05/2000 0:00 EST) Pathology Report: SURGICAL PATHOLOGY REPORT Reports generated via electronic interface contain original data; however they are lacking the format of the original report. Caution should be taken when reading/interpreti ng unformatted reports. Name: ? KEVAN KAPOOR THANH ? Accession #: ? [id number] ? : ? 1990 (Age: 9) ??F ? Collect Date: ? 03/05/2000 ? Location: ? [facility] ? Receive Date: ? 03/06/2000 ? Provider: DONY WALLACE MD Copy to: CRAIG SANABRIA MD ? Final Pathologic Diagnosis: ? A. ?? Adenoid, adenoidectomy: ?1. ??Lymphoid tissue consistent with adenoids. Gross only. B. ?Nasal mucosa and turbinate, left, biopsy: 1. ?Chronic rhinitis with mild eosinophilic infiltrate. C. ?Nasal mucosa and turbinate, right, biopsy: ? 1. ?? Chronic rhinitis with mild eosinophilic infiltrate. Document reviewed and electronically signed by: Byron Vasquez MD Report ??Date: 03/09/2000 18:48 By the signature above, the attending physician certifies that he/she has personally conducted a gross and/or microscopic examination of the described specimens and rendered or confirmed the above diagnosis. Specimen(s) Received: A. ?Adenoid (#1) B. ?Left turbinate (#2) C. ?Right turbinate (#3) D. ?Portion of right turbinate for EM (#4) Clinical History: ? Enlarged adenoid, enlarged turbinates; chronic rhinitis synd; R/O immotile cilia Gross Description: ? Received in formalin labelled Armin and adenoid are multiple vance-puente focally hemorrhagic irregular soft tissue fragments aggregating 2.0 x 1.5 x 0.5 cm. ??No discrete nodules are identified. ??No sections submitted. Gross diagnosis. Received in formalin labelled Armin and left turbinate is a vance-pink irregular 2.6 x 0.9 x 0.5 cm soft tissue with underlying vance-white cartilaginous tissues. ??No discrete nodules are identified. ??The specimen is longitudinally bisected and entirely submitted as (A) following decalcification. ?? Received in formalin labelled Armin and 3. Right turbinate are two vance-pink irregular soft tissues measuring 1.2 x 0.8 x 0.5 cm and 1.6 x 0.7 x 0.5 cm. ??Each tissue has underlying vance-white cartilaginous tissues. ??No discrete nodules are identified. ??Each tissue is longitudinally bisected with the larger as (B1) following decalcification and the smaller as (B2). ??(Uriah Carter)/[facility] ELECTRON MICROSCOPY ? Date Ordered: ? 03/06/2000 ? Status: ?? Signed Out ?Date Complete: ? 03/29/2000 ? By: ??Brandy Barbosa ? Date Reported: ? 03/29/2000 ? Interpretation ? Right turbinate, biopsy: - Inconclusive study due to the presence of squamous metaplasia and degenerative changes. Comment ? This is obtained from the turbinate biopsy and processed for conventional electron microscopy. ??Sixteen fixed sections are examined. ??The majority of the sections show squamous metaplasia without respiratory ciliated cells. ??Very rare ciliated cells are identified, however, they are degenerated in nature and are of insufficient quantity for further evaluation. ??Thus, thin-sectioning is not performed and the processing is terminated at the thick-sectioning stage. ??(Dr. Frederick)/[facility] Description Document reviewed and electronically signed by: ? KAILA FREDERICK MD ? Report date: 03/29/2000 By the signature above, the attending physician certifies that he/she has personally conducted a gross and/or microscopic examination of the described specimens and rendered or confirmed the above diagnosis. End of Report KESHA MARTINEZ 03/05/2000 03/06/2000 12: 22 EST us Dony Wallace MD PATHOLOGY ORDERABLES Final Resul t KESHA MARTINEZ [address] [place] [address] documented in this encounter Visit Diagnoses Not on filedocumented in this encounter
--- OUTSIDE RECORDS SUMMARY | 2024-05-10 10:25 | XMS_ITS | Encounter Summary ---
Author Organization [facility] Address [address] [place] [address] Care Team Providers Care Residential Mental Health Worker Name Role Phone Unknown, Provider Primary Care Provider Unava ilable Encounter Details Date Type Department Care Team (Late st Contact Info) Description 01/01/2024 Lab Requisition [facility] Pathology & Laboratory Medicine - [facility] [address] [place] [address] Craig Haley MD [address] [place] [address] [place] [address] Encounter for other general examination Social History Tobacco Use Types Packs/Day Years [...] Priority Date/Time Associated Diagnosis Comments SURGICAL PATHOLOGY Today 12/27/2023 8: 17 EDT Encounter for other general examination documented in this encounter Results * SURGICAL PATHOLOGY (12/27/2023 8:17 EDT) Note to Patient The following pathology results have been interpreted by your pathologist and may be available to you before your health provider has had the opportunity to review them. Please allow time for your provider to receive these results and explore management options, if applicable. 01/03/2024 15:26 EDT [facility] Final Diagnosis A. BLADDER, BIOPSY: - Urothelial tissue with chronic and focal acute inflammation with surface reactive changes. See comment. 01/03/2024 15:26 [facility] Diagnosis Comment Microscopic sections show urothelial tissue with prominent subepithelial chronic inflammation with capillary congestion. The overlying urothelium shows focal acute inflammation and reactive changes. 01/03/2024 15:26 [facility] Attestation There was significant resident/fellow involvement in the diagnostic evaluation of this case. By the signature below, the attending physician certifies that they have personally conducted a gross and/or microscopic examination of the described specimens and rendered or confirmed the above diagnosis. 01/03/2024 15:26 [facility] at 1526 Clinical History Gross hematuria 01/03/2024 15:26 [facility] Gross Description A. Received in formalin labelled with proper patient identification (initials O, D) and 1. Bladder bx's are 2 vance-white tissues (each 0.3 x 0.1 x 0.1 cm). Entirely submitted in A1. Gissell Johnson 01/01/2024 14:18 01/03/2024 15:26 [facility] Resident/Paul w: Kayleigh Ocasio MD 01/03/2024 15:26 [facility] Performing Lab [facility] 01/03/2024 15:26 [facility] Scanned Images 01/03/2024 15:26 [facility] Tissue SPECIMEN FROM URINARY BLADDER / Unknown 12/27/2023 8:17 EDT 01/01/2024 14:10 EDT us Craig Haley MD PATHOLOGY ORDERABLES Kristyn l Result [facility] [address] [place] [address] documented in this encounter Visit Diagnoses Diagnosis Encounter for other general examination documented in this encounter Care Teams Residential Mental Health Worker Relationship Specialty Start Date End Date Unknown, Provider, PCP - General 01/31/15 documented as of this encounter
--- OUTSIDE RECORDS SUMMARY | 2024-05-10 10:25 | XMS_ITS | Encounter Summary ---
Author Organization [facility] Address [address] [place] [address] Care Team Providers Care Senior Administrative Associate Name Role Phone Unavailable Primary Care Provider Unavailabl e Encounter Details Date Type Department Care Team (Late st Contact Info) Description 08/30/2009 Results Only [facility] Laboratory Services - [facility] ([facility] [address] [place] [id number] April Norman, WALLACE Social History Tobacco Use Types Packs/Day Years [...] Procedure Name Priority Date/Time Associated Diagnosis Comments CYTOPATHOLOGY Routine 08/30/2009 0:00 EDT documented in this encounter Results * CYTOPATHOLOGY (08/30/2009 0:00 EDT) Pathology Report: CYTOPATHOLOGY REPORT ? Reports generated via electronic interface contain original data; ? however they are lacking the format of the original report. ? Caution should be taken when reading/interpreti ng unformatted reports. ? Name: ? KEVAN KAPOOR ? Accession #: ? [id number] ? : ? 1990 (Age: 19) ??F ?Collect Date: ? 08/30/2009 ? Location: ? [facility] ? Receive Date: ? 08/31/2009 ? Provider: ?APRIL M ELAINE [facility] ? Copy to: ? Specimen/Source: ?Pap Test, Cervix/Endocervix, ThinPrep Imaging System ? with manual evaluation ? Last Menstrual Period: ? 06/06/10 ? SPECIMEN ADEQUACY ? Satisfactory for Evaluation ? - transformation zone component present ? GENERAL CATEGORIZATION ? Negative for Intraepithelial Lesion or Malignancy ? Document reviewed and electronically signed by: ? Ofe Young, CT(ASCP) ? Report Date: ??09/03/2009 12:54 ? End of Report ? [facility] 08/30/2009 08/31/2009 us April Norman [facility] PATHOLOGY ORDERABLES Final Re sult [facility] [address] [place] [address] documented in this encounter Visit Diagnoses Not on filedocumented in this encounter
[2024-05-10 13:03] LABS: Creatinine,Urine 174.52 mg/dL; Sodium, Urine 139 mmol/L
[2024-05-10 13:07] LABS: CLEAVED CELLS 125 mmol/24h (40-220); Creatinine,24hr Ur 1.57 g/24hr (0.60-1.80); Total Volume 900 ml
[2024-05-11 09:05] LABS: Timed Urine Volume 900 mL; Uric Acid Urine 68.7 mg/dL (See Note); Uric Acid Urine 24hr 618 mg/24hrs (250-750)
[2024-05-11 09:36] LABS: Magnesium 24hr Urine 115.2 mg/24hrs (12.0-192.0); Magnesium Random Urine 12.8 mg/dL (See Note); Timed Urine Volume 900 mL
[2024-05-11 09:47] LABS: Calcium Urine 32.1 mg/dL (See Note); Calcium Urine 24 hr 289 mg/24hr (100-300); Timed Urine Volume 900 mL
[2024-05-14 11:06] LABS: Citrate Excretion, 24hr, U 1490 mg/24 h (235 - 1191); Urine Volume 900 mL
[2024-05-14 13:27] LABS: Oxalate, U 0.23 mmol/24 h; Oxalate, U 20.2 mg/24 h (9.7 - 40.5); Urine Volume 900 mL
== END 2024-05-10 10:23 | disposition home or self-care (01) ==
LOC: LBN 10:22
PROVIDERS: PCP Family Medicine; Visit Provider Urology
DX: N20.0 Calculus of kidney (principal)
CPT/HCPCS: 82507; 83735; 81050; 82340; 82570; 83945; 84300; 84560

== ENCOUNTER 2024-06-27 18:03 | Emergency (ER) | payer MEDICAID, SELFPAY ==
[2024-06-27 18:05] VITALS: BP 150/100; PULSE 96; RESP 18; TEMP 36.8; O2SAT 99
--- NOTE | 2024-06-27 18:16 | W.ED.GENAD ---
Discharge Plan Disposition Patient Disposition: Home Condition: Stable Discharge Details Clinical Impression: Cyst of right ovary Primary Care Provider: eBn Ryan ED Provider: Radha Cleary Home Meds and New Rx's Prescriptions: No Action imipramine HCl 25 mg tablet 50 mg PO QHS Qty: 180 3RF hydroxyzine HCl 25 mg tablet 25 mg PO TID PRN (Reason: bladder pain) Qty: 90 0RF Discharge Instructions Instructions: Ovarian Cyst ED Additional Instructions: The CT shows a right ovarian cyst which most likely recently ruptured. This can be normal in some women. This is most likely the reason for your pain. No evidence for appendicitis, no bowel obstruction, no evidence of kidney stones. Please take Tylenol or Ibuprofen with food every 4-6 hours as needed for pain and swelling. You may also apply heating pads to your abdomen if this makes it feel better. Follow up with primary care provider in 3-5 days. Return to ED sooner if any worsening or concerns. Thank you for your patience and allowing us to care for you today. Referrals: Ben Ryan MD [Primary Care Provider] - 5 days HPI General Mode of arrival: ambulatory. Date/Time Provider Initiated Documentation: 06/27/24 18:05. Limitations to Documentation: no limitations. Information obtained by: patient, RN notes reviewed and old records reviewed. HPI Narrative: 34-year-old female presents to the ER with a chief complaint of right lower quadrant abdominal pain which began couple hours prior to arrival. She describes it as constant. Denies any nausea vomiting diarrhea or problems urinating. She does have have a history of kidney stones, ureteroscopy and lithotripsy. She reports this feels different. She did last have her normal menstrual period 2 weeks ago she is not currently on control. Related Data Home Medications ?Medication ?Instructions ?Recorded ?Confirmed imipramine HCl 25 mg tablet 50 mg (2 x 25 mg) PO QHS 04/14/24 06/27/24 incontinence #180 tabs hydroxyzine HCl 25 mg tablet 25 mg PO TID PRN bladder pain #90 05/12/24 06/27/24 tabs Previous Rx's ?Medication ?Instructions ?Recorded imipramine HCl 25 mg tablet 50 mg (2 x 25 mg) PO QHS 04/14/24 incontinence #180 tabs hydroxyzine HCl 25 mg tablet 25 mg PO TID PRN bladder pain #90 05/12/24 tabs Allergies Allergy/AdvReac Type Severity Reaction Status Date / Time sulfamethoxazole (From Allergy Severe Hives Verified 06/27/24 18:16 ) trimethoprim (From ) Allergy Severe Hives Verified 06/27/24 18:16 Latex, Natural Rubber Allergy Intermediate Swelling/Ed Verified 06/27/24 18:16 alonso General Stated Complaint: Abd Prob LAURA: 3 Review of Systems All systems reviewed & are unremarkable except as noted in HPI and below Gastrointestinal Gastrointestinal: Reports as per HPI and Reports abdominal pain Exam Narrative Exam Narrative: Constitutional: Alert and oriented x3. Appears stated age. Obese body habitus. Head: Normocephalic, no trauma. Eyes: Pupils PERRL, Red reflex noted, EOM's intact. Eyelids symmetrical without lesions, discharge, or swelling. ENT: Bilateral TM's WNL, External ear normal to inspection, no mastoid TTP, swelling, or erythema, Nasal turbinates WNL, no nasal discharge. Normal dentition, Posterior pharynx WNL, no exudate. Chest: RRR, Normal S1, S2, distal pulses intact. Resp: Lungs clear to auscultation bilaterally, no wheezes, rales, or rhonchi. Abdomen: Soft, non-distended, Normoactive bowel sounds all 4 quads. Musculoskeletal: Normal gait, Moves all 4 extremities without difficulty. Skin: No suspicious rashes or lesions. Capillary refill less than 2 sec. Neurologic: Cranial nerves II-XII intact. Alert and oriented x 3. Motor: No deficits noted. Sensory: Intact bilaterally all 4 extremities. Hematologic/Lymphatic: No ecchymosis, no lymphadenopathy. Course Vital Signs Vital signs: Vital Signs Temperature 36.8 C 06/27/24 18:05 Pulse 96 H 06/27/24 18:05 Respiratory Rate 18 06/27/24 18:05 Blood Pressure 150/100 H 06/27/24 18:05 Pulse Oximetry 99 06/27/24 18:05 Temperature 36.8 C 06/27/24 18:05 Pulse 96 H 06/27/24 18:05 Respiratory Rate 18 06/27/24 18:05 Blood Pressure 150/100 H 06/27/24 18:05 Pulse Oximetry 99 06/27/24 18:05 Medical Decision Making 34-year-old female presents to the ER with a chief complaint of right lower quadrant abdominal pain which began couple hours prior to arrival. She describes it as constant. Denies any nausea vomiting diarrhea or problems urinating. She does have have a history of kidney stones, ureteroscopy and lithotripsy. She reports this feels different. She did last have her normal menstrual period 2 weeks ago she is not currently on control. Workup ordered including CBC CMP lipase urinalysis urine test. Differential diagnosis includes but not limited to ovarian cyst, ectopic , appendicitis, gastroenteritis, kidney stone. Labs show white blood cell count of 12.07, platelets 408, absolute neutrophils 6.88, CMP largely within normal limits, lipase 35, urinalysis shows trace leukocytes 10-20 WBCs but many epithelial cells and squamous contamination. Culture not indicated at this time. CT shows a right ovarian cyst less likely recently ruptured. Also has a gallstone which is chronic. Discussed CT results with patient who verbalized understanding. Discussed the urinalysis results and did encourage her to seek further care if she does have signs or symptoms of UTI at this time and is squamous contaminated I do not think that she has a UTI. Instructed to take Tylenol ibuprofen and heating pads. All of her questions were answered to the best my ability. This text was generated using [employer] dictation system, please disregard any oddities of phrase or misspellings. Medical Records Medical records reviewed: Yes I reviewed the patient's medical records. Lab Data Lab results reviewed: Yes I reviewed the patient's lab results. Labs: Laboratory Tests Range/Units 06/27/24 06/27/24 18:25 18:31 WBC (4.4-10.8) 10^3/uL 12.07 H RBC (3.93-5.22) 10^6/uL 4.80 Hgb (11.2-15.7) g/dL 13.7 Hct (36.0-46.0) % 42.3 MCV (80-95) fL 88 MCH (27.0-33.0) pg 28.5 MCHC (32.0-36.0) % 32.4 RDW (11.7-14.6) % 12.5 Plt Count (130-400) 10^3/uL 408 H MPV (8.0-11.0) fL 9.7 Immature Gran % % 0.6 Neutrophils % % 57.0 Lymphocytes % % 34.2 Monocytes % % 7.0 Eosinophils % % 0.8 Basophils % % 0.4 Nucleated RBC % (0.0-0.3) % 0.0 Absolute Neutrophils (1.2-6.7) 10^3/uL 6.88 H Absolute Lymphocytes (1.2-3.4) 10^3/uL 4.13 H Absolute Monocytes (0.1-0.8) 10^3/uL 0.84 H Absolute Eosinophils (0.0-0.7) 10^3/uL 0.10 Absolute Basophils (0.0-0.2) 10^3/uL 0.05 Sodium (136-145) mmol/L 142 Potassium (3.5-5.1) mmol/L 3.5 Chloride (98-107) mmol/L 107 Carbon Dioxide (21.0-32.0) mmol/L 27.1 Anion Gap (3-11) mmol/L 7.9 BUN (7-18) mg/dL 10 Creatinine (0.55-1.02) mg/dL 0.6 Est GFR (CKD-EPI 2020) (mL/min/1.73m2) 122.23 Glucose (74-106) mg/dL 88 Calcium (8.5-10.1) mg/dL 9.4 Magnesium (1.8-2.4) mg/dL 2.0 Total Bilirubin (0.2-1.0) mg/dL 0.2 AST (15-37) U/L 14 L ALT (14-59) U/L 24 Alkaline Phosphatase (46-116) U/L 74 Total Protein (6.4-8.2) g/dL 8.0 Albumin (3.4-5.0) g/dL 3.5 Lipase (<78) U/L 35 Urine Color (Yellow) Yellow Urine Clarity (Clear) Clear Urine pH (5-8) 7.0 Ur Specific [place] (1.005-1.025) 1.025 Urine Protein (Neg-Trace) mg/dL Trace Urine Ketones (Negative) mg/dL Negative Urine Blood (Negative) Negative Urine Nitrite (Negative) Negative Urine Bilirubin (Negative) Negative Urine Urobilinogen (Up to 0.2) mg/dL 0.2 Ur Leukocyte Esterase (Negative) Trace H Urine RBC (0-2) HPF 0-2 Urine WBC (0-5) HPF 10-20 H Ur Epithelial Cells (Negative) HPF Many Urine Crystals (Negative) HPF Negative Urine Bacteria (Negative) HPF Rare Urine Casts (Negative) LPF Negative Urine Mucus (Negative) Negative Urine Other (Negative) Rare Transitional Ur Culture Indicated? No/Sq. Contamination Urine Glucose (Negative) mg/dL Negative Quality:SDOH Health Related Social Needs: No Data to Display PFSH All Active Problems (Updated 06/27/24 @ 21:21 by Radha Cleary NP) Cyst of right ovary (Acute) Mixed incontinence (Acute) Gross hematuria (Acute) Leg wound, left (Acute) Kidney stone (Chronic) Medical History (Updated 06/27/24 @ 21:21 by Radha Cleary NP) Kidney stone Surgical History (Updated 04/14/24 @ 13:26 by Craig Haley MD) History of ureteroscopy H/O lithotripsy Hx of wisdom tooth extraction History of adenoidectomy Social History Smoking/Tobacco Use Status: Never Smoking risk assessment performed?: Yes Alcohol Intake: current Alcohol Intake frequency: a few times a month Alcohol type: beer and hard liquor Drug use: Daily Substance use type: marijuana Housing: apartment Do you feel safe at home: Yes Do you feel safe in your relationship?: Yes
[2024-06-27 18:18] VITALS: BP 150/100; PULSE 96; RESP 18; TEMP 36.8; O2SAT 99
[2024-06-27 18:49] LABS: Abs Immature Grans 0.07 10^3/uL (0.0-0.06); Absolute Basophil Count 0.05 10^3/uL (0.0-0.2); Absolute Lymphocyte Count 4.13 10^3/uL (1.2-3.4); Absolute Monocyte Count 0.84 10^3/uL (0.1-0.8); Absolute Neutrophil Count 6.88 10^3/uL (1.2-6.7); Basophils % 0.4 %; Eosinophils % 0.8 %; HCT 42.3 % (36.0-46.0); HGB 13.7 g/dL (11.2-15.7); Immature Grans % 0.6 %; Lymphocytes % 34.2 %; MCH 28.5 pg (27.0-33.0); MCHC 32.4 % (32.0-36.0); MCV 88 fL (80-95); MPV 9.7 fL (8.0-11.0); Platelet Count 408 10^3/uL (130-400); RDW 12.5 % (11.7-14.6); RDW-SD 40.2 fL; WBC 12.07 10^3/uL (4.4-10.8)
[2024-06-27 18:52] LABS: Bilirubin Negative (Negative); Blood Negative (Negative); Clarity Clear (Clear); Glucose Negative (Negative); Ketones Negative (Negative); Leukocyte Esterase Trace (Negative); Nitrite Negative (Negative); Specific Gravity 1.025 (1.005-1.025); Urobilinogen 0.2 mg/dL (Up to 0.2)
[2024-06-27 18:59] LABS: ALT 24 U/L (14-59); AST 14 U/L (15-37); Albumin 3.5 g/dL (3.4-5.0); Alkaline Phosphatase 74 U/L (46-116); Anion Gap 7.9 mmol/L (3-11); BUN 10 mg/dL (7-18); Bilirubin, Total 0.2 mg/dL (0.2-1.0); CO2 27.1 mmol/L (21.0-32.0); CREATININE 0.6 mg/dL (0.55-1.02); Calcium 9.4 mg/dL (8.5-10.1); Chloride 107 mmol/L (98-107); Estimated GFR 122.23 (mL/min/1.73m2); Glucose 88 mg/dL (74-106); Lipase 35 U/L (<78); Potassium 3.5 mmol/L (3.5-5.1); Sodium 142 mmol/L (136-145)
--- NOTE | 2024-06-27 19:00 | DI.CT_ITS ---
Exam(s) CT ABDOMEN PELVIS W EXAM: CT ABDOMEN PELVIS W CLINICAL HISTORY: RLQ abd pain TECHNIQUE: Imaging Protocol: Axial computed tomography images with coronal and sagittal reformatted images were created and reviewed. CONTRAST MATERIAL: Intravenous: Omnipaque 350 Contrast volume:100 mL Oral: No COMPARISON: CT CT ABDOMEN PELVIS WO/W from 09/14/2023 FINDINGS: ABDOMEN: Lung Bases: No acute abnormality. Liver: Normal density. No measurable mass. Portal, Superior Mesenteric, and Splenic Veins: Unremarkable. Gallbladder and Biliary Tract: Cholelithiasis. No biliary ductal dilatation. Pancreas: Normal density, no abnormal calcifications or inflammatory process. Spleen: Normal. Adrenals: No masses seen. Kidneys: Normal size, contour and axis. No radiodense stones or obstructive uropathy. There are simpl e bilateral renal cysts. No follow-up is recommended. Abdominal Aorta: Abdominal portion non-dilated. Bowel: No obstruction or bowel wall thickening. No evidence of appendicitis. Peritoneal Cavity: There is a trace amount of free fluid in the right pelvis which is likely physiolo gic. No free air. Lymph Nodes: Within normal limits. Bones: Within normal limits for the patient's age. Soft Tissues: Unremarkable. PELVIS: Bladder: Symmetric distention, no gross wall thickening. Reproductive Organs: There is a 2.7 cm right ovarian cyst which is likely physiologic. Lymph Nodes: Within normal limits. Bones: Within normal limits for the patient's age. IMPRESSION: 1. No acute abdominal or pelvic process. 2. No evidence of acute appendicitis. 3. Cholelithiasis. 4. 2.7 cm right ovarian cyst in a trace amount of free fluid in the pelvis. These are likely physiol ogic findings. RADIATION DOSE DELIVERED: 1,195.52mGy.cm Total DLP DATA REPOSITORY: All CT scans at this facility are submitted to the National Radiology Data Registry (NRDR) Dose Index Registry (DIR) with the [employer] (ACR). RADIATION OPTIMIZATION: All CT scans at this facility use at least one of these dose optimization te chniques: automated exposure control; mA and/or kV adjustment per patient size (includes targeted exa ms where dose is matched to clinical indication); or iterative reconstruction.
[2024-06-27 19:06] LABS: Bacteria Rare HPF (Negative); C & S Indicated? No/Sq. Contamination; Casts Negative LPF (Negative); Crystals Negative HPF (Negative); Epithelial Cells Many HPF (Negative); Mucus Negative (Negative); Other Cells Rare Transitional (Negative); RBC 0-2 HPF (0-2)
[2024-06-27] MEDS: Omnipaque 350 MG/ML 100 ML BTL 75 ML IJ (20:08)
[2024-06-27] MEDS: Normal Saline - Diluent 50 ML VIAL IJ (20:10)
--- NOTE | 2024-06-27 20:52 | DI.VRAD_ITS ---
PROCEDURE INFORMATION: Exam: CT Abdomen And Pelvis With Contrast Exam date and time: 06/27/2024 8:06 PM Age: 34 years old Clinical indication: Other: Rlq abd pain TECHNIQUE: Imaging protocol: Computed tomography of the abdomen and pelvis with contrast. Contrast material: OMNIPAQUE 350; Contrast volume: 100 ml; Contrast route: INTRAVENOUS (IV); COMPARISON: CT ABDOMEN PELVIS WO/W 09/14/2023 8:50 AM FINDINGS: Liver: Normal. No mass. Gallbladder and biliary ducts: Gallstones. Pancreas: Normal. No ductal dilation. Spleen: Normal. No splenomegaly. Adrenal glands: Normal. No mass. Kidneys and ureters: Bosniak type 1 renal cysts the largest of which measures 1.3 cm on the right. No further imaging follow-up is necessary. Stomach and bowel: Unremarkable. No obstruction. No mucosal thickening. Appendix: No evidence of appendicitis. Intraperitoneal space: Unremarkable. No free air. No significant fluid collection. Vasculature: Unremarkable. No abdominal aortic aneurysm. Lymph nodes: Unremarkable. No enlarged lymph nodes. Urinary bladder: Unremarkable as visualized. Reproductive: Bilateral adnexal cyst likely ovarian in etiology. Endometrial thickening likely on the basis of patient's menstrual cycle. Small amount of free fluid identified in the pelvis likely on the basis of a recently ruptured ovarian follicle/cyst. Bones/joints: Unremarkable. No acute fracture. Soft tissues: Unremarkable. IMPRESSION: 1. Small amount of free fluid identified in the pelvis likely on the basis of a recently ruptured ovarian follicle/cyst. 2. Cholelithiasis. Dictated and Authenticated by: Olivier Velasquez MD. Orderin Madiha Garcia MD
== END 2024-06-27 21:28 | disposition home or self-care (01) ==
PROVIDERS: Emergency Provider Registered Nurse Emergency; PCP Family Medicine
DX: N83.201 Unspecified ovarian cyst, right side (principal); R10.31 Right lower quadrant pain
CPT/HCPCS: 80053; 81025; 83690; 99285; 74177; 81003; 81015; 83735; 85025; 99283; J3490

== ENCOUNTER 2024-07-30 17:04 | Emergency (ER) | payer MEDICAID, SELFPAY ==
[2024-07-30 17:07] VITALS: BP 115/66; PULSE 90; RESP 16; TEMP 36.7; O2SAT 97
[2024-07-30] MEDS: Silver sulfaDIAZINE 1% 25 GM TUBE TP (17:18)
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
== END 2024-07-30 17:32 | disposition home or self-care (01) ==
LOC: ER 17:27
PROVIDERS: Emergency Provider Emergency Medicine; PCP Family Medicine
DX: T21.02XA Burn of unspecified degree of abdominal wall, initial encounter (principal)
CPT/HCPCS: 99283 ×2

== ENCOUNTER 2024-12-23 02:03 | Emergency (ER) | payer MEDICAID, SELFPAY ==
[2024-12-23 02:05] VITALS: BP 164/79; PULSE 99; RESP 18; TEMP 36.4; O2SAT 100
[2024-12-23 02:10] VITALS: BP 164/79; PULSE 99; RESP 18; TEMP 36.4; O2SAT 100
--- NOTE | 2024-12-23 02:42 | W.ED.GENAD ---
Discharge Plan Disposition Patient Disposition: Home Discharge Details Clinical Impression: Gingivitis due to hypersensitivity reaction Primary Care Provider: Ben Ryan ED Provider: Almas Arroyo Home Meds and New Rx's Prescriptions: New amoxicillin 500 mg capsule 500 mg PO TID Qty: 20 0RF No Action imipramine HCl 25 mg tablet 25 mg PO QHS Discharge Instructions Instructions: Gingivitis (DC) Additional Instructions: Take 1 amoxicillin capsule every 8 hours for the next 7 days. This is an antibiotic which should help to prevent any secondary infection in the gingiva around the teeth. You should discontinue the use in the short-term of any floss or Waterpik device. You can apply the 20% topical benzocaine gel about every 2 hours as needed for acute discomfort in the gingiva. You can take up to three 200 mg ibuprofen tablets every 6 hours as needed for pain. You can take two 325 mg acetaminophen tablets every 4 hours as needed for pain. If symptoms not improving with this care plan, you should contact and follow-up with your dentist for reevaluation and further management. You can always return to the ER for any new concerns or sudden changes in your health that you feel more emergency medical attention. Discharge Data Discharge Physician: Almas Arroyo [facility] General Date/Time Provider Initiated Documentation: 12/23/24 02:05. [facility] Narrative: The patient is a 34-year-old female, who presents emergency department seen complaining of pain in the left lower jaw which began after she was using her Waterpik tonight just before bed. Patient states that she laid down to sleep and the pain became significantly more intense. When she sits upright the pain is relatively well-controlled. The patient states that there is a gap between her 2 most posterior molars on the left superior quadrant of her mouth. She feels that the pain is originating from that area gingiva between the 2 teeth where she had pain tonight. She states that while she was using the water flossing device that she had a exquisitely sharp discomfort which then caused her to have some ongoing pain. She did not improve from prior to arrival to the emergency room. Related Data Home Medications ?Medication ?Instructions ?Recorded ?Confirmed imipramine HCl 25 mg tablet 25 mg PO QHS incontinence 07/30/24 12/23/24 Held on 12/23/24. Instructions: Pt Stopped/Never Started amoxicillin 500 mg capsule 500 mg PO TID #20 caps 12/23/24 Previous Rx's ?Medication ?Instructions ?Recorded amoxicillin 500 mg capsule 500 mg PO TID #20 caps 12/23/24 Allergies Allergy/AdvReac Type Severity Reaction Status Date / Time sulfamethoxazole (From Allergy Severe Hives Verified 12/23/24 02:22 ) trimethoprim (From ) Allergy Severe Hives Verified 12/23/24 02:22 Latex, Natural Rubber Allergy Intermediate Swelling/Ed Verified 12/23/24 02:22 alonso General Stated Complaint: GenMedical LAURA: 4 Exam HENMT Other: There is some digital recession overlying the second to last molar in the left superior dentition. There is a space between the last 2 molars. Palpation of the gingiva in between these 2 teeth with a dental probe causes significant recurrence of the discomfort. There is no obvious dental swelling or abscess present. The dentition appears normal and does not appear to be painful to palpation with the probe. Course Vital Signs Vital signs: Vital Signs Temperature 36.4 C L 12/23/24 02:05 Pulse 99 H 12/23/24 02:05 Respiratory Rate 18 12/23/24 02:05 Blood Pressure 164/79 H 12/23/24 02:05 Pulse Oximetry 100 12/23/24 02:05 Temperature 36.4 C L 12/23/24 02:10 Temperature Source Temporal Artery Scan 12/23/24 02:10 Pulse 99 H 12/23/24 02:10 Respiratory Rate 18 12/23/24 02:10 Blood Pressure 164/79 H 12/23/24 02:10 Blood Pressure Position Sitting 12/23/24 02:10 Pulse Oximetry 100 12/23/24 02:10 Oxygen Delivery Method Room Air 12/23/24 02:10 Oxygen Flow Rate 0 12/23/24 02:10 Pain Level 5 12/23/24 02:17 Medical Decision Making The patient was seen and examined. To be given some oral amoxicillin for 7 days to improve any infectious process in the gums on that side. The patient will be instructed to use ibuprofen and Tylenol alternating. The patient has some topical 20% benzocaine gel applied here in the emergency room albuterol was distributed to her for home use if needed. I will recommend dental follow-up if symptoms are ongoing despite this care plan. PFSH All Active Problems (Updated 12/23/24 @ 02:46 by Almas Arroyo MD) Gingivitis due to hypersensitivity reaction (Acute) Mixed incontinence (Acute) Gross hematuria (Acute) Leg wound, left (Acute) Kidney stone (Chronic) Medical History (Updated 12/23/24 @ 02:46 by Almas Arroyo MD) Kidney stone Surgical History (Updated 04/14/24 @ 13:26 by Craig Haley MD) History of ureteroscopy H/O lithotripsy Hx of wisdom tooth extraction History of adenoidectomy Social History Smoking/Tobacco Use Status: Never Smoking risk assessment performed?: Yes Alcohol Intake: current Alcohol Intake frequency: a few times a month Alcohol type: beer and hard liquor Drug use: Daily Substance use type: marijuana Housing: apartment Do you feel safe at home: Yes Do you feel safe in your relationship?: Yes
[2024-12-23] MEDS: Acetaminophen 500 MG TAB 1000 MG PO (02:50)
[2024-12-23] MEDS: Benzocaine 20% Gel 30 GM JAR MM (02:51)
[2024-12-23] MEDS: Amoxicillin 500 MG CAP PO (02:51)
== END 2024-12-23 03:02 | disposition home or self-care (01) ==
PROVIDERS: Emergency Provider Emergency Medicine Emergency Medical Services; PCP Family Medicine
DX: K05.10 Chronic gingivitis, plaque induced (principal); R68.84 Jaw pain
CPT/HCPCS: 99283 ×2

== ENCOUNTER 2025-01-01 14:48 | Outpatient (CLI) | payer MEDICAID, SELFPAY ==
--- NOTE | 2025-01-01 | DI.RAD_ITS ---
Exam(s) XR CERVICAL SPINE COMP 4-5V EXAM: XR CERVICAL SPINE COMP 4-5V CLINICAL HISTORY: R20.2 Paresthesia of skin, tingling upper extremity. TECHNIQUE: 2D digital imaging was performed. COMPARISON: No exams were available for comparison FINDINGS: Six views: 5 conventional views plus an additional swimmer's view There is no evidence of fracture, listhesis, nor offset of the spinal laminar line and there is no prevertebral soft tissue swelling. Bone density is normal. There is no significant disc space narrowing. No obvious facet arthropathy. No cervical ribs. No osseous lesions. Oblique views reveal no Luschka joint osteophytes. IMPRESSION: No significant radiographic findings on these 6 views of the cervical spine. DATA REPOSITORY: RADIATION DOSE DELIVERED:
== END 2025-01-01 15:08 ==
LOC: DI 14:50
PROVIDERS: PCP Family Medicine; Visit Provider Nurse Practitioner Family
DX: R20.2 Paresthesia of skin (principal)
CPT/HCPCS: 72050

== ENCOUNTER 2025-02-11 18:01 | Emergency (ER) | payer MEDICAID, SELFPAY ==
[2025-02-11 18:05] VITALS: BP 135/86; PULSE 93; RESP 16; TEMP 36.9; O2SAT 99
--- NOTE | 2025-02-11 18:26 | W.ED.GENAD ---
Discharge Plan Disposition Patient Disposition: Home Condition: Stable Discharge Details Clinical Impression: Pain, dental Primary Care Provider: Bess Torres ED Provider: Radha Cleary Home Meds and New Rx's Prescriptions: New clindamycin HCl 150 mg capsule 450 mg PO TID 7 Days Qty: 63 0RF Rx Instructions: Please take 3 capsules by mouth 3 times daily for the next 7 days No Action amoxicillin 500 mg capsule 500 mg PO TID Qty: 20 0RF imipramine HCl 25 mg tablet 25 mg PO QHS Discharge Instructions Instructions: Dental Pain ED Additional Instructions: Please take the antibiotics and apply the HurriCaine gel up to 3 times daily as needed and the antibiotics as prescribed. You do need to see a dentist. Please take Tylenol or Ibuprofen with food every 4-6 hours as needed for pain and swelling. Follow up with primary care provider in 3-5 days. Return to ED sooner if any worsening or concerns. Stand Alone Forms: Portal Information Referrals: Bess Torres [Primary Care Provider, Medicine] - 5 days Discharge Data Discharge Date/Time-TO BE ENTERED AT DEPARTURE: 02/11/25 18:52 HPI General Mode of arrival: ambulatory. Date/Time Provider Initiated Documentation: 02/11/25 18:11. Limitations to Documentation: no limitations. Information obtained by: patient, RN notes reviewed and old records reviewed. HPI Narrative: 34-year-old female presents to the ER with a chief complaint of left upper jaw tooth pain for the last few days. Has not taken any Tylenol or ibuprofen prior to arrival. She does have some dental caries noted no area of fluctuance or dental abscess noted. TMs bilaterally within normal limits she is speaking in full sentences. Related Data Home Medications Medication Instructions Recorded Confirmed imipramine HCl 25 mg tablet 25 mg PO QHS incontinence 07/30/24 12/23/24 Held on 12/23/24. Instructions: Pt Stopped/Never Started amoxicillin 500 mg capsule 500 mg PO TID #20 caps 12/23/24 clindamycin HCl 150 mg capsule 450 mg (3 x 150 mg) PO TID Dental 02/11/25 Infection 7 days #63 caps Previous Rx's Medication Instructions Recorded amoxicillin 500 mg capsule 500 mg PO TID #20 caps 12/23/24 clindamycin HCl 150 mg capsule 450 mg (3 x 150 mg) PO TID Dental 02/11/25 Infection 7 days #63 caps Allergies Allergy/AdvReac Type Severity Reaction Status Date / Time sulfamethoxazole (From Allergy Severe Hives Verified 02/11/25 18:07 ) trimethoprim (From ) Allergy Severe Hives Verified 02/11/25 18:07 Latex, Natural Rubber Allergy Intermediate Swelling/Ed Verified 02/11/25 18:07 alonso General Stated Complaint: DentalOral LAURA: 4 Review of Systems ENT Ears, Nose, Mouth, and Throat: Reports as per HPI, Reports dental pain and Reports facial pain Exam Narrative Exam Narrative: Constitutional: Alert and oriented x3. Appears stated age. Normal body habitus. Head: Normocephalic, no trauma. Eyes: Pupils PERRL, Red reflex noted, EOM's intact. Eyelids symmetrical without lesions, discharge, or swelling. ENT: Bilateral TM's WNL, External ear normal to inspection, no mastoid TTP, swelling, or erythema, Nasal turbinates WNL, no nasal discharge. No caries noted to left upper molar, no surrounding swelling or fluctuance no drainage noted, posterior pharynx WNL, no exudate. Chest: RRR, Normal S1, S2, distal pulses intact. Resp: Lungs clear to auscultation bilaterally, no wheezes, rales, or rhonchi. Abdomen: Soft, non-distended, Normoactive bowel sounds all 4 quads. Musculoskeletal: Normal gait, Moves all 4 extremities without difficulty. Skin: No suspicious rashes or lesions. Capillary refill less than 2 sec. Neurologic: Cranial nerves II-XII intact. Alert and oriented x 3. Motor: No deficits noted. Sensory: Intact bilaterally all 4 extremities. Hematologic/Lymphatic: No ecchymosis, no lymphadenopathy. Course Vital Signs Vital signs: Vital Signs Temperature 36.9 C 02/11/25 18:05 Pulse 93 H 02/11/25 18:05 Respiratory Rate 16 02/11/25 18:05 Blood Pressure 135/86 02/11/25 18:05 Pulse Oximetry 99 02/11/25 18:05 Temperature 36.9 C 02/11/25 18:05 Pulse 93 H 02/11/25 18:05 Respiratory Rate 16 02/11/25 18:05 Blood Pressure 135/86 02/11/25 18:05 Pulse Oximetry 99 02/11/25 18:05 Oxygen Delivery Method Room Air 02/11/25 18:05 Oxygen Flow Rate 0 02/11/25 18:05 Medical Decision Making 34-year-old female presents to the ER with a chief complaint of left upper jaw tooth pain for the last few days. Has not taken any Tylenol or ibuprofen prior to arrival. She does have some dental caries noted no area of fluctuance or dental abscess noted. TMs bilaterally within normal limits she is speaking in full sentences. Given Hurricaine gel and Clindamycin and Ibuprofen. Given dental resources. No evidence for fluctuance or drainable abscess at this time. No otitis media. No facial swelling. Patient given prescription for 7 days of clindamycin and instructions for follow-up with dentist. She verbalized understanding. This text was generated using [employer] dictation system, please disregard any oddities of phrase or misspellings. PFSH All Active Problems Pain, dental (Acute) Mixed incontinence (Acute) Gross hematuria (Acute) Leg wound, left (Acute) Kidney stone (Chronic) Medical History Kidney stone Surgical History History of ureteroscopy H/O lithotripsy Hx of wisdom tooth extraction History of adenoidectomy Social History Smoking/Tobacco Use Status: Never Smoking risk assessment performed?: Yes Alcohol Intake: current Alcohol Intake frequency: a few times a month Alcohol type: beer and hard liquor Drug use: Daily Substance use type: marijuana Housing: apartment Do you feel safe at home: Yes Do you feel safe in your relationship?: Yes
[2025-02-11] MEDS: Clindamycin 150 MG CAP, 12 CAPS/BTL 450 MG PO (18:46)
[2025-02-11] MEDS: Ibuprofen 800 MG TAB PO (18:46)
[2025-02-11 18:48] VITALS: BP 135/86; PULSE 93; RESP 16; TEMP 36.9; O2SAT 99
== END 2025-02-11 18:52 | disposition home or self-care (01) ==
PROVIDERS: Emergency Provider Registered Nurse Emergency; PCP Nurse Practitioner Family
DX: K08.89 Other specified disorders of teeth and supporting structures (principal)
CPT/HCPCS: 99283